=== PATIENT | female | born 1945 | race Caucasian/White ===

== ENCOUNTER 2020-09-27 13:11 | Outpatient (CLI) | payer MEDICARE, SELFPAY ==
--- NOTE | ~2020-09-27 | XR_ITS ---
EXAMINATION: XR knee LT 3V DATE: 09/27/2020 13:37 INDICATION: Left knee pain TECHNIQUE: Three views of the left knee were obtained. COMPARISON: None. FINDINGS: Alignment is normal. No fracture or osteochondral lesion. There is moderate tricompartmenta l osteoarthritis. No joint effusion/synovitis. Soft tissues are unremarkable. IMPRESSION: 1. Moderate tricompartmental osteoarthritis. Reviewed, dictated and finalized at location A. PHONE SERVICES SALES REPRESENTATIVE
== END 2020-09-27 13:12 | disposition home or self-care (01) ==
PROVIDERS: PCP Physician Assistant; Referring Provider Orthopaedic Surgery; Visit Provider Physician Assistant
DX: M25.562 Pain in left knee (principal); M17.12 Unilateral primary osteoarthritis, left knee
CPT/HCPCS: 73562

== ENCOUNTER 2020-10-21 08:29 | Outpatient (CLI) | payer MEDICARE, SELFPAY ==
--- NOTE | ~2020-10-21 | DEXA_ITS ---
Bone Density Report Name: Joanie Hyde Age: 75 Sex: Female Ethnicity: White Date of : 1945 Indication: postmenopausal; prior fracture; hysterectomy; Referring Provider: Sj Garcia Study: Bone densitometry was performed. Exam Date: October 21, 2020 Accession number: [id number] Bone Density: Region BMD T-score Z-score Classification AP Spine (L1, L4) 0.899 -1.3 1.3 Osteopenia Femoral Neck (Left) 0.604 -2.2 0.0 Osteopenia Total Hip (Left) 0.868 -0.6 1.3 Normal Total Hip Bilateral Avg 0.853 -0.8 1.2 Normal Femoral Neck (Right) 0.627 -2.0 0.2 Osteopenia Total Hip (Right) 0.836 -0.9 1.0 Normal World Health Organization criteria for BMD impression classify patients as: Normal (T-score at or above -1.0), Osteopenia (T-score between -1.0 and -2.5), or Osteoporosis (T-score at or below -2.5). 10-year Fracture Risk(1): Major Osteoporotic Fracture 22% Hip Fracture 6.1% Reported Risk Factors: [place] (), Neck BMD=0.604, BMI=25.7, previous fracture (1) FRAX(R) Version 3.08. Fracture probability calculated for an untreated patient. Fracture probability may be lower if the patient has received treatment. Previous Exams: Region Exam Age BMD T-score BMD Change BMD Change Date g/cm2 vs Baseline vs Previous AP Spine(L1, L4) 10/21/2020 75 0.899 -1.3 -0.151(-14.4%) -0.151(-14.4%) 02/16/2011 65 1.050 0.1 Total Hip(Left) 10/21/2020 75 0.868 -0.6 -0.005(-0.6%)# -0.005(-0.6%)# 02/16/2011 65 0.873 -0.6 Total Hip(Right) 10/21/2020 75 0.836 -0.9 -0.034(-3.9%)# -0.034(-3.9%)# 02/16/2011 65 0.870 -0.6 *Denotes significance at 95% confidence level, LSC for AP Spine = 0.022 g/cm2, LSC for Total Hip = 0.027 g/cm2 Clinical Information Provided by Patient: Has had a low trauma fracture Has used the following medications: Fosamax (i.e. alendronate), Vitamin D, Calcium Has the following medical conditions: Hysterectomy Patient maximum height was 63 Does not regularly consume dairy products Onset of menses at age 7 Number of children 0 Impression: The patient has low bone mass, based on the Left Femoral Neck T-score. The patient has an estimated ten-year risk of hip fracture of 6.1% and an estimated ten-year risk of major fracture of 22%, based on the WHO FRAX algorithm. The patient has risk factors, including: previous fracture. No significant bone loss was observed. Discussion: BONE DENSITY IS LOW AT ONE OR MORE SKELETAL SITE
== END 2020-10-21 08:30 | disposition home or self-care (01) ==
PROVIDERS: PCP Physician Assistant; Visit Provider Physician Assistant
DX: M81.0 Age-related osteoporosis without current pathological fracture (principal); M85.852 Other specified disorders of bone density and structure, left thigh; M85.851 Other specified disorders of bone density and structure, right thigh; M85.88 Other specified disorders of bone density and structure, other site
CPT/HCPCS: 77080

== ENCOUNTER 2021-02-05 06:41 | Outpatient (CLI) | payer MEDICARE, SELFPAY ==
--- NOTE | 2021-02-05 07:30 | ECG_ITS ---
Measurements Intervals [place] Rate: 58 P: 28 ND: 180 QRS: 14 QRSD: 78 T: 31 QT: 422 QTc: 416 Interpretive Statements SINUS BRADYCARDIA BASELINE ARTIFACT- II, III, AVR, AVL, AVF, V1-V6 BORDERLINE ECG Electronically Signed On 02-05-2021 7:54:37 CDT by Jason Maldonado D.O.
== END 2021-02-05 06:42 | disposition home or self-care (01) ==
PROVIDERS: PCP Family Medicine; Visit Provider Family Medicine
DX: Z01.818 Encounter for other preprocedural examination (principal); R94.31 Abnormal electrocardiogram [ECG] [EKG]
CPT/HCPCS: 93005

== ENCOUNTER 2021-03-02 07:53 | Outpatient (CLI) | payer MEDICARE, SELFPAY ==
[2021-03-02 09:34] LABS: Basophils Percent Auto 0.5 % (0.2-1.2); Eosinophils Absolute Auto 0.1 K/mm3 (0-0.3); Eosinophils Percent Auto 2.3 % (0-4.4); Hematocrit 37.1 % (37.0-47.0); Hemoglobin 12.2 g/dL (12.0-15.0); Immature Granulocyte Absolute 0.01 K/mm3 (0.00-0.031); Immature Granulocyte Percent A 0.3 % (0-0.5); Lymphocytes Absolute Auto 1.63 K/mm3 (0.9-3.2); Lymphocytes Percent Auto 40.8 % (18.3-44.2); Mean Corpuscular HGB Conc 32.9 g/dl (32-36); Mean Corpuscular Hemoglobin 30.3 pg (26-34); Mean Corpuscular Volume 92.3 fl (80-100); Mean Platelet Volume 11.4 fl (7.4-10.4); Monocytes Absolute Auto 0.4 K/mm3 (0.1-0.6); Monocytes Percent Auto 9.5 % (2.6-8.5); Neutrophils Absolute Auto 1.9 K/mm3 (1.3-6.7); Neutrophils Percent Auto 46.6 % (45.5-73.1); Platelet Count Result 218 k/mm3 (150-375); Red Blood Count 4.02 M/mm3 (4.2-5.4); Red Cell Distribution Width 13.2 % (11.5-14.5)
[2021-03-02 09:56] LABS: Albumin Level 4.4 g/dL (3.5-5.1); Anion Gap 8 mmol/L (8-16); Blood Urea Nitrogen 11 mg/dL (7-17); Calcium 9.2 mg/dL (8.4-10.2); Carbon Dioxide 27 mmol/L (22-30); Chloride 98 mmol/L (98-107); Estimated Glomerular Filt Rate > 60; Glucose 94 mg/dL (65-110); Potassium 3.9 mmol/L (3.4-5.0); Sodium 133 mmol/L (137-145)
[2021-03-02 10:07] LABS: Hemoglobin A1C 5.9 % (<5.7)
[2021-03-02 10:36] LABS: Urine Cotinine NEGATIVE
== END 2021-03-02 07:54 | disposition home or self-care (01) ==
LOC: ANHSURGERY 07:57
PROVIDERS: PCP Family Medicine; Visit Provider Orthopaedic Surgery
DX: M17.12 Unilateral primary osteoarthritis, left knee (principal); Z01.818 Encounter for other preprocedural examination
CPT/HCPCS: 80048; 80307; 82040; 83036; 85025; 87070

== ENCOUNTER 2021-05-04 07:52 | Outpatient (CLI) | payer MEDICARE, SELFPAY ==
[2021-05-04 08:21] LABS: Basophils Percent Auto 0.3 % (0.2-1.2); Eosinophils Absolute Auto 0.1 K/mm3 (0-0.3); Eosinophils Percent Auto 2.7 % (0-4.4); Hematocrit 36.4 % (37.0-47.0); Immature Granulocyte Absolute 0.01 K/mm3 (0.00-0.031); Immature Granulocyte Percent A 0.3 % (0-0.5); Lymphocytes Absolute Auto 1.56 K/mm3 (0.9-3.2); Lymphocytes Percent Auto 42.3 % (18.3-44.2); Mean Corpuscular Hemoglobin 32.2 pg (26-34); Mean Corpuscular Volume 97.6 fl (80-100); Mean Platelet Volume 10.7 fl (7.4-10.4); Monocytes Absolute Auto 0.4 K/mm3 (0.1-0.6); Monocytes Percent Auto 10.3 % (2.6-8.5); Neutrophils Absolute Auto 1.6 K/mm3 (1.3-6.7); Neutrophils Percent Auto 44.1 % (45.5-73.1); Platelet Count Result 212 k/mm3 (150-375); Red Blood Count 3.73 M/mm3 (4.2-5.4); Red Cell Distribution Width 13.7 % (11.5-14.5); White Blood Count 3.7 K/mm3 (4.5-10.0)
[2021-05-04 09:45] LABS: Albumin Level 4.5 g/dL (3.5-5.1); Anion Gap 8 mmol/L (8-16); Blood Urea Nitrogen 12 mg/dL (7-17); Calcium 9.3 mg/dL (8.4-10.2); Carbon Dioxide 29 mmol/L (22-30); Chloride 102 mmol/L (98-107); Estimated Glomerular Filt Rate > 60; Glucose 99 mg/dL (65-110); Sodium 139 mmol/L (137-145)
[2021-05-04 10:58] LABS: Urine Cotinine NEGATIVE
== END 2021-05-04 07:53 | disposition home or self-care (01) ==
LOC: ANHSURGERY 07:58
PROVIDERS: PCP Family Medicine; Visit Provider Orthopaedic Surgery
DX: Z01.812 Encounter for preprocedural laboratory examination (principal); M17.12 Unilateral primary osteoarthritis, left knee; Z51.81 Encounter for therapeutic drug level monitoring; Z79.899 Other long term (current) drug therapy
CPT/HCPCS: 80048; 80307; 82040; 85025; 86850; 86900; 86901; 87070

== ENCOUNTER 2021-05-10 00:19 | Day surgery (SDC) | payer MEDICARE, SELFPAY ==
[2021-03-02 08:19] VITALS: BP 118/62; PULSE 66; RESP 18; TEMP 36.7; O2SAT 97; BMI 23.3
[2021-04-26 15:11] VITALS: BMI 25.7
--- NOTE | 2021-05-07 07:42 | PM.IMHP ---
H&P: HPI History of Present Illness Date/Time: 05/07/21 07:42 75-year-old female patient of Dr. Plunkett who presents today for left [place] partial knee replacement versus total knee arthroplasty. She has been having pain in his knee for years. Tried a cortisone injection in the past without improvement of her symptoms. She has tried physical therapy. She continues to have symptoms on a daily basis. She has cshs-vt-prst arthritis medial compartment of the knee. She feels that the pain is affecting her daily basis particular daily activities. She feels at this point she would like to proceed with surgery rather continue nonsurgical treatment. She has been evaluated is felt to be a good candidate for partial knee replacement. Chief Complaint: Left knee DJD Review of Systems Review of Systems: All systems reviewed & are unremarkable except as noted in HPI and below PMFSH Past Medical History Medical History Acute psychosis Anxiety Bilateral cataracts Chronic right-sided low back pain without sciatica Dyslipidemia Ganglion cyst of finger correction current use of antipsychotic medication Mood disorder Severe anxiety Wart Surgical History Surgical History History of hysterectomy History of toe surgery wart removal-right foot 5th toe Family History Family History Mother Family history of Parkinson's disease Sibling Patient's sister is in good health Family history of throat cancer, Onset Age: 39 Patient's brother is Other Family history of malignant neoplasm of breast Family history of malignant neoplasm of breast in first degree relative Social History Social History Second hand tobacco smoke exposure: No Alcohol intake: never Substance use: never Substance use type: does not use Additional living arrangements comments: HUSB Gender identity (if verbalized by the patient): Female Spiritual care concerns: No Agree to blood products: Yes Meds Home Medications and Allergies Home Medications Medication Instructions Recorded Confirmed Type buspirone 5 mg tablet 5 mg PO BID 09/16/19 04/26/21 History calcium carb 300 mg-D3 800 1 tablet PO TID tablet 09/16/19 04/26/21 History 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 0.5 mg-vikas-Zn tablet divalproex 250 mg tablet,delayed 250 mg PO Q12H 09/16/19 04/26/21 History release flaxseed oil 1,000 mg capsule 1,000 mg PO BID 09/16/19 04/26/21 History multivitamin with minerals 1 tablet PO DAILY 09/16/19 04/26/21 History risperidone 0.5 mg tablet 0.5 mg PO BID 09/16/19 04/26/21 History biotin 5,000 mcg disintegrating 5,000 mcg PO DAILY 06/10/20 04/26/21 History tablet garlic 1,000 mg capsule 1,000 mg PO DAILY 09/21/20 04/26/21 History cholecalciferol (vitamin D3) 50 mcg PO DAILY 03/02/21 04/26/21 History srvlt-jibpj-0-ygw-wsk-wlgfwt 1 cap PO DAILY 03/02/21 04/26/21 History Allergies Allergy/AdvReac Type Severity Reaction Status Date / Time cat dander Allergy Unknown Unknown Verified 04/29/21 10:05 Iodinated Contrast Media Allergy Unknown Hives Verified 04/29/21 10:02 Exam Narrative: 75-year-old female alert pleasant. She is 5 ft 2 and 143 lb. She has a very minimal effusion in the left knee. Range of motion is from 2-135 degrees. Hip range of motion is full without discomfort. She has moderate tenderness over the medial joint line palpation. She has no pain with patellofemoral grind. No lateral joint line tenderness. She has pseudolaxity medially to valgus stress. 2+ dorsalis pedis and posterior tibial artery pulse. No numbness or tingling in the left lower extremity. extremity. Resp: Auscultation: clear to auscultation bilaterally Cardio: Rate: regular rate Rhythm: regular rhythm Assessment and Plan Bang
--- NOTE | 2021-05-07 13:59 | WPDANESEPPF ---
Anes - Initial Pre Proc Eval Procedure: Operation Date: 05/10/21 07:30 Proposed Procedures p Left [place] Partial Knee Replacement Versus Possible Left Total Knee Arthroplasty - Dalton Bowser MD Date/Time: 05/07/21 13:59 Surgeon: Dalton Bowser MD Pre Op Diagnosis: medial compartment OA left knee Patient Data Age: 75 Gender: F Height: 1.59 m Weight: 65 kg Last Vital Signs Temp 98.0 F 03/02/21 08:19 Pulse 66 03/02/21 08:19 Resp 18 03/02/21 08:19 BP 118/62 03/02/21 08:19 Pulse Ox 97 03/02/21 08:19 Allergies Allergy/AdvReac Type Severity Reaction Status Date / Time cat dander Allergy Unknown Unknown Verified 05/10/21 06:09 Iodinated Contrast Media Allergy Unknown Hives Verified 05/10/21 06:09 Home Medications Medication Instructions Recorded Confirmed Type buspirone 5 mg tablet 5 mg PO BID 09/16/19 05/10/21 History calcium carb 300 mg-D3 800 1 tablet PO TID tablet 09/16/19 05/10/21 History unit-mag ox 25 mg-coper hand 0.5 mg-vikas-Zn tablet divalproex 250 mg tablet,delayed 250 mg PO Q12H 09/16/19 05/10/21 History release flaxseed oil 1,000 mg capsule 1,000 mg PO BID 09/16/19 05/10/21 History multivitamin with minerals 1 tablet PO DAILY 09/16/19 05/10/21 History risperidone 0.5 mg tablet 0.5 mg PO BID 09/16/19 05/10/21 History biotin 5,000 mcg disintegrating 5,000 mcg PO DAILY 06/10/20 05/10/21 History tablet garlic 1,000 mg capsule 1,000 mg PO DAILY 09/21/20 05/10/21 History cholecalciferol (vitamin D3) 50 mcg PO DAILY 03/02/21 05/10/21 History jmdlz-mybdd-[id number]-ayi-[id number]-mvbqre 1 cap PO DAILY 03/02/21 05/10/21 History Patient hx anesthesia problems: none Family hx anesthesia problems: none Results Review: All pre-operative results and documents have been reviewed as part of the pre-operative evaluation. 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 of antipsychotic medication Mood disorder Severe anxiety Wart Surgical History Surgical History History of hysterectomy History of toe surgery wart removal-right foot 5th toe Family History Family History Mother Family history of Parkinson's disease Sibling Patient's sister is in good health Family history of throat cancer, Onset Age: 39 Patient's brother is Other Family history of malignant neoplasm of breast Family history of malignant neoplasm of breast in first degree relative Social History Social History Second hand tobacco smoke exposure: No Alcohol intake: never Substance use: never Substance use type: does not use Living arrangements: with family Additional living arrangements comments: PERRY Gender identity (if verbalized by the patient): Female Spiritual care concerns: No Agree to blood products: Yes Anes - Eval Final PreProcedure Day of Procedure 05/07/21 13:59 Patient weight: normal Heart: regular rate and rhythm Lungs: clear to auscultation Airway: Mallampati scale class II Neurological: alert and oriented Last oral intake: >/= 8 hours ASA classification: III Emergent: no Anesthetic plan: proceed Anesthesia type and monitoring: general LMA and standard monitoring Results Review: All pre-operative results and documents have been reviewed as part of the pre-operative evaluation. Informed Consent: The patient's anesthetic plan and its attendant risks and benefits were discussed with the patient/family/POA. Questions were solicited and answers provided to the satisfaction of the patient/family/POA.
[2021-05-10] VITALS (18 sets, daily range): BP systolic 115–156; BP diastolic 44–95; PULSE 66–90; RESP 13–18; TEMP 36–36.6; O2SAT 94–100
--- NOTE | ~2021-05-10 | XR_ITS ---
EXAMINATION: XR knee LT 2V DATE: 05/10/2021 11:01 CDT INDICATION: Left partial knee arthroplasty TECHNIQUE: 2 views left knee FINDINGS: There is a left partial medial unicompartmental knee arthroplasty in expected position. Noriega bcutaneous gas with fluid and air in the joint and overlying skin juanjose are consistent with recent surgery. No evidence of periprosthetic fracture. IMPRESSION: 1. Recent left partial medial unit compartmental knee arthroplasty. Reviewed, dictated and finalized at location B.
--- NOTE | ~2021-05-10 | XR_ITS ---
EXAMINATION: XR surgery orthopedic DATE: 05/10/2021 09:27 INDICATION: Partial left knee arthroplasty. TECHNIQUE: A single intraoperative fluoroscopic view of the left knee was obtained. I was not present . Fluoroscopy exposure time was 1 minute 15 seconds. COMPARISON: Left knee radiographs 09/27/2020 FINDINGS: The tibial component of a medial compartment arthroplasty is noted in expected position. IMPRESSION: 1. Medial compartment arthroplasty in progress. Reviewed, dictated and finalized at location A.
[2021-05-10] MEDS: LACTATED RINGERS 1,000 ML 30 ML IV CONT ×2 (06:30→11:00)
[2021-05-10] MEDS: ACETAMINOPHEN 500 MG TABLET 1000 MG PO ×3 (06:47→19:19)
[2021-05-10] MEDS: TRANEXAMIC ACID 1,000MG/ISO100 1,000 MG/100 ML BAG 200 MG IVPB (07:00)
--- NOTE | 2021-05-10 07:13 | WPDHPUPDATE1 ---
History and Physical Update Update Date/Time: 05/10/21 07:13 History and Physical has been reviewed, including an updated exam of the patient. There are NO changes in the patient's condition. Risks, benefits, and alternatives have been discussed and questions answered. Patient agrees to proceed with procedure.
[2021-05-10] MEDS: ceFAZolin 2 GM/D5W 50 ML 2 GM/50 ML BAG IVPB (07:30)
[2021-05-10] MEDS: ceFAZolin SODIUM 1 GM VIAL 3 GM IRRIGATION (08:59)
[2021-05-10] MEDS: GENTAMICIN BONE CEMENT REFOBACIN 1 EACH TOPICAL (09:34)
[2021-05-10] MEDS: ceFAZolin SODIUM 1 GM VIAL IV PUSH (10:09)
[2021-05-10] MEDS: TRANEXAMIC ACID 1,000 MG/10 ML AMPUL 1000 MG IV PUSH (10:14)
--- NOTE | 2021-05-10 11:14 | W.PM.PROC2 ---
Procedure Note - Detailed Date of Procedure 05/10/21 Pre-op Diagnosis medial compartment OA left knee Post-op Diagnosis same Procedure Performed [place] partial knee replacement medial compartment left knee Surgeon Dalton Bowser MD Film Spooler Te Anesthesia general Indications Pain Description of Procedure Patient was brought to the operating room and general anesthesia was administered. She was given 2 g of Ancef weight based vancomycin 1 g of tranexamic acid preoperatively and the left leg positioned on the special thigh farley and the knee prepped draped usual fashion. Limb was exsanguinated tourniquet elevated to 250 mmHg. A for inch incision was made from just medial to the superior pole of the patella to medial to the tibial tubercle. Arthrotomy was made in line with the incision. A 1 cm split the vastus medialis utilized for exposure. A little bit of the infrapatellar fat pad was excised. Osteophytes from around the intercondylar notch inferior medial patella and medial femoral condyle anterior tibial plateau were removed. The small spoon was the appropriate size. The 3 mm spoon fit without excessive tension. We linked the 3 mm spoon the tibial cutting guide with the 3 mm G clamp and the guide was pinned in position. We tried to achieve approximately 7? of posterior slope. The vertical and horizontal cuts the tibial wafer were made and the wafer was removed. It was a little bit to in medial to lateral for the size a tibia. He had fluoro any cm and we could see that a would overhang and removed additional 3 mm bone from vertical which allowed the a to over only overhang about 1 mm later when we are assessing the bearing tracking we could see that we could remove 1 more mm of bone from the vertical wall allowing the tibial tray flush with tibia with proper bearing tracking relative to the vertical wall. A guide zonia was inserted down the head medullary canal and we linked the zonia to the small femoral drill guide set at 3 mm. This was positioned on medial femoral condyle about a mm medial to the center line was drawn on the bone and the drill holes were made. Posterior cutting guide applied posterior cut made. 0 mm Jenny in the distal femur milled. Remnants of the posterior horn of medial meniscus were completely excised. We trialed and the 3 mm Feeler was appropriate at 100? of flexion the 1 mm at 20? of flexion. We chose the 2 mm spigot and this was milled and on trialing again 3 Feeler seemed appropriate and the 3 bearing was trialed and had symmetric wiggle in flexion and extension. The impingement guide was placed on the femur the anterior portion milled in a little bit of cartilage removed from posterior aspect medial femoral condyle. And the tibial tray was positioned flush with the vertical wall and the posterior edge of medial plateau and bike in place and toothbrush side used made the slot for the tibial. Step drill was used to make multiple perforations tibial plateau the distal femur. Bony surfaces were thoroughly irrigated and dried. We mixed 1 batch of methyl methacrylate and this was applied the size a [place] tibial component it then pressurized in the medial tibial plateau the tibial component fully seated small bearing on replacing the femur in the 3 mm Feeler placed at 45? of flexion for cement hardening and pressurization and the tourniquet was released. After cement hardening excess cement was carefully sought for removed the limb was re-exsanguinated and tourniquet elevated and we then repeated the cementing process with the small femur in the identical fashion. Tourniquet was released total tourniquet time 106 minutes. After cement hardening excess cement was sought for removed. We trialed the 3 bearing which has appropriate wiggle in flexion extension and appropriate tracking tracking the mm from the vertical wall at 90? and in full hyperextension about 4 mm from the vertical wall. The 3 mm small polyethylene bearing wa
[2021-05-10] MEDS: ONDANSETRON INJ 4 MG/2 ML VIAL IV PUSH (11:38)
--- NOTE | 2021-05-10 12:43 | ADMGEN ---
This patient, Joanie Hyde, was admitted to Medical Room 261-01. Patient/family oriented to hospital policies and general routines including ID bracelet, bed and alarms, visiting hours, pain management, procedures, bathroom and other care routines, personal items, smoking policy, room service/diet, and visiting hours. Information on how to activate the Rapid Response Team has been discussed. Patient/Family are encouraged to report perceived risks to care and to ask questions if they do not understand what they are told or what they should do.
[2021-05-10] MEDS: SENNA/DOCUSATE SODIUM TABLET 2 TAB PO (16:03)
[2021-05-10] MEDS: oxyCODONE HCL (*CRX) 5 MG TAB IR PO ×2 (16:04→20:32)
[2021-05-10] MEDS: FAMOTIDINE 20 MG TABLET PO (20:32)
[2021-05-10] MEDS: DIVALPROEX SODIUM DR 250 MG TABEC PO (20:32)
[2021-05-10] MEDS: busPIRone HCL 5 MG TABLET PO (20:32)
[2021-05-10] MEDS: risperiDONE 0.5 MG TABLET PO (20:33)
[2021-05-11] MEDS: ACETAMINOPHEN 500 MG TABLET 1000 MG PO ×3 (00:19→13:51)
[2021-05-11] MEDS: oxyCODONE HCL (*CRX) 5 MG TAB IR PO ×2 (00:19→04:34)
[2021-05-11 00:52] VITALS: BP 132/54; PULSE 70; RESP 16; TEMP 36.8; O2SAT 98
[2021-05-11 02:15] VITALS: BP 132/54; PULSE 70; RESP 16; TEMP 36.8; O2SAT 98
[2021-05-11 05:47] LABS: Basophils Percent Auto 0.3 % (0.2-1.2); Eosinophils Percent Auto 0.4 % (0-4.4); Hematocrit 28.5 % (37.0-47.0); Hemoglobin 9.5 g/dL (12.0-15.0); Immature Granulocyte Absolute 0.02 K/mm3 (0.00-0.031); Immature Granulocyte Percent A 0.3 % (0-0.5); Lymphocytes Absolute Auto 1.63 K/mm3 (0.9-3.2); Lymphocytes Percent Auto 21.2 % (18.3-44.2); Mean Corpuscular HGB Conc 33.3 g/dl (32-36); Mean Platelet Volume 10.7 fl (7.4-10.4); Monocytes Absolute Auto 0.7 K/mm3 (0.1-0.6); Monocytes Percent Auto 9.6 % (2.6-8.5); Neutrophils Absolute Auto 5.3 K/mm3 (1.3-6.7); Neutrophils Percent Auto 68.2 % (45.5-73.1); Platelet Count Result 192 k/mm3 (150-375); Red Blood Count 2.97 M/mm3 (4.2-5.4); Red Cell Distribution Width 13.4 % (11.5-14.5); White Blood Count 7.7 K/mm3 (4.5-10.0)
[2021-05-11 06:09] LABS: Potassium 3.8 mmol/L (3.4-5.0)
[2021-05-11 06:11] LABS: Anion Gap 3 mmol/L (8-16); Blood Urea Nitrogen 15 mg/dL (7-17); Calcium 8.7 mg/dL (8.4-10.2); Carbon Dioxide 31 mmol/L (22-30); Chloride 97 mmol/L (98-107); Estimated CRCL calculation 34 ml/min; Estimated Glomerular Filt Rate 54; Glucose 105 mg/dL (65-110); Sodium 131 mmol/L (137-145)
[2021-05-11 06:15] VITALS: BP 130/52; PULSE 67; RESP 18; TEMP 36.7; O2SAT 66
--- NOTE | 2021-05-11 06:33 | PM.PNORT ---
Progress Note: A&P Additional Plan Postop 1. Patient is alert and pleasant. Afebrile vital signs are stable. Was having some nausea overnight. She was quite nauseous in recovery room general anesthesia. Has improved. I am going to decrease her narcotic hopefully this will take care of any lasting nausea. Patient has been up walking yesterday with physical therapy. She has been up to the restroom multiple times. Her dressing is dry. Neurovascular she is intact. Will plan to have patient work with Physical therapy this morning as well as this afternoon. If she continues to do well plan discharging her home this afternoon. Morning labs were noted. Subjective Subjective Date/Time Seen: 05/11/21 06:33 Objective Data Vital Signs Vital Signs: Vital Signs - 24 hr 05/10/21 07:02 05/10/21 11:00 05/10/21 11:10 Temperature 36.2 C L 36.6 C Pulse Rate 66 83 79 Respiratory Rate 16 14 17 Blood Pressure 126/95 H 121/51 L 122/50 L Pulse Oximetry 100 97 97 05/10/21 11:20 05/10/21 11:25 05/10/21 11:32 Temperature Pulse Rate 81 81 82 Respiratory Rate 14 14 13 Blood Pressure 130/49 L 133/53 L 130/56 L Pulse Oximetry 97 97 97 05/10/21 11:40 05/10/21 11:55 05/10/21 12:00 Temperature Pulse Rate 87 90 83 Respiratory Rate 16 18 16 Blood Pressure 134/62 115/56 L 156/59 H Pulse Oximetry 97 94 94 05/10/21 12:10 05/10/21 12:25 05/10/21 12:50 Temperature 36.0 C L Pulse Rate 78 77 74 Respiratory Rate 16 16 16 Blood Pressure 135/54 L 145/53 H 127/44 L Pulse Oximetry 95 96 99 05/10/21 13:05 05/10/21 13:35 05/10/21 14:35 Temperature 36.0 C L 36.0 C L 36.4 C L Pulse Rate 75 87 73 Respiratory Rate 16 18 16 Blood Pressure 126/56 L 146/59 H 125/45 L Pulse Oximetry 99 98 96 05/10/21 17:33 05/10/21 18:45 05/10/21 21:53 Temperature 36.4 C 36.3 C L Pulse Rate 72 73 Respiratory Rate 16 16 Blood Pressure 128/50 L 122/51 L Pulse Oximetry 97 98 99 05/11/21 00:52 Temperature 36.8 C Pulse Rate 70 Respiratory Rate 16 Blood Pressure 132/54 L Pulse Oximetry 98 Intake/Output Intake/Output: Intake & Output 05/08/21 05/09/21 05/10/21 05/11/21 23:59 23:59 23:59 23:59 Intake Total 2240 250 Output Total 200 250 Balance 2040 0 Meds/Results Medications: Active Medications Generic Name Dose Route Start Last Admin Trade Name Freq PRN Reason Stop Dose Admin Acetaminophen 1,000 mg 05/10/21 19:00 05/11/21 06:28 Acetaminophen 500 Mg Tablet PO 1,000 mg Q6H NEHA Administration Apixaban 2.5 mg 05/11/21 09:00 Apixaban 2.5 Mg Tablet PO 05/22/21 21:01 Q12HR NEHA Buspirone HCl 5 mg 05/10/21 21:00 05/10/21 20:32 Buspirone Hcl 5 Mg Tablet PO 5 mg Q12HR NEHA Administration Celecoxib 100 mg 05/11/21 08:00 Celecoxib 100 Mg Capsule PO DAILY@0800 NEHA Diphenhydramine HCl 25 mg 05/10/21 12:30 Diphenhydramine Hcl Inj 50 Mg/Ml Vial IV PUSH Q6H PRN Itching Divalproex Sodium 250 mg 05/10/21 21:00 05/10/21 20:[address] 250 Mg Tabec PO 250 mg Q12HR NEHA Administration Famotidine 20 mg 05/10/21 21:00 05/10/21 20:32 Famotidine 20 Mg Tablet PO 20 mg Q12HR NEHA Administration Vancomycin HCl 1,000 mg in 250 mls @ 250 mls/hr 05/10/21 19:00 05/11/21 06:28 Vancomycin 1,000 Mg/D5w 250 Ml IVPB 05/11/21 07:59 250 mls/hr Q12H NEHA Administration Cefazolin Sodium 1 gm in 50 mls @ 100 mls/hr 05/10/21 15:30 05/11/21 00:09 Ancef 1 Gm/D5w 50 Ml Pm IVPB 05/11/21 07:59 Infused Q8H NEHA Infusion Morphine Sulfate 2 mg 05/10/21 12:30 Morphine Sulfate (*Crx) 2 Mg/Ml Inj IV PUSH Q4H PRN Pain Rated 7-10 Naloxone HCl 0.1 mg 05/10/21 12:30 Naloxone Hcl 0.4 Mg/Ml Vial IV PUSH Q2M PRN Opiate Reversal Ondansetron HCl 4 mg 05/10/21 12:30 Ondansetron Inj 4 Mg/2 Ml Vial IV PUSH Q4H PRN Nausea And Vomiting Oxycodone HCl 5 mg 05/10/21 12:30 05/11/21 04:34 Oxycodone Hcl (*Crx)
--- NOTE | 2021-05-11 06:39 | PM.DS ---
DS: Admitting Diagnosis Discharge Date 05 11 Admitting Diagnosis left knee DJD DS: Summary Hospital Course Hospital Course: stable Time Spent with Patient Time attestation: Total time spent providing and/or coordinating discharge services: 75-year-old female who underwent left [place] partial knee replacement on 05/10. Underwent the procedure without any complications. She did have some nausea immediately in recovery room. This slowly improved. She is weight-bearing as tolerated. She was up today of surgery walking and is comfortable. She has some slight nausea overnight but no vomiting. Pain medication was decreased to oxycodone 2.5 mg tab 5 mg hopefully this will continue to work well for pain control without nausea. She is on Celebrex 100 mg daily. She is also on schedule Tylenol. Patient will be discharged home 05 11. She was advised to keep leg elevated to help prevent swelling but do her exercises a regular basis. She has outpatient therapy starting on . She is on Eliquis for DVT prophylaxis for 2 weeks followed by a baby aspirin. She is also on Senokot and MiraLax for constipation. Patient was advised any questions or concerns she is call the office otherwise will see her at her appointed dates DS: Data Data Completed and Pending Labs on day of discharge: Labs from last 24 hours 05/11/21 05/11/21 05:28 05:28 WBC 7.7 RBC 2.97 L Hgb 9.5 L Hct 28.5 L MCV 96.0 MCH 32.0 MCHC 33.3 RDW 13.4 Plt Count 192 MPV 10.7 H Immature Gran % (Auto) 0.3 Neut % (Auto) 68.2 Lymph % (Auto) 21.2 [place] % (Auto) 9.6 H Eos % (Auto) 0.4 Baso % (Auto) 0.3 Lymph # (Auto) 1.63 [place] # (Auto) 0.7 H Eos # (Auto) 0.0 Baso # (Auto) 0.0 Abs Immat Gran (auto) 0.02 Absolute Neuts (auto) 5.3 Absolute Nucleated RBC 0.0 Nucleated RBC % 0.0 Sodium 131 L Potassium 3.8 Chloride 97 L Carbon Dioxide 31 H Anion Gap 3 L BUN 15 Creatinine 1.00 Estim Creat Clear Calc 34 Estimated GFR 54 L Glucose 105 Calcium 8.7 Discharge Plan Discharge Patient Disposition: Home, Self-Care Discharge Instructions: DALTON BOWSER M.D [facility] [address] [place] [address] POST-OPERATIVE DISCHARGE INSTRUCTIONS TOTAL KNEE ARTHROPLASTY 1. When resting, lie on back with leg elevated above hear to minimize swelling. Significant swelling could indicate a blood clot and if this occurs call the office (or go to the ER) to have a venous ultrasound. 2. Do exercise 5 times a day. 3. Do not sit with leg down except for meals. 4. Wound Care: Nursing will give additional dressings at discharge. Patient to change dressing at home 1 week from surgery, then maintain until seen in office. 5. May shower with dressing in place. 6. Follow weight bearing status instructions. 7. Limit sitting in chair with leg down to 30 min at a time 4 times a day Stand Alone Forms: General Discharge Instructions Follow-up/Referrals: Dalton Bowser MD [Physician] - Keep Reg. Scheduled Appt. Discharge Medications: New acetaminophen 500 mg Tablet 1,000 mg PO Q6H Qty: 90 RF: 0 sennosides-docusate sodium [Senokot-S] 8.6-50 mg Tablet 2 tab-cap PO BID Qty: 60 RF: 0 celecoxib [Celebrex] 100 mg Capsule 100 mg PO DAILY@0800 Qty: 30 RF: 0 Eliquis 2.5 mg Tablet 2.5 mg PO Q12HR Qty: 27 RF: 0 polyethylene glycol 3350 [Miralax] 17 gram Powder In Packet 17 g PO QAM Qty: 30 RF: 0 oxycodone 5 mg tablet 2.5 mg PO Q4H Qty: 30 RF: 0 Continued buspirone 5 mg tablet 5 mg PO BID RF: 0 divalproex 250 mg tablet,delayed release (DR/EC) 250 mg PO Q12H RF: 0 risperidone [Risperdal] 0.5 mg tablet 0.5 mg PO BID RF: 0 multivitamin with minerals [Multiple Vitamin-Minerals] Tablet 1 tablet PO DAILY RF: 0 biotin 5,000 mcg tablet,disintegrating 5,000 mcg PO DAILY RF: 0 cho
[2021-05-11] MEDS: ONDANSETRON INJ 4 MG/2 ML VIAL IV PUSH (07:59)
[2021-05-11] MEDS: SENNA/DOCUSATE SODIUM TABLET 2 TAB PO (09:24)
[2021-05-11] MEDS: CELECOXIB 100 MG CAPSULE PO (09:24)
[2021-05-11] MEDS: APIXABAN 2.5 MG TABLET PO (09:24)
[2021-05-11] MEDS: DIVALPROEX SODIUM DR 250 MG TABEC PO (09:24)
[2021-05-11] MEDS: busPIRone HCL 5 MG TABLET PO (09:25)
[2021-05-11] MEDS: risperiDONE 0.5 MG TABLET PO (09:25)
[2021-05-11] MEDS: oxyCODONE HCL (*CRX) 2.5 MG TAB IR PO ×2 (09:25→13:51)
[2021-05-11] MEDS: polyethylene glycoL 3350 17 GM POWD.PACK PO (09:25)
[2021-05-11] MEDS: FAMOTIDINE 20 MG TABLET PO (09:25)
[2021-05-11 10:50] VITALS: BP 120/49; PULSE 65; RESP 18; TEMP 37.1; O2SAT 94
--- NOTE | 2021-05-11 14:55 | PC.NURSE ---
On 05/11/21, the student, Nadege Ruth, provided care and completed [facility] documentation on this patient. I have reviewed the student's documentation and agree with the findings.
== END 2021-05-11 14:14 | disposition home or self-care (01) ==
LOC: ANHSURGERY 05:51 → ANH2MED 12:34
PROVIDERS: Physician Assistant Surgical; PCP Family Medicine; Visit Provider Orthopaedic Surgery
PROC: (CPT 27446; principal; 2021-05-10 07:30)
DX: M17.12 Unilateral primary osteoarthritis, left knee (principal); E78.5 Hyperlipidemia, unspecified; F41.9 Anxiety disorder, unspecified
CPT/HCPCS: 27446; 36415; 73560; 80048; 85025; 97110; 97116; 97161; 97165; 97530; 97535; A9270; C1713; C1776; J0171; J0690; J1100; J1170; J1885; J2270; J2405; J2704; J2795; J3010; J3370; J7120

== ENCOUNTER 2023-09-20 14:09 | Outpatient (CLI) | payer MEDICARE, SELFPAY | END 2023-09-20 14:10 | disposition home or self-care (01) | LOC: ANHAUDIO 14:10 | PROVIDERS: PCP Family Medicine; Visit Provider Otolaryngology | DX: H90.3 Sensorineural hearing loss, bilateral (principal); H61.23 Impacted cerumen, bilateral; J31.0 Chronic rhinitis; J34.2 Deviated nasal septum | CPT/HCPCS: 92557; 92567 ==

== ENCOUNTER 2024-09-11 10:23 | Inpatient (IN) | payer MEDICARE, SELFPAY ==
[2024-09-11] VITALS (8 sets, daily range): BP systolic 129–155; BP diastolic 54–83; PULSE 77–89; RESP 16–33; TEMP 36.9–37.8; O2SAT 94–100; BMI 29.2; BMI 29.0
--- NOTE | ~2024-09-11 | XR_ITS ---
EXAMINATION: XR chest 2V DATE: 09/11/2024 11:28 INDICATION: Fall percent with chest pain, weakness and vomiting. TECHNIQUE: frontal and lateral views of the chest were obtained. COMPARISON: None FINDINGS: Mild streaky atelectasis at the lateral left lung base. No other airspace opacities, pulmonary edema, pleural effusion or pneumothorax. The cardiomediastinal silhouette is normal. Moderate thoracic spon dylosis. IMPRESSION: 1. Mild left basilar atelectasis. Reviewed, dictated and finalized at location A. RIALS MANAGEMENT SUPERVISOR
--- NOTE | ~2024-09-11 | XR_ITS ---
XR pelvis 1-2V 09/11/2024 11:27 Indication: Status post fall. Pelvic pain. Procedure: AP pelvis Comparison: No prior studies for comparison. Findings: There is lower lumbar spondylosis partially visualized. Mild osteoarthritis of the hips. Pe lvic rings are intact. No acute fracture or traumatic malalignment. Sacral foramen are symmetric. Impression: 1: No acute fracture. Reviewed, dictated and finalized at location B. ARCHITECT Impression: 1: No acute fracture.
--- NOTE | ~2024-09-11 | CT_ITS ---
CT head without contrast Indication: Status post fall Technique: Serial scans were obtained through the brain without the administration of contrast. Dose reduction technique was used on this scan by utilizing automated exposure control and iterative recon struction technique. The dose-length product (DLP) was 605.33 mGy-cm. Findings: There is no evidence of intracranial hemorrhage, mass lesion, or acute infarct. The ventri cles and subarachnoid spaces are dilated, consistent with mild atrophy. Low attenuation regions are seen within the periventricular white matter bilaterally, likely representing changes from chronic mi crovascular ischemic disease. There is no evidence of edema, mass effect or midline shift. The visu alized paranasal sinuses and mastoid air cells are clear. Impression: No intracranial hemorrhage, mass, or acute infarct. Atrophy and chronic white matter changes, as above. Reviewed, dictated and finalized at location . RTISING SUPERVISOR Impression: No intracranial hemorrhage, mass, or acute infarct. Atrophy and chronic white matter changes, as above.
--- NOTE | ~2024-09-11 | XR_ITS ---
CHEST RADIOGRAPH CLINICAL HISTORY: Coarse lung sounds . COMPARISON: 09/11/2024 TECHNIQUE: Single portable view of the chest. FINDINGS The cardiomediastinal silhouette is unremarkable. Redemonstration of left basilar atelectasis, now with air bronchograms for which an early infiltrate is suspected. The remainder of the lungs are clear. IMPRESSION: Early left basilar infiltrate suspected. Reviewed, dictated and finalized at location A. E BLENDER
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
--- OUTSIDE RECORDS SUMMARY | 2024-09-11 10:34 | XMS_ITS ---
Author Organization [facility] Address [address] [place] [address] Care Team Providers Care Horse Trainer Name Role Phone Regis Amezcua Primary Care Provider [phone] [facility] Unav ailable Unavailable Allergies Allergen (clinical drug ingredient) Drug/Non Drug Allergy documented on EMR Reaction Allergy Type Onset Date Status Monosodium glutamate MSG (uncoded) Unknown Allergy Active REASON FOR VISIT 3 Month Psych F/U & Med Refill, CSSR Interpretation and Follow UP Plan, discuss medications, BMI over 25 non smoker Medications Medication SIG (Take, Route, Frequency, Duration) Notes Start Date End Date Status busPIRone HCl 5 MG 1 tablet Orally Twic e a day for 90 days Active risperiDONE 0.25 MG 1 tablet bedtime Ora lly Once a day for 90 days Active Divalproex Sodium 250 MG 1 tablet Orally twice a day for 90 days Active Magnesium Oxide 250 MG 1 tablet as neede d Orally Once a day Not-Taking [place] 3 1000 MG 1 capsule Orally Onc e a day Active Calcium Carbonate-Vitamin D 500-200 MG-UNIT 1 tablet with food Orally Once a day Active Social History Tobacco Use: Social History Observation Description Date Details (start date - stop date) Never Smoker NA - NA Sex Assigned At : Social History Observation Description Sex Assigned At Female Tobacco Control (Standard) Question Answer Notes Tobacco use: Nonsmoker Vital Signs Weight 156.0 lbs 08/13/2024 Height 65 in 08/13/2024 BMI 25.96 kg/m2 08/13/2024 Blood pressure systolic 128 mm Hg 08/13/19 25 Blood pressure diastolic 60 mm Hg 025 Heart Rate 77 /min 08/13/2024 Oximetry 97 % 08/13/2024 Respiratory Rate 16 /min 08/13/2024 Encounters Encounter Location Date Provider Diagnosis [address] [place] [address] 08/13/2024 Regis Amezcua Nutritional counseli ng Z71.3 and Schizoaffective disorder F25.9 Assessments Encounter Date Diagnosis (ICD Code) Assessment Notes Treatment Notes Treatment Clinical Notes Section Notes 08/13/2024 Nutritional counseling (ICD-10 - Z71.3) 08/13/2024 Schizoaffective disorder (ICD-10 - F25.9) risk & benefits discussed. Lower Risperdal 0.25 mg HS due to gait issues. Continue other treatment with depakote, Buspar. Depakote level was 38 on 05/27/24. 45 on 08/24/23, was 42.0 on 12/02/22, 40.6 was on 04/25/22 . Was 36 on 05/06/23. Has regular follow up with PCP. No involuntary movement reported. Plan Of Treatment Medication Medication Name Sig Start Date Stop Date Notes busPIRone HCl 5 MG 1 tablet Orally Twic e a day for 90 days risperiDONE 0.25 MG 1 tablet bedtime Ora lly Once a day for 90 days Divalproex Sodium 250 MG 1 tablet Orally twice a day for 90 days Treatment Notes Assessment Notes Schizoaffective disorder risk & benefits discussed. Lower Risperdal 0.25 mg HS due to gait issues. Continue other treatment with depakote, Buspar. Depakote level was 38 on 05/27/24. 45 on 08/24/23, was 42.0 on 12/02/22, 40.6 was on 04/25/22 . Was 36 on 05/06/23. Has regular follow up with PCP. No involuntary movement reported. Next Appt Details Follow Up: 3 Months, Reason: Progress Notes * Joanie LNOG AnniOB:[birth year] (79 yo F)Acc No.[id number]:08/13/2024 Patient: Joanie LLAMAS Provider: Vicki Amezcau :1945 A ge:79 Y S ex:Female Date:08/13/2024 Address:[facility] [address] [place], [id number] Check In:01:28 PM HEEL PRICKER Subjective: * Chief Complaints: * 3 Month Psych F/U & Med RefillCSSR Interpretation and Follow UP PlanDiscuss medicationsBMI over 25 non smoker * HPI: I nterim History: Emergency room visit N o. W as hospitalized N o.? D epression Screening: PHQ-9 L ittle interest or pleasure in doing things S everal days, F eeling down, depressed, or hopeless N ot at all, T rouble falling or staying asleep, or sleeping too much M ore than half the days, F eeling tired or having little energy M ore than half the days, P oor appetite or overeating N ot at all, F eeling bad about yourself or that you are a failure, or have let yourself or your family down N ot at all, Trouble concentrating on things, such as reading the newspaper or watching television S everal days, M oving or speaking so slowly that other people could have noticed; or the opposite, being so fidgety or restless that you have been moving around a lot more than usual M ore than half the days, T houghts that you would be better off or of hurting yourself in some way?Not at all, T otal Score 8 , I nterpretation M ild Depression. C SSRS Interpretation and Follow Up Plan: CSSRS Interpretation and Follow Up Plan C SSRS Screen documented using SF Y es, R isk Disposition from SF L ow - No Follow Up Plan Required, F ollow Up Plan N o Follow Up Plan required at this time.. S creening: [place] Suicide Severity Rating Scale (LF) D o you want to initiate with S creener form, 1 . Wish to be : Have you wished you were or wished you could go to sleep and not wake up? N o, 2 . Suicidal Thoughts: Have you actually had any thoughts of killing yourself? N o, 6 . Suicide Behaviour: Have you ever done anything,started to do anything, or prepared to end your life? N o, I nterpretation: L ow Risk. P reventative Health and Wellness follow-up: Action Plans for Clinical Quality Measures: B reast Cancer Screening: N ot addressed during this visit. See notes for details.. . C onstitutional: Pt came in today with . AIMS is 0 today. Pt reports doing alright. Medicines are working alright. Her depakote level was 38 on 05/27/24. Reports mood has been alright. Appetite is good. Sleep is alright. Denies side effects . Reports taking Risperdal half table twice a day. Denies SI/HI. Denies hallucination or delusion. Denies manic or hypo manic symptoms. Denies hopelessness. VPA level ---36 on 05/06/21, 42 on 05/27/20, 49 on 09/11/18, 33 on 05/03/17, 39 on 01/04/17 and 31, CBC & CMP unremarkable on 05/03/17 & on 09/11/18. Got Moderna covid-19 vaccine. Got Flu & Pneumonia vaccine . Had left knee replacement at [facility] in 04/2021. Took Stelazine in past for many years in . Was diagnosed with Schizoaffective disorder in past. Used to see Dr Doe at [facility]. Her first psych admission in 1980. Also [place] [address] Wagner. Took Abilirajatgeodon in past. She showed me old Zoloft tablets prescribed [place] [address] Wagner. MSE--Alert,Ox3,mood pleasant. Affect is appropriate. Denies SI/HI. Denies manic or hypomanic sxs. Insight & judgement alright. Denies hopeless. Speech nl. Denies hallucination. Memory intact. * Medical History: * Surgical History: D enies Past Surgical History * Hospitalization/Major Diagno stic Procedure: L eft knee surg at [facility] 05/10/2021 * Family History: F ather: , father- age 99- old age. M other: , mother- age 91- parkinsons. 2 sister(s) - healthy. . * Social History: P rimary Social History: L iving Arrangement L iving Arrangement: I ndependent Living , I s this a supportive environment? Y es. A lcohol Use A lcohol Use Frequency: N ever. I llicit Substance Usage I llicit Substance Usage: N o. E mployment Status E mployment Status: U nemployed retired. T obacco Use: T obacco Control (Standard) T obacco use: N onsmoker. M iscellaneous: M ethod of learning P referred method of learning: R eading. * Medications: T akingCalcium Carbonate-Vitamin D 500-200 MG-UNIT Tablet 1 tablet with food Orally Once a day [place] 3 1000 MG Capsule 1 capsule Orally Once a day busPIRone HCl 5 MG Tablet 1 tablet Orally Twice a day risperiDONE 0.5 MG Tablet 1 tablet bedtime Orally twice a day Divalproex Sodium 250 MG Tablet Delayed Release 1 tablet Orally twice a day Taking Calcium Carbonate-Vitamin D 500-200 MG-UNIT Tablet 1 tablet with food Orally Once a day Taking [place] 3 1000 MG Capsule 1 capsule Orally Once a day Taking busPIRone HCl 5 MG Tablet 1 tablet Orally Twice a day Taking risperiDONE 0.5 MG Tablet 1 tablet bedtime Orally twice a day Taking Divalproex Sodium 250 MG Tablet Delayed Release 1 tablet Orally twice a day Not-TakingMagnesium Oxide 250 MG Tablet 1 tablet as needed Orally Once a day Not-Taking Magnesium Oxide 250 MG Tablet 1 tablet as needed Orally Once a day * Allergies: M SGno[Allergies Verified] Objective: * Vitals: I nitials: cv, Wt:156.0, Ht: 65, BMI:25.96, BP:128/60, HR:77, Oxygen sat %:97, RR:16, LMP: n/a, Pain scale:0. Assessment: * Assessment: 1. N utritional counseling - Z71.3 (Primary) 2 . S chizoaffective disorder - F25.9 Plan: * Treatment: * Recommended Wellness and Pre vention Guidelines: * S tatus A lert L ast Done N ext Due A ction Taken N ONCOMPLIANT A lcohol use screening - 0 08/13/2024 - N ONCOMPLIANT B reast cancer screening - 0 08/13/2024 - N ONCOMPLIANT C holesterol screen (genl pop) - 0 08/13/2024 - N ONCOMPLIANT D epression followup 1 07/30/2022 0 08/13/2024 - N ONCOMPLIANT I nfluenza vaccine (over 50) - 0 08/13/2024 - N ONCOMPLIANT P neumococcal vaccine - 0 08/13/2024 - * Procedure Codes: 3 008F BODY MASS INDEX [id number] MEDICAL NUTRITION, INDIV, [id number] TOBACCO [id number] [facility] VISIT ESTABLISHED PATIENT * Preventive Medicine: Counseling: C are goal follow-up plan: B PR management provided Y nazanin, Vicki morton Normal BMI Follow-up L ifestyle education regarding diet. * Follow Up: 3 Months * * PRICKER Sign off status: Completed true * Provider: Vicki Amezcua Date: 0 08/13/2024 Generated for Jose forbes/Rosa Maria/Bibiana on: 0 09/11/2024 10:34 AM HEEL PRICKER History and Physical Notes * HPI (History of Present Illness) Category Sub-Category Detail Notes Category Not es Interim History Was hospitalized No Emergency room visit No Depression Screening PHQ-9 Little inte rest or pleasure in doing things: Several days Feeling down, depressed, or hopeless: No t at all Trouble falling or staying a sleep, or sleeping too much: More than half the days Feeling tired or having little energy: M ore than half the days Poor appetite or overeating: Not at all Feeling bad about yourself o r that you are a failure, or have let yourself or your family down: Not at all Trouble concentrating on thi ngs, such as reading the newspaper or watching television: Several days Moving or speaking so slowly that other people could have noticed; or the opposite, being so fidgety or restless that you have been moving around a lot more than usual: More than half the days Thoughts that you would be b wild off or of hurting yourself in some way: Not at all Total Score: 8 Interpretation: Mild Depression Constitutional Pt came in today with . AIMS is 0 today. Pt reports doing alright. Medicines are working alright. Her depakote level was 38 on 05/27/24. Reports mood has been alright. Appetite is good. Sleep is alright. Denies side effects . Reports taking Risperdal half table twice a day. Denies SI/HI. Denies hallucination or delusion. Denies manic or hypo manic symptoms. Denies hopelessness. VPA level ---36 on 05/06/21, 42 on 05/27/20, 49 on 09/11/18, 33 on 05/03/17, 39 on 01/04/17 and 31, CBC & CMP unremarkable on 05/03/17 & on 09/11/18. Got Moderna covid-19 vaccine. Got Flu & Pneumonia vaccine . Had left knee replacement at [facility] in 04/2021. Took Stelazine in past for many years in . Was diagnosed with Schizoaffective disorder in past. Used to see Dr Doe at [facility]. Her first psych admission in 1980. Also [place] [address] [place]. Took Abilify,geodon in past. She showed me old Zoloft tablets [place] [address] Wagner. MSE--Alert,Ox3,mood pleasant. Affect is appropriate. Denies SI/HI. Denies manic or hypomanic sxs. Insight & judgement alright. Denies hopeless. Speech nl. Denies hallucination. Memory intact. Screening [place] Suicide Severity Rating Scale (LF) Do you want to initiate with: Screener form 1. Wish to be : Have you wished you were or wished you could go to sleep and not wake up?: No 2. Suicidal Thoughts: Have you actually had any thoughts of killing yourself?: No 6. Suicide Behavior Question: Have you ever done anything,started to do anything, or prepared to end your life?: No Interpretation:: Low Risk Preventative Health and Wellness follow-up Action Plans for Clinical Quality Measures: Breast Cancer Screening:: Not addressed during this visit. See notes for details. . CSSRS Interpretation and Follow Up Plan CSSRS Interpretation and Follow Up Plan CSSRS Screen documented using SF: Yes Risk Disposition from SF: Low - No Follo w Up Plan Required Follow Up Plan: No Follow Up Plan requir ed at this time.
--- OUTSIDE RECORDS SUMMARY | 2024-09-11 10:34 | XMS_ITS | Referral Summary ---
Author Organization [facility] Address [address] [place] [address] Care Team Providers Care Wood Buffer Name Role Phone Cristine Plunkett MD Primary Care Provider [phone] Source Comments [facility] Affiliates and Associated Physician Practices is amultiple site organization consisting of ambulatory clinics and hospital sitesin [place], [place], [place] and [place]. This disclosure is being madepursuant to the Care Everywhere program and may not contain all information available regarding this patient. Last updated 18.[facility] Allergies Active Allergy Reactions Criticality Noted Date [...] times daily Active Fluticasone Propionate (FLONASE NA) [place] into the nose as needed Active vitamin [...] Orientation Not on file Plan of Treatment Not on file Care Teams Wood Buffer Relationship Specialty Start Date End Date Cristine Plunkett MD [address] [place] [address] PCP - General 02/15/21
--- OUTSIDE RECORDS SUMMARY | 2024-09-11 10:34 | XMS_ITS ---
Author Organization [facility] Address [address] [place] [address] Care Team Providers Care Manager Convention Name Role Phone Regis Amezcua Primary Care Provider [phone] [facility] Unav ailable Unavailable Allergies Allergen (clinical drug ingredient) Drug/Non Drug Allergy documented on EMR Reaction Allergy Type Onset Date Status Monosodium glutamate MSG (uncoded) Unknown Allergy Active Results Component Value Reference Range Notes CBC With Differential/Platel et* Reviewed date:06/04/2024 04:08:17 PM Interpretation: Performing Lab:[facility], [address] [facility], [place], Phone - [phone], Director - Hilario Notes/Report: WBC 3.7 3.4-10.8 x10E3/uL RBC 4.29 3.77-5.28 x10E6/uL Hemoglobin 13.3 11.1-15.9 g/dL Hematocrit 41.4 34.0-46.6 % MCV 97 79-97 fL MCH 31.0 26.6-33.0 pg MCHC 32.1 31.5-35.7 g/dL RDW 12.8 11.7-15.4 % Platelets 228 150-450 x10E3/uL Neutrophils 54 Not Estab. % Lymphs 34 Not Estab. % Monocytes 10 Not Estab. % Eos 2 Not Estab. % Basos 0 Not Estab. % Neutrophils (Absolute) 2.0 1.4-7.0 x10E3/uL Lymphs (Absolute) 1.2 0.7-3.1 x10E3/uL Monocytes(Absolute) 0.4 0.1-0.9 x10E3/uL Eos (Absolute) 0.1 0.0-0.4 x10E3/uL Baso (Absolute) 0.0 0.0-0.2 x10E3/uL Immature Granulocytes 0 Not Estab. % Immature Grans (Abs) 0.0 0.0-0.1 x10E3/uL Valproic Acid (Depakote)(R), S Reviewed date:06/04/2024 04:07:13 PM Interpretation: Performing Lab:[facility] [place], [address] [facility], Phone - [phone], Director - [facility] Notes/Report: Valproic Acid (Depakote)(R),S 38 50-100 ug/m L Detection Limit = 4 <4 indicates None Detected . Toxicity may occur at levels of 100-500. Measurements of free unbound valproic acid may improve the assess- ment of clinical response. CMP 14 Comprehensive Metabol ic Panel* Reviewed date:06/04/2024 04:08:32 PM Interpretation: Performing Lab:[facility] [place], [address] [facility], Phone - [phone], Director - [facility] Notes/Report: Glucose 95 70-99 mg/dL BUN 14 8-27 mg/dL Creatinine 0.92 0.57-1.00 mg/dL eGFR 63 >59 mL/min/1.73 BUN/Creatinine Ratio 15 12-28 Sodium 137 134-144 mmol/L Potassium 4.0 3.5-5.2 mmol/L Chloride 99 96-106 mmol/L Carbon Dioxide, Total 23 20-29 mmol/L Calcium 9.4 8.7-10.3 mg/dL Protein, Total 6.9 6.0-8.5 g/dL Albumin 4.5 3.7-4.7 g/dL Globulin, Total 2.4 1.5-4.5 g/dL Bilirubin, Total 0.3 0.0-1.2 mg/dL Alkaline Phosphatase 66 44-121 IU/L AST (SGOT) 19 0-40 IU/L ALT (SGPT) 12 0-32 IU/L REASON FOR VISIT 3 Month Psych F/U & Med Refill, CSSR Interpretation and Follow UP Plan, BMI over 25 non smoker Medications Medication SIG (Take, Route, Frequency, Duration) Notes Start Date End Date Status Calcium Carbonate-Vitamin D 500-200 MG-UNIT 1 tablet with food Orally Once a day Active Magnesium Oxide 250 MG 1 tablet as neede d Orally Once a day Not-Taking risperiDONE 0.5 MG 1 tablet bedtime Ora lly twice a day for 90 days Active Divalproex Sodium 250 MG 1 tablet Orally twice a day for 90 days Active [place] 3 1000 MG 1 capsule Orally Onc e a day Active busPIRone HCl 5 MG 1 tablet Orally Twic e a day for 90 days Active Social History Tobacco Use: Social History Observation Description Date Details (start date - stop date) Never Smoker NA - NA Sex Assigned At : Social History Observation Description Sex Assigned At Female Dont use, Tobacco Use/Smoking Question Answer Notes Are you a nonsmoker Tobacco Control (Standard) Question Answer Notes Tobacco use: Nonsmoker Vital Signs Weight 153 lb 2 oz lbs 05/21/2024 Oximetry 96 % 05/21/2024 Heart Rate 99 /min 05/21/2024 Blood pressure systolic 122 mm Hg 05/21/20 24 Blood pressure diastolic 76 mm Hg 024 Height 65 in 05/21/2024 BMI 25.48 kg/m2 05/21/2024 Encounters Encounter Location Date Provider Diagnosis [address] [address] 05/21/2024 Regis Amezcua Nutritional counseli ng Z71.3 and Schizoaffective disorder F25.9 Assessments Encounter Date Diagnosis (ICD Code) Assessment Notes Treatment Notes Treatment Clinical Notes Section Notes 05/21/2024 Nutritional counseling (ICD-10 - Z71.3) 05/21/2024 Schizoaffective disorder (ICD-10 - F25.9) risk & benefits discussed. Continue current treatment. Repeat depakote level, CBC, CMPDepakote level was 45 on 08/24/23, was 42.0 on 12/02/22, 40.6 was on 04/25/22 . Was 36 on 05/06/23. Has regular follow up with PCP. No involuntary movement reported. Plan Of Treatment Medication Medication Name Sig Start Date Stop Date Notes risperiDONE 0.5 MG 1 tablet bedtime Ora lly twice a day for 90 days Divalproex Sodium 250 MG 1 tablet Orally twice a day for 90 days busPIRone HCl 5 MG 1 tablet Orally Twic e a day for 90 days Treatment Notes Assessment Notes Schizoaffective disorder risk & benefits discussed. Continue current treatment. Repeat depakote level, CBC, CMPDepakote level was 45 on 08/24/23, was 42.0 on 12/02/22, 40.6 was on 04/25/22 . Was 36 on 05/06/23. Has regular follow up with PCP. No involuntary movement reported. 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 Subjective: * Chief Complaints: * 3 Month Psych F/U & Med RefillCSSR Interpretation and Follow UP PlanBMI over 25 non smoker * HPI: I [...] F eeling tired or having little energy S everal days, P oor appetite or overeating S everal days, F eeling bad about yourself or that you are a failure, or have let yourself or your family down N ot at all, T rouble concentrating on things, such as reading the newspaper or watching television S everal days, M oving or speaking so slowly that other people could have noticed; or the opposite, being so fidgety or restless that you have been moving around a lot more than usual N ot at all, T houghts that you would be better off or of hurting yourself in some way N ot at all. S creening: [place] Suicide Severity Rating Scale (LF) D o [...] Clinical Quality Measures: B reast Cancer Screening: D iscussed need for breast cancer screening. Patient declined.. . C SSRS Interpretation and Follow Up Plan: CSSRS Interpretation and Follow Up Plan. CSSRS Interpretation and Follow Up Plan C SSRS Screen documented using SF Y es, M oderate or High risk requires selection of a follow up plan C SSRS No/Low: intervention not needed at this time. C onstitutional: Phone session today Pt reports doing alright. She tried to stop AM risperdal for 5 days but became more anxious. Now back on previous dose. Medicines are working alright. Her depakote level was 45 on 08/24/11. Reports mood has been alright. Appetite is good. Sleep is alright. Denies side effects . Reports taking medicines as prescribed. Denies SI/HI. Denies hallucination or delusion. Denies manic or hypo manic symptoms. Denies hopelessness. VPA level ---36 on 05/06/21, 42 on 05/27/20, 49 on 09/11/18, 33 on 05/03/17, 39 on 01/04/17 and 31, CBC & CMP unremarkable on 05/03/17 & on 09/11/18. Got Moderna covid-19 vaccine. Got Flu & Pneumonia vaccine . Had left knee replacement at [facility] in 04/2021. Took Stelazine in past for many years in s. Was diagnosed with Schizoaffective disorder in past. Used to see Dr Doe at [facility], [place]. Her first psych admission in 1980. Also [place] [address] Wagner. Took arron Saunders in past. She showed me old Zoloft tablets prescribed [place] [address] Wagner. MSE--Alert,Ox3,mood pleasant. Affect is appropriate. Denies SI/HI. Denies manic or hypomanic sxs. Insight & judgement alright. Denies hopeless. Speech nl. Denies hallucination. Memory intact. * Medical History: * Surgical History: * Hospitalization/Major Diagno stic Procedure: * Social History: P rimary Social History: L iving Arrangement L iving Arrangement: I ndependent Living , I s this a supportive environment? Y es. A lcohol Use A lcohol Use Frequency: N ever. I llicit Substance Usage I llicit Substance Usage: N o. E mployment Status E mployment Status: U nemployed retired. T obacco Use: D ont use, Tobacco Use/Smoking A re you a n onsmoker. T obacco Control (Standard)?Tobacco use: N onsmoker. M iscellaneous: M ethod of learning P referred method of learning: R josé. * Medications: T akingCalcium Carbonate-Vitamin D 500-200 MG-UNIT Tablet 1 tablet with food Orally Once a day [place] 3 1000 MG Capsule 1 capsule Orally Once a day busPIRone HCl 5 MG Tablet 1 tablet Orally Twice a day risperiDONE 0.5 MG Tablet 1 tablet bedtime Orally twice a day Divalproex Sodium 250 MG Tablet Delayed Release 1 tablet Orally twice a day Taking Calcium Carbonate-Vitamin D 500-200 MG-UNIT Tablet 1 tablet with food Orally Once a day Taking [place] 3 1000 MG Capsule 1 capsule Orally [...] Orally Once a day * Allergies: M SG Objective: * Vitals: I nitials:krs, Wt:153 lb 2 oz, Ht:65, BMI:25.48, BP:122/76, HR:99, Oxygen sat %:96, Pain scale:3. Assessment: * Assessment: 1. N utritional counseling - Z71.3 (Primary) 2 . S chizoaffective disorder - F25.9 Plan: * Treatment: Value Reference Range I mmature Grans (Abs) 0.0 0.0-0.1 - x10E3/uL * I mmature Granulocytes 0 Not Estab. - % * B aso (Absolute) 0.0 0.0-0.2 - x10E3/uL * N eutrophils (Absolute) 2.0 1.4-7.0 - x10E3/uL * R BC 4.29 3.77-5.28 - x10E6/uL * M onocytes(Absolute) 0.4 0.1-0.9 - x10E3/uL * W BC 3.7 3.4-10.8 - x10E3/uL * E os (Absolute) 0.1 0.0-0.4 - x10E3/uL * H emoglobin 13.3 11.1-15.9 - g/dL * H ematocrit 41.4 34.0-46.6 - % * M CV 97 79-97 - fL * M CH 31.0 26.6-33.0 - pg * M CHC 32.1 31.5-35.7 - g/dL * R DW 12.8 11.7-15.4 - % * L ymphs (Absolute) 1.2 0.7-3.1 - x10E3/uL * B asos 0 Not Estab. - % * E os 2 Not Estab. - % * M onocytes 10 Not Estab. - % * L ymphs 34 Not Estab. - % * N eutrophils 54 Not Estab. - % * P latelets 228 150-450 - x10E3/uL * Shey Lora 2024 1 1:12:22 AM TURBINE ENGINEER >Specimen collected, patient tolerated well.This lab was reviewed by Regis Amezcua on 06/04/2024 at 16:08 PM TURBINE ENGINEER ?LAB: Valproic Acid (Depakote)(R),S* Value Reference Range V alproic Acid (Depakote)(R),S 38 L 50-100 - ug /mL * Shey Lora 2024 1 1:12:22 AM TURBINE ENGINEER >Specimen collected, patient tolerated well.This lab was reviewed by Regis Amezcua on 06/04/2024 at 16:07 PM TURBINE ENGINEER ?LAB: CMP 14 Comprehensive Metabolic Panel Value Reference Range C alcium, Serum 9.4 8.7-10.3 - mg/dL * A ST (SGOT) 19 0-40 - IU/L * A lkaline Phosphatase, S 66 44-121 - IU/L * B ilirubin, Total 0.3 0.0-1.2 - mg/dL * P rotein, Total, Serum 6.9 6.0-8.5 - g/dL * A lbumin, Serum 4.5 3.7-4.7 - g/dL * A LT (SGPT) 12 0-32 - IU/L * C arbon Dioxide, Total 23 20-29 - mmol/L * G lobulin, Total 2.4 1.5-4.5 - g/dL * C hloride, Serum 99 96-106 - mmol/L * P otassium, Serum 4.0 3.5-5.2 - mmol/L * S odium, Serum 137 134-144 - mmol/L * B UN/Creatinine Ratio 15 12-28 - * C reatinine, Serum 0.92 0.57-1.00 - mg/dL * B UN 14 8-27 - mg/dL * G lucose, Serum 95 70-99 - mg/dL * e GFR 63 >59 - mL/min/1.73 * Shey Lora 2024 1 1:12:22 AM TURBINE ENGINEER >Specimen collected, patient tolerated well.This lab was reviewed by Regis Amezcua on 06/04/2024 at 16:08 PM TURBINE ENGINEER Notes:risk & benefits discussed. Continue current treatment. Repeat depakote level, CBC, CMPDepakote level was 45 on 08/24/23, was 42.0 on 12/02/22, 40.6 was on 04/25/22 . Was 36 on 05/06/23. Has regular follow up with PCP. No involuntary movement reported.?? * Recommended Wellness and Pre vention Guidelines: * S sharon thorne L ast Done N ext Due A ction Taken N ONCOMPLIANT B reast cancer screening - 1 - N ONCOMPLIANT I nfluenza vaccine (over 50) - 1 - * Procedure Codes: 3 008F BODY MASS INDEX [id number] MEDICAL NUTRITION, INDIV, [id number] TOBACCO [id number] [facility] VISIT ESTABLISHED PATIENT * Preventive Medicine: Counseling: C are goal follow-up plan: B LA management provided Vicki Hope Normal BMI Follow-up L ifestyle education regarding diet. * Follow Up: 3 Months * * Sign off status: Completed true * Provider: Vicki Amezcua Date: 1 Generated for Jose forbes/Rosa Maria/eTransmjose m on: 0 09/11/2024 10:34 AM TURBINE ENGINEER History and Physical Notes * HPI (History [...] days Feeling tired or having little energy: S everal days Poor appetite or overeating: Several day s Feeling bad about yourself o r that [...] moving around a lot more than usual: Not at all Thoughts that you would be b wild off or of hurting yourself in some way: Not at all Constitutional Phone session today Pt reports doing alright. She tried to stop AM risperdal for 5 days but became more anxious. Now back on previous dose. Medicines are working alright. Her depakote level was 45 on 08/24/11. Reports mood has been alright. Appetite is good. Sleep is alright. Denies side effects . Reports taking medicines as prescribed. Denies SI/HI. Denies hallucination or delusion. Denies manic or hypo manic symptoms. Denies hopelessness. VPA level ---36 on 05/06/21, 42 on 05/27/20, 49 on 09/11/18, 33 on 05/03/17, 39 on 01/04/17 and 31, CBC & CMP unremarkable on 05/03/17 & on 09/11/18. Got Moderna covid-19 vaccine. Got Flu & Pneumonia vaccine . Had left knee replacement at [facility] in 04/2021. Took Stelazine in past for many years in . Was diagnosed with Schizoaffective disorder in past. Used to see Dr Doe at [facility], [place]. Her first psych admission in 1980. Also [place] [address] Wagner. Took Abilify,geodon in past. She showed me old Zoloft tablets [place] [address] Wagner. MSE--Alert,Ox3,mood pleasant. Affect is appropriate. Denies SI/HI. Denies manic or hypomanic sxs. Insight & judgement alright. Denies hopeless. Speech nl. Denies hallucination. Memory intact. Screening [place] Suicide Severity Rating Scale (LF) Do you [...] end your life?: No Interpretation:: Low Risk Do Not Use CSSRS Interpretation and Follow Up Plan CSSRS Interpretation and Follow Up Plan CSSRS Screen documented using SF: Yes Moderate or High risk requir es selection of a follow up plan: CSSRS No/Low: intervention not needed at this time Preventative Health and Wellness follow-up Action Plans for Clinical Quality Measures: Breast Cancer Screening:: Discussed need for breast cancer screening. Patient declined. .
--- OUTSIDE RECORDS SUMMARY | 2024-09-11 10:34 | XMS_ITS | Clinical Summary ---
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 Gender Identity Not on file Sexual Orientation Not on file Plan of Treatment Health Maintenance Due Date Last Done Comments DEXA Bone Density 1945 Hepatitis C Virus (HCV) Screening 1945 TdaP Immunization 1945 Pneumococcal Immunization (5 0+ years) (1 of 1 - PCV) 1993 Zoster Immunization (1 of 2) 1993 Respiratory Syncytial Virus (RSV) Immunization (Adult) (1 - 1-dose 75+ series) 2018 Influenza Immunization (#1) 2024 SARS-COV-2 Immunization (2 season) 2024 07/28/2021 Hepatitis B Immunization Aged Out No longer eligible based on patient's age to complete this topic Meningococcal Immunization (ACWY) Aged Out No longer eligible based on patient's age to complete this topic Rotavirus Immunization Aged Out No lo nger eligible based on patient's age to complete this topic
--- OUTSIDE RECORDS SUMMARY | 2024-09-11 10:34 | XMS_ITS ---
Author Organization [facility] Address [address] [place] [address] Care Team Providers Care Salon Manager Name Role Phone Regis Amezcua Primary Care Provider [facility] Unav ailable Unavailable Allergies Allergen (clinical drug ingredient) Drug/Non Drug Allergy documented on EMR Reaction Allergy Type Onset Date Status Monosodium glutamate MSG (uncoded) Unknown Allergy Active REASON FOR VISIT labs Medications Medication SIG (Take, Route, Frequency, Duration) Notes Start Date End Date Status Magnesium Oxide 250 MG 1 tablet as neede d Orally Once a day Not-Taking [place] 3 1000 MG 1 capsule Orally Onc e a day Active busPIRone HCl 5 MG 1 tablet Orally Twic e a day for 90 days Active risperiDONE 0.5 MG 1 tablet bedtime Ora lly twice a day for 90 days Active Calcium Carbonate-Vitamin D 500-200 MG-UNIT 1 tablet with food Orally Once a day Active Divalproex Sodium 250 MG 1 tablet Orally twice a day for 90 days Active Social History Sex Assigned At : Social History Observation Description Sex Assigned At Female Encounters Encounter Location Date Provider Diagnosis [address] [place] [address] 2024 Regis Amezcua Plan Of Treatment No Information Progress Notes * Joanie LONGOB:[birth year] (79 yo F)Acc No.[id number]:2024 UNLOCKED PROGRESS NOTE Patient: Joanie LLAMAS Provider: Vicki Amezcua :1945 A ge:79 Y S ex:Female Date:2024 Address:[facility] [address] [place], [id number] Check In:08:06 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 Labs. * Medical History: * Medications: T aking Calcium Carbonate-Vitamin D 500-200 MG-UNIT Tablet 1 tablet with food Orally Once a day , Taking [place] 3 1000 MG Capsule 1 capsule Orally [...] * Electronic signature of Regis Amezcua MD, [id number] on 09/11/2024 at 10:33 AM METAL FABRICATOR HELPER Sign off status: Pending * Provider: Vicki Amezcua Date: 1 07/27/2023 Generated for Jose forbes/Rosa Maria/Gopalitting on: 0 09/11/2024 10:33 AM METAL FABRICATOR HELPER
--- NOTE | 2024-09-11 11:00 | ECG_ITS ---
Test Date: 2024-09-11 12:01:04 Measurements Intervals Nelson Rate: 83 P: 40 GA: 168 QRS: 2 QRSD: 76 T: 28 QT: 365 QTc: 431 Interpretive Statements SINUS RHYTHM BASELINE ARTIFACT- I, II, III, AVR, AVL, AVF, V1-V6 NORMAL ECG No previous ECG available for comparison Electronically Signed On 09-11-2024 13:30:24 RETAIL GIFT CARD MERCHANDISING by Jason Maldonado D.O.
--- NOTE | 2024-09-11 11:41 | ED.AMS ---
HPI - Altered Mental Status General Chief Complaint: Altered Mental Status <Irma Fisher PA-C - Last Filed: 09/11/24 16:24> Stated Complaint: sent by Dr. Plunkett <Irma Fisher PA-C - Last Filed: 09/11/24 16:24> Time Seen by Provider: 09/11/24 11:00 <Irma Fisher PA-C - Last Filed: 09/11/24 16:24> Source: patient and family <Irma Fisher PA-C - Last Filed: 09/11/24 16:24> Mode of arrival: wheelchair <MACIEL Green Last Filed: 09/11/24 16:24> Limitations: other (poor historian) <Irma Fisher PA-C - Last Filed: 09/11/24 16:24> History of Present Illness HPI narrative: This is a 79 year old female that presents to the ER for a fall last night. Reports she slipped out of bed. She had difficulty getting up. Her is concerned that she seems unsteady on her feet and has had a shuffling gait. This has been ongoing for a while, but worsening over the last week. Patient has had a cough, congestion, runny nose the last week. Her also reports urinary frequency and incontinence. <Irma Fisher PA-C - Last Filed: 09/11/24 16:24> Related Data Home Medications: Home Medications ?Medication ?Instructions ?Recorded ?Confirmed ?Last Taken ?Type divalproex 250 mg tablet,delayed 250 mg PO Q12H 09/16/19 09/28/23 05/10/21 04:10 History release multivitamin with minerals 1 tablet PO DAILY 09/16/19 09/28/23 05/02/21 History (Multiple Vitamin-Minerals tablet) buspirone 5 mg tablet 2.5 mg PO QHS 08/28/23 09/28/23 Unknown History risperidone 0.5 mg tablet 0.5 mg PO DAILY 09/28/23 09/28/23 Unknown History (Risperdal) ciclopirox 0.77 % topical cream 1 applic topical Q12H 04/04/24 Unknown History <Irma Fisher PA-C - Last Filed: 09/11/24 16:24> Allergies/Adverse Reactions: Allergies Allergy/AdvReac Type Severity Reaction Status Date / Time Iodinated Contrast Media Allergy Unknown Hives Verified 04/04/24 09:33 iohexol (From contrast - CT, Allergy Unknown Hives Verified 04/04/24 09:33 X-RAY) <Irma Fisher PA-C - Last Filed: 09/11/24 16:24> Review of Systems Review of Systems: CONSTITUTIONAL: Denies fever ENT: Reports rhinorrhea, congestion, sore throat CARDIOVASCULAR: Denies chest pain RESPIRATORY: Reports cough. Denies dyspnea. GASTROINTESTINAL: Reports vomiting GENITOURINARY: Denies dysuria MUSCULOSKELETAL: Denies back pain, joint pain, or myalgia. NEUROLOGIC: Denies numbness, or weakness. <Irma Fisher PA-C - Last Filed: 09/11/24 16:24> All systems reviewed & are unremarkable except as noted in HPI and below <Irma Fisher PA-C - Last Filed: 09/11/24 16:24> [facility] Past Medical History Medical History: Medical History (Updated 09/11/24 @ 16:24 by Irma Fisher PA-C) Acute psychosis Bilateral cataracts Anxiety Dyslipidemia Mood disorder <Irma Fisher PA-C - Last Filed: 09/11/24 16:24> Surgical History Surgical History: Surgical History History of left knee replacement History of toe surgery wart removal-right foot 5th toe History of hysterectomy <Irma Fisher PA-C - Last Filed: 09/11/24 16:24> Family History Family History: Family History Mother Family history of Parkinson's disease Sibling Patient's sister is in good health Family history of throat cancer, Onset Age: 39 Patient's brother is Other Family history of malignant neoplasm of breast Family history of malignant neoplasm of breast in first degree relative <Irma Fisher PA-C - Last Filed: 09/11/24 16:24> Social History Social History: Social History (Updated 09/11/24 @ 15:15 by WILFREDO Rosenberg Social History: Surrogate medical decision maker: Antolin Hamilton, spouse ([phone]). Code status: Full code. Smoking status: Never smoker Second hand tobacco smoke exposure: No Alcohol intake: never Substance use: never Substance use type: does not use Lack of Transportation: No Lack of Food: Never True Current Housing: I Have Housing Concerned About Future Housing: No Difficulty Paying Gas/Electric Bills: No Difficulty Paying for Meds: No Currently Unemployed: No Education: Master's Degree or Higher Difficulty w/ Childcare or Family Care: No Living arrangements: with family Occupation/Education: retired Spiritual care concerns: No Agree to blood products: Yes <Irma Fisher PA-C - Last Filed: 09/11/24 16:24> Exam Narrative: GENERAL: Elderly, well-nourished, and in no acute distress. HEAD: Normocephalic, atraumatic. EYES: PERRLA and EOMI. ENT: Nares clear, no rhinorrhea or epistaxis. Mucous membranes moist. Oropharynx without tonsillar hypertrophy exudate or other lesions. Bilateral TMs pearly mcneill non-bulging NECK: Supple. No adenopathy or masses. CHEST: No respiratory distress. Lung sounds are coarse. No wheezes rales or rhonchi HEART: Regular rate and rhythm. No murmur heard. Normal peripheral pulses. ABDOMEN: Soft, nontender, nondistended, normal active bowel sounds. EXTREMITIES: Normal range of motion. No edema. Strength equal in bilateral upper and lower extremities (5/5) SKIN: Warm, dry, no rash. NEURO: No focal deficits. Alert and oriented x3. Cranial nerves 2-12 grossly intact. Normal [id number] PSYCH: Normal mood and affect <Irma Fisher PA-C - Last Filed: 09/11/24 16:24> Course Course Emergency Course: Patient and family updated on workup and recommendation for admission <Irma Fisher PA-C - Last Filed: 09/11/24 16:24> SAFETY INVESTIGATOR/PA Physician Supervision This visit was performed by both a physician and an APC. I performed all aspects of the MDM as documented. <Edil Luong MD - Last Filed: 09/11/24 19:18> Consultations Consultation #1: Spoke with hospitalist about patient and workup who accepts admission <Irma Fisher PA-C - Last Filed: 09/11/24 16:24> Date: 09/11/24 <Irma Fisher PA-C - Last Filed: 09/11/24 16:24> Vital Signs Vital signs: Vital Signs Temperature 98.6 F 09/11/24 10:26 Pulse Rate 89 09/11/24 10:26 Respiratory Rate 16 09/11/24 10:26 Blood Pressure 143/56 H 09/11/24 10:26 Pulse Oximetry 100 09/11/24 10:26 Oxygen Delivery Room Air 09/11/24 10:26 Temperature 99.7 F H 09/11/24 15:50 Pulse Rate 77 09/11/24 18:49 Respiratory Rate 26 H 09/11/24 18:49 Blood Pressure 155/83 H 09/11/24 18:49 Pulse Oximetry 96 09/11/24 18:49 Oxygen Delivery Room Air 09/11/24 12:13 <Irma Fisher PA-C - Last Filed: 09/11/24 16:24> Vital Signs Temperature 98.6 F 09/11/24 10:26 Pulse Rate 89 09/11/24 10:26 Respiratory Rate 16 09/11/24 10:26 Blood Pressure 143/56 H 09/11/24 10:26 Pulse Oximetry 100 09/11/24 10:26 Oxygen Delivery Room Air 09/11/24 10:26 Temperature 99.7 F H 09/11/24 15:50 Pulse Rate 77 09/11/24 18:49 Respiratory Rate 26 H 09/11/24 18:49 Blood Pressure 155/83 H 09/11/24 18:49 Pulse Oximetry 96 09/11/24 18:49 Oxygen Delivery Room Air 09/11/24 12:13 <Edil Luong MD - Last Filed: 09/11/24 19:18> MDM - Altered Mental Status MDM Narrative Medical decision making narrative: Patient presents the emergency department for generalized weakness, fall, cough, fatigue. Patient did develop a fever in the ER which was treated with Tylenol. Oxygen saturation is normal on room air. Other vitals are stable. CBC with white blood cell count of 3.8. Mild anemia noted with hemoglobin of 11.3. Metabolic panel with acute hyponatremia with sodium of 126. Urine without evidence of infection. Patient is influenza A positive. CT brain without acute findings. Chest x-ray shows atelectasis. Patient and family updated on workup and recommendation for admission. Spoke with hospitalist about patient and workup who accepts admission <Irma Fisher PA-C - Last Filed: 09/11/24 16:24> Differential Diagnosis Differential diagnosis: Likely altered mental status, delirium, dementia, hyponatremia and other (influenza, covid, pneumonia, dehydration, UTI) <Irma Fisher PA-C - Last Filed: 09/11/24 16:24> Lab Data Attestation: I reviewed the patient's lab results. <Irma Fisher PA-C - Last Filed: 09/11/24 16:24> Result diagrams: 09/11/24 11:37 09/11/24 18:35 <Irma Fisher PA-C - Last Filed: 09/11/24 16:24> Labs: Lab Results 09/11/24 09/11/24 09/11/24 Range/Units 11:37 11:41 11:55 WBC 3.8 L (4.5-10.0) K/mm3 RBC 3.70 L (4.2-5.4) M/mm3 Hgb 11.3 L (12.0-15.0) g/dL Hct 34.2 L (37.0-47.0) % MCV 92.4 (80-100) fl MCH 30.5 (26-34) pg MCHC 33.0 (32-36) g/dl RDW 13.5 (11.5-14.5) % Plt Count 152 (150-375) k/mm3 MPV 11.2 H (7.4-10.4) fl Immature Gran % (Auto) 0.5 (0-0.5) % Neut % (Auto) 68.6 (45.5-73.1) % Lymph % (Auto) 12.9 L (18.3-44.2) % [place] % (Auto) 17.7 H (2.6-8.5) % Eos % (Auto) 0.0 (0-4.4) % Baso % (Auto) 0.3 (0.2-1.2) % Lymph # (Auto) 0.49 L (0.9-3.2) K/mm3 [place] # (Auto) 0.7 H (0.1-0.6) K/mm3 Eos # (Auto) 0.0 (0-0.3) K/mm3 Baso # (Auto) 0.0 (0.0-0.1) K/mm3 Abs Immat Gran (auto) 0.02 (0.00-0.031) K/mm3 Absolute Neuts (auto) 2.6 (1.3-6.7) K/mm3 Absolute Nucleated RBC 0.000 (0.0-0.012) K/mm3 Nucleated RBC % 0.0 (0.0-0.2) % PT 12.8 (11.1-14.7) Seconds INR 0.9 APTT 35.6 (22.3-36.8) Seconds Sodium 126 L (137-145) mmol/L Potassium 4.2 (3.4-5.0) mmol/L Chloride 88 L (98-107) mmol/L Carbon Dioxide 26 (22-30) mmol/L Anion Gap 12 (4-12) mmol/L BUN 13 (7-17) mg/dL Creatinine 0.73 (0.7-1.0) mg/dL Estim Creat Clear Calc Not Reportable Estimated GFR > 60 (59 - ) Glucose 116 H (65-110) mg/dL Calcium 8.8 (8.4-10.2) mg/dL Magnesium 1.8 (1.6-2.3) mg/dL Total Bilirubin 0.4 (0.2-1.3) mg/dL AST 43 H (14-36) U/L ALT 20 (6-35) U/L Alkaline Phosphatase 54 (38-126) U/L Total Creatine Kinase 405 H (30-135) U/L Total Protein 7.0 (6.3-8.2) g/dL Albumin 4.1 (3.5-5.1) g/dL TSH (Reflex) 0.812 (0.465-4.68) uIU/mL Urine Color Yellow (Yellow) Urine Appearance Clear (Clear) Urine pH 6.5 (5.0-9.0) Ur Specific [place] 1.013 (1.001-1.035) Urine Protein Trace (Negative) mg/dL Urine Glucose (UA) Negative (Negative) mg/dL Urine Ketones 1+ H (Negative) mg/dL Ur Blood (Man) 1+ H (Negative) Urine Nitrate Negative (Negative) Urine Bilirubin Negative (Negative) Urine Urobilinogen 0.2 (<2.0) mg/dL Leukocyte Esterase Rfl Negative (Negative) MIYA/UL Urine RBC 11-20 H (0-2) /hpf Urine WBC 0-5 (0-3) /hpf Ur Squamous Epith Cells None seen (Few) /hpf Urine Bacteria None seen /hpf Urine Casts 0-2 Ur Random Sodium 42 meq/L Ur Random Urea 668 MG/DL Urine Creatinine 106.2 mg/dL Influenza A (RT-PCR) Positive A (Negative) Influenza B (RT-PCR) Negative (Negative) RSV (RT-PCR) Negative (Negative) SARS-CoV-2 RNA (RT-PCR) Negative (Negative) <Irma Fisher PA-C - Last Filed: 09/11/24 16:24> Lab Results 09/11/24 09/11/24 09/11/24 Range/Units 11:37 11:41 11:55 WBC 3.8 L (4.5-10.0) K/mm3 RBC 3.70 L (4.2-5.4) M/mm3 Hgb 11.3 L (12.0-15.0) g/dL Hct 34.2 L (37.0-47.0) % MCV 92.4 (80-100) fl MCH 30.5 (26-34) pg MCHC 33.0 (32-36) g/dl RDW 13.5 (11.5-14.5) % Plt Count 152 (150-375) k/mm3 MPV 11.2 H (7.4-10.4) fl Immature Gran % (Auto) 0.5 (0-0.5) % Neut % (Auto) 68.6 (45.5-73.1) % Lymph % (Auto) 12.9 L (18.3-44.2) % [place] % (Auto) 17.7 H (2.6-8.5) % Eos % (Auto) 0.0 (0-4.4) % Baso % (Auto) 0.3 (0.2-1.2) % Lymph # (Auto) 0.49 L (0.9-3.2) K/mm3 [place] # (Auto) 0.7 H (0.1-0.6) K/mm3 Eos # (Auto) 0.0 (0-0.3) K/mm3 Baso # (Auto) 0.0 (0.0-0.1) K/mm3 Abs Immat Gran (auto) 0.02 (0.00-0.031) K/mm3 Absolute Neuts (auto) 2.6 (1.3-6.7) K/mm3 Absolute Nucleated RBC 0.000 (0.0-0.012) K/mm3 Nucleated RBC % 0.0 (0.0-0.2) % PT 12.8 (11.1-14.7) Seconds INR 0.9 APTT 35.6 (22.3-36.8) Seconds Sodium 126 L (137-145) mmol/L Potassium 4.2 (3.4-5.0) mmol/L Chloride 88 L (98-107) mmol/L Carbon Dioxide 26 (22-30) mmol/L Anion Gap 12 (4-12) mmol/L BUN 13 (7-17) mg/dL Creatinine 0.73 (0.7-1.0) mg/dL Estim Creat Clear Calc Not Reportable Estimated GFR > 60 (59 - ) Glucose 116 H (65-110) mg/dL Calcium 8.8 (8.4-10.2) mg/dL Magnesium 1.8 (1.6-2.3) mg/dL Total Bilirubin 0.4 (0.2-1.3) mg/dL AST 43 H (14-36) U/L ALT 20 (6-35) U/L Alkaline Phosphatase 54 (38-126) U/L Total Creatine Kinase 405 H (30-135) U/L Total Protein 7.0 (6.3-8.2) g/dL Albumin 4.1 (3.5-5.1) g/dL TSH (Reflex) 0.812 (0.465-4.68) uIU/mL Urine Color Yellow (Yellow) Urine Appearance Clear (Clear) Urine pH 6.5 (5.0-9.0) Ur Specific [place] 1.013 (1.001-1.035) Urine Protein Trace (Negative) mg/dL Urine Glucose (UA) Negative (Negative) mg/dL Urine Ketones 1+ H (Negative) mg/dL Ur Blood (Man) 1+ H (Negative) Urine Nitrate Negative (Negative) Urine Bilirubin Negative (Negative) Urine Urobilinogen 0.2 (<2.0) mg/dL Leukocyte Esterase Rfl Negative (Negative) MIYA/UL Urine RBC 11-20 H (0-2) /hpf Urine WBC 0-5 (0-3) /hpf Ur Squamous Epith Cells None seen (Few) /hpf Urine Bacteria None seen /hpf Urine Casts 0-2 Ur Random Sodium 42 meq/L Ur Random Urea 668 MG/DL Urine Creatinine 106.2 mg/dL Influenza A (RT-PCR) Positive A (Negative) Influenza B (RT-PCR) Negative (Negative) RSV (RT-PCR) Negative (Negative) SARS-CoV-2 RNA (RT-PCR) Negative (Negative) <Edil Luong MD - Last Filed: 09/11/24 19:18> Imaging Data Radiologist's impression: ITS Impressions Head CT 09/11/24 11:20 Impression: No intracranial hemorrhage, mass, or acute infarct. Atrophy and chronic white matter changes, as above. Chest X-Ray 09/11/24 11:32 IMPRESSION: 1. Mild left basilar atelectasis. Pelvis X-Ray 09/11/24 11:33 Impression: 1: No acute fracture. <Irma Fisher PA-C - Last Filed: 09/11/24 16:24> ECG Data EKG #1: ECG completion date: 09/11/24 <Irma Fisher PA-C - Last Filed: 09/11/24 16:24> EKG Interpretation: normal rate, sinus rhythm, no ST changes and normal QT <Irma Fisher PA-C - Last Filed: 09/11/24 16:24> Critical Care Time Critical Care Time Critical Care Time: No <Irma Fisher PA-C - Last Filed: 09/11/24 16:24> Discharge Plan Discharge Clinical Impression: Acute hyponatremia, Influenza A <Irma Fisher PA-C - Last Filed: 09/11/24 16:24> Patient Disposition: Still a Patient <Irma Fisher PA-C - Last Filed: 09/11/24 16:24> Condition: Stable <Irma Fisher PA-C - Last Filed: 09/11/24 16:24>
--- OUTSIDE RECORDS SUMMARY | 2024-09-11 11:46 | XMS_ITS | Patient Health Summary ---
Author Organization [facility] Address [address] [place] [address] Care Team Providers Care College Associate Name Role Phone Cristine Plunkett MD Primary Care Provider [phone] Note from [facility],non-owned Affiliates and Associated Physician Practices is amultiple site organization consisting of ambulatory clinics and hospital sitesin [place], [place], [place] and [place]. This disclosure is being madepursuant to the Care Everywhere program and may not contain all information available regarding this patient. Last updated 18.[facility] DDN Allergies * Kdc:Yellow Dye+Cocaine+Sodium Benzoate(Unknown) * Monosodium [...] times daily * Fluticasone Propionate (FLONASE NA) [place] into the nose as needed * vitamin [...] Sexual Orientation Not on file Procedures * SC DESTRUCT BENIGN LESION, 1-14(Performed 02/03/2020) Performed for Seborrheic keratoses, inflamed * SC DESTRUCT BENIGN LESION, 1-14(Performed 10/10/2018) Performed for Seborrheic keratoses, inflamed * DERMATOPATHOLOGY(Performed 08/15/2012) * DERMATOPATHOLOGY(Performed 08/03/2012) * DERMATOPATHOLOGY(Performed 05/08/2012) * DERMATOPATHOLOGY(Performed 02/07/2011) * PATHOLOGY/GENETICS HISTORICAL-ONBASE(Performed 01/13/2011) Results * SC DESTRUCT BENIGN LESION, 1-14 (02/03/2020 12:10 PM [...] and post-cryotherapy handout given. Javier Galindo MD [facility] Dermatology Resident, PGY-2 Stephen Irving MD PROCEDURE/MINOR SURG ICAL ORDERABLES * DERMATOPATHOLOGY (08/15/2012 12:00 AM DIRECTOR OF COMMUNITY SERVICES) Only the most recent of4 resultswithin the time period is included. Result CASE: [id number] PATIENT: [facility] PATHOLOGIC DIAGNOSIS: Right pinky toe: VERRUCA VULGARIS CLINICAL DATA: [place] vs Wart. GROSS DESCRIPTION: Received is one formalin filled container labeled with the patient's name and designated right pinky toe. The specimen consists of a punch biopsy measuring [id number], bisected. Jar 0. MICROSCOPIC DESCRIPTION: There is digitated epidermal hyperplasia, hypergranulos is, vacuolated granular layer cells, and compact hyperorthoker atosis. The rete ridges are in-turning. Final Diagnosis performed by Marianne Butler M.D. Electronicall y signed 08/17/2012 12:37:57PM [facility] DERMATOLOGY [facility] Comment: Performed at: Dermatopathology Laboratory [facility] - Department of Dermatology [address] [place] [address], Room [address] [place] [address] Phone number: [phone] Toll Free: [phone] FAX: [phone] Skin (tissue) specimen (specimen) 08/15/2012 08/16/2012 Narrative [facility] DER[facility] - 08/17/2012 12:38 PM DIRECTOR OF COMMUNITY SERVICES Specimen A: Type->Punch Site->right pinky toe History->yellow papule Impression->corn vs wart Check Margins:->N/A Prior Biopsy->No Catherine Rodriguez MD LAB - PATHOLOGY/ CYTOLOGY ORDERABLES Performing Organization Address [facility] Co de Phone Number [facility] [address] [place] [address]. 5th Floor Lab [address] [phone] * PATHOLOGY/GENETICS HISTORICAL-ONBASE (01/13/2011) 01/13/2011 Historical Provider LAB - CHEMISTRY O RDERABLES [facility] Care Teams College Associate Relationship Specialty Start Date End Date Cristine Plunkett MD [address] [place] [address] PCP - General 02/15/21
--- OUTSIDE RECORDS SUMMARY | 2024-09-11 11:46 | XMS_ITS | Clinical Summary ---
Author Organization [facility] Address [address] [place] [address] Care Team Providers Care Referral Nurse Name Role Phone Cristine Plunkett MD Primary Care Provider [phone] Source Comments [facility] Affiliates and Associated Physician Practices is amultiple site organization consisting of ambulatory clinics and hospital sitesin [place], [place], [place] and [place]. This disclosure is being madepursuant to the Care Everywhere program and may not contain all information available regarding this patient. Last updated 18.[facility] Allergies Active Allergy Reactions Criticality Noted Date [...] times daily Active Fluticasone Propionate (FLONASE NA) [place] into the nose as needed Active vitamin [...] topic MENINGOCOCCAL VACCINE Aged Out No venkatesh rudy eligible based on patient's age to complete this topic Care Teams Referral Nurse Relationship Specialty Start Date End Date Cristine Plunkett MD [address] [place] [address] PCP - General 02/15/21
--- OUTSIDE RECORDS SUMMARY | 2024-09-11 11:46 | XMS_ITS | Clinical Summary ---
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
--- OUTSIDE RECORDS SUMMARY | 2024-09-11 11:46 | XMS_ITS | Patient Health Record ---
Author Organization Formerly [facility], later [facility] Address [address] [place] [address] Care Team Providers Care Visual Education Director Name Role Phone MohsenRegis freitas Primary Care Provider [phone] [facility] Unav ailable Unavailable Allergies Allergen (clinical drug ingredient) Drug/Non Drug Allergy documented on EMR Reaction Allergy Type Onset Date Status Monosodium glutamate MSG (uncoded) Unknown Allergy Active Results Component Value Reference Range Notes CBC With Differential/Platel et* Reviewed date:06/04/2024 04:08:17 PM Interpretation: Performing Lab:[facility] [place], [address], [place], Phone - [phone], Director - Hilario Notes/Report: WBC 3.7 3.4-10.8 [...] S Reviewed date:06/04/2024 04:07:13 PM Interpretation: Performing [facility] [address] [facility], Phone - [phone], Director - [facility] Notes/Report: Valproic Acid (Depakote)(R),S 38 50-100 ug/m L Detection Limit = 4 <4 indicates None Detected . Toxicity may occur at levels of 100-500. Measurements of free unbound valproic acid may improve the assess- ment of clinical response. CMP 14 Comprehensive Metabol ic Panel* Reviewed date:06/04/2024 04:08:32 PM Interpretation: Performing Lab:[facility] [place], [address] [facility], Phone - [phone], Director - [facility] Notes/Report: Glucose 95 70-99 mg/dL BUN [...] 0-40 IU/L ALT (SGPT) 12 0-32 IU/L Reason For Referral No Information Medications Medication SIG (Take, Route, Frequency, Duration) [...] neede d Orally Once a day Not-Taking [place] 3 1000 MG 1 capsule Orally Onc e a day Active Social History Tobacco Use: Social History Observation Description Date Details (start date - stop date) Never Smoker NA - NA Sex Assigned At : Social History Observation Description Sex Assigned At Female Dont use, Tobacco Use/Smoking Question Answer Notes Are you a nonsmoker Tobacco Control (Standard) Question Answer Notes Tobacco use: Nonsmoker Problems Problem Type SNOMED Code ICD Code Onset Dates Problem Status W/U Status Risk Notes Problem Schizoaffective disorder (79668312) Schizoaffective disorder (F25.9) Active confirmed Vital Signs Heart Rate 77 /min 08/13/2024 Respiratory Rate 16 /min 08/13/2024 Oximetry 97 % 08/13/2024 Blood pressure diastolic 60 mm Hg 08/13/2024 Height 65 in 08/13/2024 Blood pressure systolic 128 mm Hg 08/13/2024 Weight 156.0 lbs 08/13/2024 BMI 25.96 kg/m2 08/13/2024 Encounters Encounter Location Date Provider Diagnosis [address] [place] [address] 09/22/2023 Arif Habib [address] [place] [address] 11/14/2023 Arif Habib Schizoaffective diso rder F25.[address] [place] [address] 05/21/2024 Arif Habib Nutritional counseli ng Z71.3 and Schizoaffective disorder F25.[address] [place] [address] 08/13/2024 Arif Habib Nutritional counseli ng Z71.3 and Schizoaffective disorder F25.[address] [place] [address] 2024 [facility] [address] [place] [address] [facility]izoaffective diso rder F25.9 Assessments Encounter Date Diagnosis (ICD Code) Assessment Notes Treatment Notes Treatment Clinical Notes Section Notes 11/14/2023 Schizoaffective disorder (ICD-10 - F25.9) risk & benefits discussed. Continue current treatment. Depakote level was 45 on 08/24/23, was 42.0 on 12/02/22, 40.6 was on 04/25/22 . Was 36 on 05/06/21. Her CBC & CMP were unremarkable . Has regular follow up with PCP. No involuntary movement noticed. Risperdal was lowered 3 months ago to 0.5 mg HS due to low energy, slow movements but now she wants it to be increased again twice a day because she thinks she was more active with twice a day dose. 02/20/2024 Schizoaffective disorder (ICD-10 - F25.9) risk & benefits discussed. Continue current treatment. Depakote level was 45 on 08/24/23, was 42.0 on 12/02/22, 40.6 was on 04/25/22 . Was 36 on 05/06/21. Her CBC & CMP were unremarkable . Has regular follow up with PCP. No involuntary movement reported. 05/21/2024 Nutritional counseling (ICD-10 - Z71.3) 08/13/2024 Nutritional counseling (ICD-10 - Z71.3) 08/13/2024 Schizoaffective disorder (ICD-10 - F25.9) risk & benefits discussed. Lower Risperdal 0.25 mg HS due to gait issues. Continue other treatment with depakote, Buspar. Depakote level was 38 on 05/27/24. 45 on 08/24/23, was 42.0 on 12/02/22, 40.6 was on 04/25/22 . Was 36 on 05/06/23. Has regular follow up with PCP. No involuntary movement reported. 05/21/2024 Schizoaffective disorder (ICD-10 - F25.9) risk & benefits discussed. Continue current treatment. Repeat depakote level, CBC, CMPDepakote level was 45 on 08/24/23, was 42.0 on 12/02/22, 40.6 was on 04/25/22 . Was 36 on 05/06/23. Has regular follow up with PCP. No involuntary movement reported. Plan Of Treatment Pending Test Test Name Order Date CBC With Differential/Platelet* 09/24/19 17 Valproic Acid (Depakote)(R),S 09/23/2016 CMP13 09/23/2016 Insurance Providers Payer Name Payer Address Payer Phone Subscriber Number Group Number Insured Name Patient Relationship to Insured Coverage Start Date Coverage End Date [employer] Medicare [address] [address] [place] [address] [phone] [id number] Joanie Hyde Self - patient is the insured 9 0 [employer] A[employer] Medicare [address] [address] [place] [address] [id number] Joanie Hyde Self - patient is the insured 3 MEDICARE PART A [address] [place] [address] [id number] Joanie Hyde Self - patient is the insured 8 8 MEDICAID [address] [facility] [address] [id number] Joanie Hyde Self - patient is the insured 7 7 AARP Medicare Complete [address] [address] [place] [address] [id number] Joanie Hyde Self - patient is the insured 2 2 Medical (General) History Surgical History Surgery Date(Month/Year) Hospitalization History Reason Date(Month/Year) Left knee surg at [facility] 05/10/20 21
--- OUTSIDE RECORDS SUMMARY | 2024-09-11 11:46 | XMS_ITS | Referral Summary ---
Author Organization [facility] Address [address] [place] [address] Care Team Providers Care Confectionery Cooker Name Role Phone Cristine Plunkett MD Primary Care Provider [phone] Source Comments [facility],non-[facility] Affiliates and Associated Physician Practices is amultiple site organization consisting of ambulatory clinics and hospital sitesin [place], [place], [place] and [place]. This disclosure is being madepursuant to the Care Everywhere program and may not contain all information available regarding this patient. Last updated 18.[facility] Allergies Active Allergy Reactions Criticality Noted Date [...] times daily Active Fluticasone Propionate (FLONASE NA) Paicines into the nose as needed Active vitamin [...] of Treatment Not on file Care Teams Confectionery Cooker Relationship Specialty Start Date End Date Cristine Plunkett MD [address] [place] [address] PCP - General 02/15/21
[2024-09-11 11:47] LABS: Basophils Percent Auto 0.3 % (0.2-1.2); Hematocrit 34.2 % (37.0-47.0); Hemoglobin 11.3 g/dL (12.0-15.0); Immature Granulocyte Absolute 0.02 K/mm3 (0.00-0.031); Immature Granulocyte Percent A 0.5 % (0-0.5); Lymphocytes Absolute Auto 0.49 K/mm3 (0.9-3.2); Lymphocytes Percent Auto 12.9 % (18.3-44.2); Mean Corpuscular Hemoglobin 30.5 pg (26-34); Mean Corpuscular Volume 92.4 fl (80-100); Mean Platelet Volume 11.2 fl (7.4-10.4); Monocytes Absolute Auto 0.7 K/mm3 (0.1-0.6); Monocytes Percent Auto 17.7 % (2.6-8.5); Neutrophils Absolute Auto 2.6 K/mm3 (1.3-6.7); Neutrophils Percent Auto 68.6 % (45.5-73.1); Platelet Count Result 152 k/mm3 (150-375); Red Cell Distribution Width 13.5 % (11.5-14.5); White Blood Count 3.8 K/mm3 (4.5-10.0)
[2024-09-11 11:57] LABS: Alanine Aminotransferase 20 U/L (6-35); Albumin Level 4.1 g/dL (3.5-5.1); Alkaline Phosphatase 54 U/L (38-126); Anion Gap 12 mmol/L (4-12); Aspartate Amino Transferase 43 U/L (14-36); Bilirubin,Total 0.4 mg/dL (0.2-1.3); Blood Urea Nitrogen 13 mg/dL (7-17); Calcium 8.8 mg/dL (8.4-10.2); Carbon Dioxide 26 mmol/L (22-30); Chloride 88 mmol/L (98-107); Estimated Glomerular Filt Rate > 60; Glucose 116 mg/dL (65-110); Potassium 4.2 mmol/L (3.4-5.0); Sodium 126 mmol/L (137-145)
[2024-09-11 12:08] LABS: INR 0.9; Prothrombin Time 12.8 Seconds (11.1-14.7)
[2024-09-11 12:09] LABS: Partial Thromboplastin Time 35.6 Seconds (22.3-36.8)
[2024-09-11 12:10] LABS: Add Urine Microscopic? YES; Appearance Urine Clear (Clear); Bacteria Urine None Seen /hpf; Bilirubin Urine Negative (Negative); Blood Urine 1+ (Negative); Color Urine Yellow (Yellow); Glucose Urine UA Negative (Negative); Ketones Urine 1+ mg/dL (Negative); Leukocyte Esterase Ur Negative LEU/UL (Negative); Nitrate Urine Negative (Negative); Non Pathogenic Casts 0-2; Protein Urine Trace mg/dL (Negative); Specific Grav Ur 1.013 (1.001-1.035); Squamous Epithelial Cell Urine None Seen /hpf (Few); Urobilinogen Urine 0.2 mg/dL (<2.0); WBC Urine 0-5 /hpf (0-3); pH Urine 6.5 (5.0-9.0)
[2024-09-11 12:24] LABS: Creatine Kinase 405 U/L (30-135)
[2024-09-11 12:24] LABS: Influenza A QL RT-PCR Positive (Negative); Influenza B QL RT-PCR Negative (Negative); RSV RNA, RT-PCR Negative (Negative); SARS-CoV-2 RNA PCR Negative (Negative)
[2024-09-11] MEDS: SODIUM CHLORIDE 0.9% IV 500 ML 999 ML IV CONT (12:38)
[2024-09-11] MEDS: ACETAMINOPHEN 500 MG TABLET 1000 MG PO (14:56)
--- NOTE | 2024-09-11 14:56 | P.HP_ITS ---
H&P: HPI History of Present Illness Date/Time: 09/11/24 15:00 Chief Complaint: Fall last night. Narrative: This is an 79-year-old female with history of mood disorder and anxiety presented to the emergency department via private vehicle accompanied by her for evaluation after a fall last night. The patient and her provides the following history. She has not been feeling well for about a week o r more with symptoms to include a wet but nonproductive cough, congestion, runny nose, and generalized malaise. has also noticed that she seems to be getting up to urinate more frequently and has had increasing episodes of urinary incontinence. Over the last week or so she has been unsteady on her feet and has had a couple of falls although luckily she has not sustained any injuries. She h as been eating and drinking as per usual. She also denies fever, chills, sweats, chest pain, pleuritic pain, shortness of breath, focal weakness, paresthesias, facial droop, nausea, vomiting, diarrhea, and dysuria. Last night she slipped out of bed and was unable to get herself up and he brought her in today for evaluation. In the ED: Temperature was as high as 100.1? F. Blood pressures have been in the 140 systolic. Labs were significant for WBC count of 3.8, hemoglobin 11.3, sodium 126, chloride 88, glucose 116, AST 43, total CK 405. Urinalysis was positive for 1+ ketones, 1+ blood, and 11 to 20 RBC. She tested positive for influenza A. Brain CT was without acute findings. Chest x-ray showed mild left basilar atelectasis. Pelvis CT showed no evidence of acute fracture. She was given normal saline 500 mL and acetaminophen 1000 mg and she is being admitted in this setting for further treatment and evaluation. Review of Systems Review of Systems: 12 systems were reviewed and are negativ e except for as per HPI. [facility] Past Medical History Medical History Acute psychosis Bilateral cataracts Anxiety Dyslipidemia Mood disorder Surgical History Surgical History History of left knee replacement History of toe surgery wart removal-right foot 5th toe History of hysterectomy Family History Family History Mother Family history of Parkinson's disease Sibling Patient's sister is in good health Family history of throat cancer, Onset Age: 39 Patient's brother is Other Family history of malignant neoplasm of breast Family history of malignant neoplasm of breast in first degree relative Social History Social History Social History: Surrogate medical decision maker: Antolin Hamilton, spouse ([phone]). Code status: Full code. Smoking status: Never smoker Second hand tobacco smoke exposure: No Alcohol intake: never Substance use: never Substance use type: does not use Do You Feel Safe in your Home?: Yes Lack of Transportation: No Lack of Food: Never True Current Housing: I Have Housing Concerned About Future Housing: No Difficulty Paying Gas/Electric Bills: No Difficulty Paying for Meds: No Currently Unemployed: No Education: Master's Degree or Higher Difficulty w/ Childcare or Family Care: No Living arrangements: with family Occupation/Education: retired Spiritual care concerns: No Agree to blood products: Yes Meds Home Medications and Allergies Home Medications ?Medication ?Instructions ?Recorded ?Confirmed ?Type divalproex 250 mg tablet,delayed 250 mg PO Q12H 09/16/19 09/11/24 History release multivitamin with minerals 1 tablet PO DAILY 09/16/19 09/11/24 History (Multiple Vitamin-Minerals tablet) buspirone 5 mg tablet 2.5 mg PO BID 08/28/23 09/11/24 History risperidone 0.5 mg tablet 0.5 mg PO HS 09/28/23 09/11/24 History (Risperdal) divalproex 250 mg tablet,delayed 250 mg PO Q12H 09/11/24 09/11/24 History release omega 6-ooi-vyf-fish oil 1,000 mg 1 cap PO DAILY 09/11/24 09/11/24 History (120 mg-180 mg) capsule (Fish Oil) Allergies Allergy/AdvReac Type Severity Reaction Status Date / Time Iodinated Contrast Media Allergy Unknown Hives Verified 04/04/24 09:33 iohexol (From contrast - CT, Allergy Unknown Hives Verified 04/04/24 09:33 X-RAY) Vital Signs Vital Signs - 24 hr 09/11/24 10:26 09/11/24 12:11 09/11/24 12:13 Temperature 98.6 F Pulse Rate 89 83 Respiratory Rate 16 Blood Pressure 143/56 H Pulse Oximetry 100 Oxygen Delivery Room Air Room Air 09/11/24 12:16 09/11/24 13:33 09/11/24 14:33 Temperature 100.1 F H Pulse Rate 82 83 87 Respiratory Rate 33 H 30 H 22 H Blood Pressure 149/57 H 142/60 H Pulse Oximetry 95 97 98 Oxygen Delivery Exam Narrative: General: Mildly ill-appearing female sitting up in bed in no acute distress. Weight: 72.1 kg. BMI: 29.1. HEENT: Normocephalic, atraumatic. PERRL, EOMI. Sclera anicteric. Moist mucous membranes. Neck: Supple. Respiratory: Respirations are nonlabored lung sounds are clear to auscultation. Occasional cough. Cardiovascular: Regular rate and rhythm with S1-S2. Gastrointestinal: Abdomen is soft and nontender with positive bowel sounds. Bladder feels a bit distended. Skin: Warm and dry. Generalized pallor. Extremities: No cyanosis, clubbing, or edema. Radial and pedal pulses intact. Neurological: Alert. Cranial nerves 2-12 are grossly intact. No gross focal deficits to casual conversation. Psychiatric: Pleasant and cooperative with normal mood and affect. H&P: Results Labs Labs: Short CBC 09/11/24 Range/Units 11:37 WBC 3.8 L (4.5-10.0) K/mm3 Hgb 11.3 L (12.0-15.0) g/dL Hct 34.2 L (37.0-47.0) % Plt Count 152 (150-375) k/mm3 [facility] 09/11/24 11:37 Sodium 126 L Potassium 4.2 Chloride 88 L Carbon Dioxide 26 BUN 13 Creatinine 0.73 Glucose 116 H Calcium 8.8 Cardiac Enzymes 09/11/24 Range/Units 11:37 Total Creatine Kinase 405 H (30-135) U/L Liver Function 09/11/24 Range/Units 11:37 Total Bilirubin 0.4 (0.2-1.3) mg/dL AST 43 H (14-36) U/L ALT 20 (6-35) U/L Alkaline Phosphatase 54 (38-126) U/L Albumin 4.1 (3.5-5.1) g/dL Urine 09/11/24 Range/Units 11:55 Urine Color Yellow (Yellow) Urine Appearance Clear (Clear) Urine pH 6.5 (5.0-9.0) Ur Specific [place] 1.013 (1.001-1.035) Urine Protein Trace (Negative) mg/dL Urine Glucose (UA) Negative (Negative) mg/dL Imaging Head CT 09/11/24 11:20 Impression: 1. No intracranial hemorrhage, mass, or acute infarct. 2. Atrophy and chronic white matter changes, as above. Chest X-Ray 09/11/24 11:32 IMPRESSION: 1. Mild left basilar atelectasis. Pelvis X-Ray 09/11/24 11:33 Impression: 1: No acute fracture. Assessment and Plan Assessment and plan (1) Influenza A: Code(s): J10.1 - Influenza due to other identified influenza virus with other respiratory manifestations Status: Acute (2) Hyponatremia: Code(s): E87.1 - Hypo-osmolality and hyponatremia Status: Acute (3) Fall from bed: Code(s): W06.XXXA - Fall from bed, initial encounter Status: Acute (4) Elevated creatine kinase level: Code(s): R74.8 - Abnormal levels of other serum enzymes Status: Acute (5) Anxiety: Code(s): F41.9 - Anxiety disorder, unspecified Status: Acute (6) Mood disorder: Code(s): F39 - Unspecified mood [affective] disorder Status: Acute Plan The patient presented to the emergency department for evaluation after a fall last night as detailed in HPI. She has had URI symptoms for about a week and has been having balance issues as well. Labs, imaging, EKG, and all reports were personally reviewed. She tested positive for influenza A and has been started on oseltamivir. Her sodium was 126 which is likely causing weakness leading to falls. Is unclear why her sodium has dropped and she appears euvolemic on exam. She was given sodium chloride 500 mL was given in the ED and a repeat sodium is pending as well as urine and serum osmolalities and urine sodium and creatinine. Total CK is a bit elevated but not 5 times the upper limit of normal. Initiate fall precautions. She will need PT/OT evaluation when she is feeling better. Her home medications will be reviewed and resumed as appropriate. Findings and treatment plan were discussed with the patient. Questions were solicited and answered to satisfaction. The patient's medical management will be taken over by the hospitalist team in a.m. Quality VTE Prophylaxis VTE prophylaxis: mechanical ordered If No VTE Prophylaxis Answer both mechanical and pharmacologic: Reason no pharmacologic proph: medical contraindication (fall risk) The patient has been admitted under observation status. Hospitalist MIPS Advance Care Plan I have confirmed that the patient's Advanced Care Plan is present, code status is documented, or surrogate decision maker is listed in patient medical record.: Yes Medication Reconciliation I have utilized all available resources to obtain, update and review the patients current medications (includes all prescriptions, OTC, herbals, cannab is, and nutritional supplements).: Yes
[2024-09-11] MEDS: OSELTAMIVIR PHOSPHATE 75 MG CAPSULE PO (15:55)
[2024-09-11 18:04] LABS: Magnesium 1.8 mg/dL (1.6-2.3)
[2024-09-11 18:10] LABS: Creatinine Urine 106.2 mg/dL
[2024-09-11 18:13] LABS: Urea Random Urine 668 MG/DL
[2024-09-11 18:18] LABS: Sodium Urine Random 42 meq/L
[2024-09-11 18:35] LABS: Thyroid Stimulating Hormone Reflex 0.812 uIU/mL (0.465-4.68)
[2024-09-11 18:55] LABS: Creatine Kinase 427 U/L (30-135); Sodium 124 mmol/L (137-145)
--- NOTE | 2024-09-11 20:26 | ADMGEN ---
This patient, Joanie Hyde, was admitted to [facility] Surg Room 316-02. Patient/family oriented to hospital policies and general routines including ID bracelet, bed and alarms, visiting hours, pain management, procedures, bathroom and other care routines, personal items, smoking policy, room service/diet, and visiting hours. Information on how to activate the Rapid Response Team has been discussed. Patient/Family are encouraged to report perceived risks to care and to ask questions if they do not understand what they are told or what they should do.
--- NOTE | 2024-09-11 20:54 | PC.NURSE ---
Patient to be taken to floor when finished toileting.
[2024-09-11] MEDS: OSELTAMIVIR PHOSPHATE 30 MG CAPSULE PO (21:39)
[2024-09-11] MEDS: DIVALPROEX SODIUM DR 250 MG TABEC PO (22:59)
[2024-09-11] MEDS: ONDANSETRON INJ 4 MG/2 ML VIAL IV PUSH (23:23)
[2024-09-12] VITALS (12 sets, daily range): BP systolic 127–164; BP diastolic 39–75; PULSE 80–121; RESP 14–20; TEMP 37.1–37.7; O2SAT 92–95
[2024-09-12 00:23] LABS: Sodium 122 mmol/L (137-145)
[2024-09-12] MEDS: guaiFENesin/DEXTROMETHORPHAN 10 ML UDC PO ×3 (00:34→20:56)
[2024-09-12 00:43] LABS: Valproic Acid 31.4 ug/mL (50-120)
[2024-09-12 03:59] LABS: Hematocrit 29.6 % (37.0-47.0); Mean Corpuscular HGB Conc 33.8 g/dl (32-36); Mean Corpuscular Hemoglobin 30.5 pg (26-34); Mean Corpuscular Volume 90.2 fl (80-100); Mean Platelet Volume 10.9 fl (7.4-10.4); Platelet Count Result 143 k/mm3 (150-375); Red Blood Count 3.28 M/mm3 (4.2-5.4); Red Cell Distribution Width 13.7 % (11.5-14.5); White Blood Count 3.7 K/mm3 (4.5-10.0)
[2024-09-12 04:05] LABS: Sodium 126 mmol/L (137-145)
[2024-09-12 04:10] LABS: Alanine Aminotransferase 18 U/L (6-35); Albumin Level 3.4 g/dL (3.5-5.1); Alkaline Phosphatase 46 U/L (38-126); Anion Gap 7 mmol/L (4-12); Aspartate Amino Transferase 39 U/L (14-36); Bilirubin,Total 0.4 mg/dL (0.2-1.3); Blood Urea Nitrogen 13 mg/dL (7-17); Calcium 8.4 mg/dL (8.4-10.2); Carbon Dioxide 27 mmol/L (22-30); Chloride 92 mmol/L (98-107); Creatine Kinase 411 U/L (30-135); Estimated CRCL calculation 49 ml/min; Estimated Glomerular Filt Rate > 60; Glucose 111 mg/dL (65-110); Magnesium 1.8 mg/dL (1.6-2.3); Potassium 3.9 mmol/L (3.4-5.0); Sodium 126 mmol/L (137-145)
[2024-09-12] MEDS: SODIUM CHLORIDE 0.9% IV 1,000 ML 70 ML IV CONT ×2 (07:22→21:45)
--- NOTE | 2024-09-12 08:23 | P.PNIM_ITS ---
Progress Note: A&P Assessment and Plan (1) Influenza A: Code(s): J10.1 - Influenza due to other identified influenza virus with other respiratory manifestations Status: Acute Assessment and Plan: started on oseltamivir (2) Hyponatremia: Code(s): E87.1 - Hypo-osmolality and hyponatremia Status: Acute Assessment and Plan: 1000 mL was given in the ED and a repeat sodium is pending as well as urine and serum osmolalities and urine sodium and creatinine. IVF 20 mg of Lasix x1 (3) Fall from bed: Code(s): W06.XXXA - Fall from bed, initial encounter Status: Acute Assessment and Plan: Initiate fall precautions. 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 Patient blankly staring, not interactive flat affect, states that patient has not doing ADLs to her activities daily living will past few days. He states that she was incontinent of urine, and continue to sleep in a wet spot. Patient given normal saline without improvement and sodium, given Lasix without improvement sodium, nephrology consulted Review of Systems Review of Systems: 12 systems were reviewed and are negativ e except for as per HPI. Exam Narrative: General: Mildly ill-appearing female sitting up in bed in no acute distress. Weight: 72.1 kg. BMI: 29.1. HEENT: Normocephalic, atraumatic. PERRL, EOMI. Sclera anicteric. Moist mucous membranes. Neck: Supple. Respiratory: Respirations are nonlabored lung sounds are clear to auscultation. Occasional cough. Cardiovascular: Regular rate and rhythm with S1-S2. Gastrointestinal: Abdomen is soft and nontender with positive bowel sounds. Bladder feels a bit distended. Skin: Warm and dry. Generalized pallor. Extremities: No cyanosis, clubbing, or edema. Radial and pedal pulses intact. Neurological: Alert. Cranial nerves 2-12 are grossly intact. No gross focal deficits to casual conversation. Psychiatric: Extremely flat affect Objective Data Vital Signs Vital Signs: Vital Signs - 24 hr 09/11/24 10:26 09/11/24 12:11 09/11/24 12:13 Temperature 98.6 F Pulse Rate 89 83 Respiratory Rate 16 Blood Pressure 143/56 H Pulse Oximetry 100 Oxygen Delivery Room Air Room Air 09/11/24 12:16 09/11/24 13:33 09/11/24 14:33 Temperature 100.1 F H Pulse Rate 82 83 87 Respiratory Rate 33 H 30 H 22 H Blood Pressure 149/57 H 142/60 H Pulse Oximetry 95 97 98 Oxygen Delivery 09/11/24 15:50 09/11/24 18:49 09/11/24 21:08 Temperature 99.7 F H 98.5 F Pulse Rate 78 77 82 Respiratory Rate 26 H 26 H 16 Blood Pressure 129/64 155/83 H 148/54 H Pulse Oximetry 94 96 98 Oxygen Delivery 09/12/24 00:02 09/12/24 04:00 09/12/24 05:00 Temperature 99.5 F Pulse Rate 84 80 84 Respiratory Rate 14 Blood Pressure 127/39 L Pulse Oximetry 92 Oxygen Delivery Intake/Output Intake/Output: Intake & Output 09/09/24 09/10/24 09/11/24 09/12/24 23:59 23:59 23:59 23:59 Intake Total 500 550 Output Total 800 Balance 500 -250 Meds/Results Medications: Active Medications Generic Name Dose Route Start Last Admin Trade Name Freq PRN Reason Stop Dose Admin Acetaminophen 650 mg 09/11/24 22:07 Acetaminophen 325 Mg Tablet PO Q6H PRN Mild Pain (1-3) or Fever Buspirone HCl 2.5 mg 09/12/24 09:00 Buspirone Hcl 2.5 Mg Tablet PO BID [facility] Divalproex Sodium 250 mg 09/11/24 21:00 09/11/24 22:[address] 250 Mg Tabec PO 250 mg Q12H NEHA Administration Fish Oil 1 gm 09/12/24 09:00 [place] 3 Polyunsat Fatty Acids 1 Gm Cap PO DAILY ENHA Sodium Chloride 1,000 mls @ 70 mls/hr 09/12/24 04:10 09/12/24 07:22 Normal Saline Iv IV CONT 70 mls/hr .[id number] NEHA Administration Multivitamins/Calcium 1 tablet 09/12/24 09:00 Therapeutic Multivitamins/Minerals Tab (*Bkc) PO DAILY NEHA Ondansetron HCl 4 mg 09/11/24 23:14 09/11/24 23:23 Ondansetron Inj 4 Mg/2 Ml Vial IV PUSH 4 mg Q4H PRN Administration Nausea And Vomiting Oseltamivir Phosphate 30 mg 09/11/24 21:00 09/11/24 21:39 Oseltamivir Phosphate 30 Mg Capsule PO 09/16/24 20:59 30 mg Q12HR NEHA Administration Risperidone 0.5 mg 09/12/24 21:00 Risperidone 0.5 Mg Tablet PO HS [facility] Radiology Results: ITS Impressions Head CT 09/11/24 11:20 Impression: No intracranial hemorrhage, mass, or acute infarct. Atrophy and chronic white matter changes, as above. Chest X-Ray 09/11/24 11:32 IMPRESSION: 1. Mild left basilar atelectasis. Pelvis X-Ray 09/11/24 11:33 Impression: 1: No acute fracture. Labs Labs: Laboratory Results - last 24 hr 09/11/24 09/11/24 09/11/24 11:37 11:41 11:55 WBC 3.8 L RBC 3.70 L Hgb 11.3 L Hct 34.2 L MCV 92.4 MCH 30.5 MCHC 33.0 RDW 13.5 Plt Count 152 MPV 11.2 H Immature Gran % (Auto) 0.5 Neut % (Auto) 68.6 Lymph % (Auto) 12.9 L Lucas % (Auto) 17.7 H Eos % (Auto) 0.0 Baso % (Auto) 0.3 Lymph # (Auto) 0.49 L Lucas # (Auto) 0.7 H Eos # (Auto) 0.0 Baso # (Auto) 0.0 Abs Immat Gran (auto) 0.02 Absolute Neuts (auto) 2.6 Absolute Nucleated RBC 0.000 Nucleated RBC % 0.0 PT 12.8 INR 0.9 APTT 35.6 Sodium 126 L Potassium 4.2 Chloride 88 L Carbon Dioxide 26 Anion Gap 12 BUN 13 Creatinine 0.73 Estim Creat Clear Calc Not Reportable Estimated GFR > 60 Glucose 116 H Calcium 8.8 Magnesium 1.8 Total Bilirubin 0.4 AST 43 H ALT 20 Alkaline Phosphatase 54 Total Creatine Kinase 405 H Total Protein 7.0 Albumin 4.1 TSH (Reflex) 0.812 Urine Color Yellow Urine Appearance Clear Urine pH 6.5 Ur Specific [place] 1.013 Urine Protein Trace Urine Glucose (UA) Negative Urine Ketones 1+ H Ur Blood (Man) 1+ H Urine Nitrate Negative Urine Bilirubin Negative Urine Urobilinogen 0.2 Leukocyte Esterase Rfl Negative Urine RBC 11-20 H Urine WBC 0-5 Ur Squamous Epith Cells None seen Urine Bacteria None seen Urine Casts 0-2 Ur Random Sodium 42 Ur Random Urea 668 Urine Creatinine 106.2 Valproic Acid Influenza A (RT-PCR) Positive A Influenza B (RT-PCR) Negative RSV (RT-PCR) Negative SARS-CoV-2 RNA (RT-PCR) Negative 09/11/24 09/12/24 09/12/24 18:35 00:10 03:53 WBC 3.7 L RBC 3.28 L Hgb 10.0 L Hct 29.6 L MCV 90.2 MCH 30.5 MCHC 33.8 RDW 13.7 Plt Count 143 L MPV 10.9 H Immature Gran % (Auto) Neut % (Auto) Lymph % (Auto) Lucas % (Auto) Eos % (Auto) Baso % (Auto) Lymph # (Auto) Lucas # (Auto) Eos # (Auto) Baso # (Auto) Abs Immat Gran (auto) Absolute Neuts (auto) Absolute Nucleated RBC Nucleated RBC % PT INR APTT Sodium 124 L 122 L 126 L Potassium Chloride Carbon Dioxide Anion Gap BUN Creatinine Estim Creat Clear Calc Estimated GFR Glucose Calcium Magnesium Total Bilirubin AST ALT Alkaline Phosphatase Total Creatine Kinase 427 H Total Protein Albumin TSH (Reflex) Urine Color Urine Appearance Urine pH Ur Specific [place] Urine Protein Urine Glucose (UA) Urine Ketones Ur Blood (Man) Urine Nitrate Urine Bilirubin Urine Urobilinogen Leukocyte Esterase Rfl Urine RBC Urine WBC Ur Squamous Epith Cells Urine Bacteria Urine Casts Ur Random Sodium Ur Random Urea Urine Creatinine Valproic Acid 31.4 L Influenza A (RT-PCR) Influenza B (RT-PCR) RSV (RT-PCR) SARS-CoV-2 RNA (RT-PCR) 09/12/24 03:53 WBC RBC Hgb Hct MCV MCH MCHC RDW Plt Count MPV Immature Gran % (Auto) Neut % (Auto) Lymph % (Auto) Lucas % (Auto) Eos % (Auto) Baso % (Auto) Lymph # (Auto) Lucas # (Auto) Eos # (Auto) Baso # (Auto) Abs Immat Gran (auto) Absolute Neuts (auto) Absolute Nucleated RBC Nucleated RBC % PT INR APTT Sodium 126 L Potassium 3.9 Chloride 92 L Carbon Dioxide 27 Anion Gap 7 BUN 13 Creatinine 0.72 Estim Creat Clear Calc 49 Estimated GFR > 60 Glucose 111 H Calcium 8.4 Magnesium 1.8 Total Bilirubin 0.4 AST 39 H ALT 18 Alkaline Phosphatase 46 Total Creatine Kinase 411 H Total Protein 6.0 L Albumin 3.4 L TSH (Reflex) Urine Color Urine Appearance Urine pH Ur Specific [place] Urine Protein Urine Glucose (UA) Urine Ketones Ur Blood (Man) Urine Nitrate Urine Bilirubin Urine Urobilinogen Leukocyte Esterase Rfl Urine RBC Urine WBC Ur Squamous Epith Cells Urine Bacteria Urine Casts Ur Random Sodium Ur Random Urea Urine Creatinine Valproic Acid Influenza A (RT-PCR) Influenza B (RT-PCR) RSV (RT-PCR) SARS-CoV-2 RNA (RT-PCR) Quality VTE Prophylaxis VTE prophylaxis: mechanical ordered
[2024-09-12 08:25] LABS: Sodium 126 mmol/L (137-145)
[2024-09-12] MEDS: busPIRone HCL 2.5 MG TABLET PO ×2 (09:05→16:52)
[2024-09-12] MEDS: THERAPEUTIC MULTIVITAMINS/MINERALS TAB (*BKC) 1 TABLET PO (09:06)
[2024-09-12] MEDS: OSELTAMIVIR PHOSPHATE 30 MG CAPSULE PO ×2 (09:06→20:56)
[2024-09-12] MEDS: OMEGA 3 POLYUNSAT FATTY ACIDS 1 GM CAP PO (09:06)
[2024-09-12] MEDS: DIVALPROEX SODIUM DR 250 MG TABEC PO (09:06)
[2024-09-12] MEDS: FUROSEMIDE INJ 40 MG/4 ML VIAL 20 MG IV PUSH (09:18)
[2024-09-12 11:23] LABS: Sodium 126 mmol/L (137-145)
[2024-09-12 14:19] LABS: Sodium 126 mmol/L (137-145)
--- NOTE | 2024-09-12 14:42 | P.CONNP_ITS ---
Assessment and Plan Assessment and plan (1) Hyponatremia: Code(s): E87.1 - Hypo-osmolality and hyponatremia Status: Acute Assessment and Plan: * acute * normal sodium in March 2024 * no significant improvement with IVFs or IV lasix * risk factors for low sodium: * influenza * excessive free water intake (drinks alot of water per nursing and ) * medications (risperidone can cause this; buspar can as well but more rare) * other(?) * agree with fluid restriction * consider d/c risperidone if possible * check TSH, cortisol, SPEP/UPEP; follow-up on serum/urine osmo * follow trend of repeat sodium levels (2) Influenza A: Code(s): J10.1 - Influenza due to other identified influenza virus with other respiratory manifestations Status: Acute Assessment and Plan: * positive testing noted in ER * on Tamiflu * continue supportive therapy (3) Fall from bed: Code(s): W06.XXXA - Fall from bed, initial encounter Status: Acute Assessment and Plan: * as noted by admission history * possibly due to influenza and low sodium level * treatment initiated for hyponatremia and influenza * PT/OT as tolerated I will continue to follow the patient with you while she remains hospitalized and make further recommendations as deemed necessary. Thank you for allowing me to participate in the care of this patient. L History of Present Illness Reason for Consult Consult date: 09/12/24 Reason for consult: hyponatremia Chief Complaint Chief complaint: hyponatremia, influenza A History of Present Illness Narrative: The patient is 79-year-old female with a past medical history as outlined below who presented to [facility] Emergency Room after sustaining a fall the night before. The patient states that she has not been feeling very well for last week if not longer with symptoms of a nonproductive cough, congestion, rhinorrhea, and generalized fatigue/weakness. Her , who accompanied her to the ER, also reports that she has been urinating more frequently with episodes of urinary incontinence as well. Furthermore, and the same time frame, she has been a bit unsteady on her feet has had a couple of falls at home but has not sustained any significant injuries. She states that she has been eating and drinking as per her usual routine and denies any other subjective symptoms with regard to fever, chills, diaphoresis, chest pain, shortness of breath, paresthesias, nausea, vomiting, or diarrhea. Apparently, the night before her presentation to the ER, she slipped out of bed and was unable to get herself up. As this was a significant change in comparison to her previous falls, her brought her into the emergency room for further assessment. Workup and evaluation emergency room was significant for a low-grade fever of 101.0? but she was otherwise hemodynamically stable. Routine blood test demonstrated a CBC with a white cell count of 3.8, hemoglobin 0.3 and normal platelet count and her chemistry demonstrated a sodium of 126, chloride 88 no electrolyte abnormalities, a glucose of 116, and a total CPK 0405. Her urinalysis was significant for 1+ ketones, 1+ blood and 11-20 RBCs but without significant evidence of infection. CT scan of the brain demonstrated no acute findings and her chest x-ray showed a mild left basilar atelectasis. Viral testing for RSV and COVID were negative but she was positive for influenza A. Given her symptoms in context of her low sodium level, she was given a small IV fluid bolus as well as Tylenol and subsequent to the hospital for further evaluate and therapy. Since her admission, her sodium level has not really significantly improved with IV fluid hydration as well as intermittent use of IV Lasix. Furthermore, it is somewhat difficult to fully assess if her low sodium level is actually given her symptoms are not but the concern is that her frequent falls may be partly related to this electrolyte disturbance. Renal consultation was requested due to her acute hyponatremia. From review her labs, her labs 5-6 months ago in March of 2024 showed a normal sodium level. As far as the patient and her are aware, she has never had any issues or problems with hyponatremia in the past although there are some lab values in the [facility] system that show her sodium level closer to the 130ish range. Given the lack of improvement in her sodium level with IV fluids as well as IV Lasix, she has now been instituted on a free water fluid restriction. On further questioning, both the patient as well as her do report that she has a big water drinker and continues to do so even here in the hospital. Currently, at the time my evaluation, she appears to be in no acute distress. Review of Systems 2 Review of Systems: As per HPI. [facility] Past Medical History Medical History Acute psychosis Bilateral cataracts Anxiety Dyslipidemia Mood disorder Surgical History Surgical History History of left knee replacement History of toe surgery wart removal-right foot 5th toe History of hysterectomy Family History Family History Mother Family history of Parkinson's disease Sibling Patient's sister is in good health Family history of throat cancer, Onset Age: 39 Patient's brother is Other Family history of malignant neoplasm of breast Family history of malignant neoplasm of breast in first degree relative Social History Social History Social History: Surrogate medical decision maker: Antolin Joy, spouse ([phone]). Code status: Full code. Smoking status: Never smoker Second hand tobacco smoke exposure: No Alcohol intake: never Substance use: never Substance use type: does not use Do You Feel Safe in your Home?: Yes Lack of Transportation: No Lack of Food: Never True Current Housing: I Have Housing Concerned About Future Housing: No Difficulty Paying Gas/Electric Bills: No Difficulty Paying for Meds: No Currently Unemployed: No Education: Master's Degree or Higher Difficulty w/ Childcare or Family Care: No Living arrangements: with family Occupation/Education: retired Spiritual care concerns: No Agree to blood products: Yes Meds Home Medications and Allergies Home Medications ?Medication ?Instructions ?Recorded ?Confirmed ?Type divalproex 250 mg tablet,delayed 250 mg PO Q12H 09/16/19 09/11/24 History release multivitamin with minerals 1 tablet PO DAILY 09/16/19 09/11/24 History (Multiple Vitamin-Minerals tablet) buspirone 5 mg tablet 2.5 mg PO BID 08/28/23 09/11/24 History risperidone 0.5 mg tablet 0.5 mg PO HS 09/28/23 09/11/24 History (Risperdal) divalproex 250 mg tablet,delayed 250 mg PO Q12H 09/11/24 09/11/24 History release omega 1-ikq-ukw-fish oil 1,000 mg 1 cap PO DAILY 02/19/25 02/19/25 History (120 mg-180 mg) capsule (Fish Oil) Allergies Allergy/AdvReac Type Severity Reaction Status Date / Time Iodinated Contrast Media Allergy Unknown Hives Verified 04/04/24 09:33 iohexol (From contrast - CT, Allergy Unknown Hives Verified 04/04/24 09:33 X-RAY) Vital Signs Vital Signs Temp Pulse Resp BP Pulse Ox 09/12/24 14:00 99.8 F H 100 20 140/60 93 09/12/24 08:00 97 09/12/24 05:00 99.5 F 84 14 127/39 L 92 09/12/24 04:00 80 09/12/24 00:02 84 09/11/24 21:08 98.5 F 82 16 148/54 H 98 09/11/24 18:49 77 26 H 155/83 H 96 Exam 2 Narrative: GENERAL APPEARANCE: elderly but well developed well nourished female in no acute distress HEENT: normocephalic, atraumatic, normal conjunctiva and sclera, nares patient NECK: no lymphadenopathy, thyromegaly, or JVD MOUTH: normal lips, teeth, and gums CARDIOVASCULAR: RRR, normal S1 and S2, no rub detected RESPIRATORY: clear to auscultation bilaterally ABDOMEN: soft, nontender, nondistended, positive bowel sounds present EXTREMITIES: no evidence of cyanosis, clubbing, or edema NEUROLOGICAL: alert and oriented x 3; CN II - XII intact bilaterally; no focal deficits noted Results Lab Results 09/15/24 07:00 09/15/24 07:00 Lab results: Most recent lab results Calcium 8.4 mg/dL (8.4-10.2) 09/12/24 03:53 Magnesium 1.8 mg/dL (1.6-2.3) 09/12/24 03:53 Urine Creatinine 106.2 mg/dL 09/11/24 11:55
[2024-09-12] MEDS: diphenhydrAMINE HCl INJ 50 MG/ML VIAL 25 MG IV PUSH (16:51)
[2024-09-12] MEDS: IPRATROPIUM 0.5 MG/ALBUTEROL SULFATE 2.5 MG AMPUL.NEB 3 ML INHALATION (20:32)
[2024-09-13] VITALS (13 sets, daily range): BP systolic 127–157; BP diastolic 49–69; PULSE 86–120; RESP 16–22; TEMP 36.3–37.2; O2SAT 94–100
[2024-09-13 07:20] LABS: Basophils Percent Auto 0.2 % (0.2-1.2); Hematocrit 32.1 % (37.0-47.0); Hemoglobin 10.5 g/dL (12.0-15.0); Immature Granulocyte Absolute 0.05 K/mm3 (0.00-0.031); Immature Granulocyte Percent A 0.9 % (0-0.5); Lymphocytes Absolute Auto 0.98 K/mm3 (0.9-3.2); Lymphocytes Percent Auto 18.6 % (18.3-44.2); Mean Corpuscular HGB Conc 32.7 g/dl (32-36); Mean Corpuscular Volume 91.7 fl (80-100); Mean Platelet Volume 10.4 fl (7.4-10.4); Monocytes Absolute Auto 0.7 K/mm3 (0.1-0.6); Neutrophils Absolute Auto 3.5 K/mm3 (1.3-6.7); Neutrophils Percent Auto 66.3 % (45.5-73.1); Platelet Count Result 162 k/mm3 (150-375); White Blood Count 5.3 K/mm3 (4.5-10.0)
[2024-09-13 07:46] LABS: Albumin Level 3.2 g/dL (3.5-5.1); Anion Gap 7 mmol/L (4-12); Blood Urea Nitrogen 10 mg/dL (7-17); Calcium 7.9 mg/dL (8.4-10.2); Carbon Dioxide 27 mmol/L (22-30); Chloride 96 mmol/L (98-107); Estimated CRCL calculation 57 ml/min; Estimated Glomerular Filt Rate > 60; Glucose 99 mg/dL (65-110); Magnesium 1.9 mg/dL (1.6-2.3); Phosphorus 3.1 mg/dL (2.5-4.5); Potassium 3.4 mmol/L (3.4-5.0); Sodium 130 mmol/L (137-145)
--- OUTSIDE RECORDS SUMMARY | 2024-09-13 08:03 | XMS_ITS | Patient Health Summary ---
Author Organization [facility] Address [address] [place] [address] Care Team Providers Care Student Affairs Dean Name Role Phone Cristine Plunkett MD Primary Care Provider [phone] Note from [facility],non-owned Affiliates and Associated Physician Practices is amultiple site organization consisting of ambulatory clinics and hospital sitesin [place], [place], [place] and [place]. This disclosure is being madepursuant to the Care Everywhere program and may not contain all information available regarding this patient. Last updated 18.[facility] Allergies * Kdc:Yellow Dye+Cocaine+Sodium Benzoate(Unknown) * Monosodium [...] times daily * Fluticasone Propionate (FLONASE NA) Pease into the nose as needed * vitamin [...] Sexual Orientation Not on file Procedures * IL DESTRUCT BENIGN LESION, 1-14(Performed 02/03/2020) Performed for Seborrheic keratoses, inflamed * IL DESTRUCT BENIGN LESION, 1-14(Performed 10/10/2018) Performed for Seborrheic keratoses, inflamed * DERMATOPATHOLOGY(Performed 08/15/2012) * DERMATOPATHOLOGY(Performed 08/03/2012) * DERMATOPATHOLOGY(Performed 05/08/2012) * DERMATOPATHOLOGY(Performed 02/07/2011) * PATHOLOGY/GENETICS HISTORICAL-ONBASE(Performed 01/13/2011) Results * IL DESTRUCT BENIGN LESION, 1-14 (02/03/2020 12:10 PM [...] and post-cryotherapy handout given. 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 Result CASE: [id number] PATIENT: [facility] DIAGNOSIS: Right pinky toe: VERRUCA VULGARIS CLINICAL DATA: [place] vs Wart. GROSS DESCRIPTION: Received is one formalin filled container labeled with the patient's name and designated right pinky toe. The specimen consists of a punch biopsy measuring [id number], bisected. Jar 0. MICROSCOPIC DESCRIPTION: There is digitated epidermal hyperplasia, hypergranulos is, vacuolated granular layer cells, and compact hyperorthoker atosis. The rete ridges are in-turning. Final Diagnosis performed by Marianne Butler M.D. 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 5[address] Floor Lab [address] [phone] * PATHOLOGY/GENETICS HISTORICAL-ONBASE (01/13/2011) 01/13/2011 Historical Provider LAB - CHEMISTRY O RDERABLES [facility] Care Teams Student Affairs Dean Relationship Specialty Start Date End Date Cristine Plunkett MD [address] [place] [address] PCP - General 02/15/21
--- OUTSIDE RECORDS SUMMARY | 2024-09-13 08:03 | XMS_ITS ---
Author Organization [facility] Address [address] [place] [address] Care Team Providers Care Clinical Genetics Laboratory Chief Name Role Phone Regis Amezcua Primary Care Provider [facility] Unav ailable Unavailable Allergies Allergen (clinical drug ingredient) Drug/Non Drug Allergy documented on EMR Reaction Allergy Type Onset Date Status Monosodium glutamate MSG (uncoded) Unknown Allergy Active REASON FOR VISIT labs Medications Medication SIG (Take, Route, Frequency, Duration) Notes Start Date End Date Status Magnesium Oxide 250 MG 1 tablet as neede d Orally Once a day Not-Taking [place] 3 1000 MG 1 capsule Orally Onc [...] Female Encounters Encounter Location Date Provider Diagnosis [address] [place] [address] 2024 Ozzy Seven Plan Of Treatment No Information Progress Notes * Joanie LONGOB:[birth year] (79 yo F)Acc No.[id number] UNLOCKED PROGRESS NOTE Patient: Joanie LLAMAS Provider: Vicki Amezcua :1945 A ge:79 Y S ex:Female Date:2024 Address:[facility] [address] [place], [id number] Check In:08:06 AM GANG SAWYER Subjective: * Chief Complaints: * 1 . Labs. * Medical History: * Medications: T aking Calcium Carbonate-Vitamin D 500-200 MG-UNIT Tablet 1 tablet with food Orally Once a day , Taking [place] 3 1000 MG Capsule 1 capsule Orally [...] * Treatment: * * Electronic signature of eRgis Amezcua MD, [id number] on 09/13/2024 at 08:02 AM GANG SAWYER Sign off status: Pending * Provider: Vicki Amezcua Date: 1 07/27/2023 Generated for Jose forbes/Rosa Maria/Bibiana on: 0 09/13/2024 08:02 AM GANG SAWYER
--- OUTSIDE RECORDS SUMMARY | 2024-09-13 08:03 | XMS_ITS ---
Author Organization Formerly [facility] Address [address] [place] [address] Care Team Providers Care Rn Neurosurgical Name Role Phone Regis Amezcua Primary Care Provider [facility] Unav ailable Unavailable Allergies Allergen (clinical drug ingredient) Drug/Non Drug Allergy documented on EMR Reaction Allergy Type Onset Date Status Monosodium glutamate MSG (uncoded) Unknown Allergy Active Results Component Value Reference Range Notes CBC With Differential/Platel et* Reviewed date:06/04/2024 04:08:17 PM Interpretation: Performing Lab:[facility], [address] [facility], [place], Phone - [phone], Director - Hilario Notes/Report: WBC 3.7 3.4-10.8 [...] S Reviewed date:06/04/2024 04:07:13 PM Interpretation: Performing Lab:[facility] [place], [address] [facility], Phone - [phone], Director - [facility] Notes/Report: Valproic Acid (Depakote)(R),S 38 50-100 ug/m L Detection Limit = 4 <4 indicates None Detected . Toxicity may occur at levels of 100-500. Measurements of free unbound valproic acid may improve the assess- ment of clinical response. CMP 14 Comprehensive Metabol ic Panel* Reviewed date:06/04/2024 04:08:32 PM Interpretation: Performing Lab:[facility] [place], [address] [facility], Phone - [phone], Director - [facility] Notes/Report: Glucose 95 70-99 mg/dL BUN [...] twice a day for 90 days Active Katy 3 1000 MG 1 capsule Orally Onc [...] 05/21/2024 Encounters Encounter Location Date Provider Diagnosis [address] [address] 05/21/2024 Regis Amezcua Nutritional counseli ng Z71.3 [...] Joanie LONG LouDOB:[birth year] (78 yo F)Acc No.[id number]:05/21/2024 Patient: Joanie LLAMAS Provider: Vicki Amezcua :1945 A ge:78 Y S ex:Female Date:05/21/2024 Address:[facility] [address] [place], [id number] Check In:01:28 PM NEON TUBE BENDER Subjective: * Chief Complaints: * 3 Month [...] way N ot at all. S creening: [place] Suicide Severity Rating Scale (LF) D o [...] vaccine . Had left knee replacement at [facility] in 04/2021. Took Stelazine in past for many years in s. Was diagnosed with Schizoaffective disorder in past. Used to see Dr Doe at [facility]. Her first psych admission in 1980. Also [...] tablet with food Orally Once a day [place]y 3 1000 MG Capsule 1 capsule Orally Once a day busPIRone HCl 5 MG Tablet 1 tablet Orally Twice a day risperiDONE 0.5 MG Tablet 1 tablet bedtime Orally twice a day Divalproex Sodium 250 MG Tablet Delayed Release 1 tablet Orally twice a day Taking Calcium Carbonate-Vitamin D 500-200 MG-UNIT Tablet 1 tablet with food Orally Once a day Taking Katy 3 1000 MG Capsule 1 capsule Orally [...] * Shey Lora 2024 1 1:12:22 AM NEON TUBE BENDER >Specimen collected, patient tolerated well.This lab was reviewed by Regis Amezcua on 06/04/2024 at 16:08 PM NEON TUBE BENDER ?LAB: Valproic Acid (Depakote)(R),S* Value Reference Range V alproic Acid (Depakote)(R),S 38 L 50-100 - ug /mL * Shey Lora 2024 1 1:12:22 AM NEON TUBE BENDER >Specimen collected, patient tolerated well.This lab was reviewed by Regis Amezcua on 06/04/2024 at 16:07 PM NEON TUBE BENDER ?LAB: CMP 14 Comprehensive Metabolic Panel Value [...] * Shey Lora 2024 1 1:12:22 AM NEON TUBE BENDER >Specimen collected, patient tolerated well.This lab was reviewed by Regis Amezcua on 06/04/2024 at 16:08 PM NEON TUBE BENDER Notes:risk & benefits discussed. Continue current treatment. [...] Procedure Codes: 3 008F BODY MASS INDEX [id number] MEDICAL NUTRITION, INDIV, [id number] TOBACCO [id number] [facility] VISIT ESTABLISHED PATIENT * Preventive Medicine: Counseling: C are goal follow-up plan: B CO management provided Vicki Hope Normal BMI Follow-up L ifestyle education regarding diet. * Follow Up: 3 Months * * Sign off status: Completed true * Provider: Vicki Amezcua Date: 1 Generated for Jose forbes/Rosa Maria/eTransmjose m on: 0 09/13/2024 08:03 AM NEON TUBE BENDER History and Physical Notes * HPI (History [...] vaccine . Had left knee replacement at [facility] in 04/2021. Took Stelazine in past for many years in . Was diagnosed with Schizoaffective disorder in past. Used to see Dr Doe at [facility]. Her first psych admission in 1980. Also [place] [address] Wagner. Took Abilify,geodon in past. She showed me old Zoloft tablets prescribed [place] [address] Wagner. MSE--Alert,Ox3,mood pleasant. Affect is appropriate. Denies SI/HI. Denies manic or hypomanic sxs. Insight & judgement alright. Denies hopeless. Speech nl. Denies hallucination. Memory intact. Screening [place] Suicide Severity Rating Scale (LF) Do you [...]
--- OUTSIDE RECORDS SUMMARY | 2024-09-13 08:03 | XMS_ITS | Patient Health Record ---
Author Organization [facility] Address [address] [place] [address] Care Team Providers Care Equipment Application Specialist Name Role Phone MohsenRegis freitas Primary Care Provider [phone] [facility] Unav ailable Unavailable Allergies Allergen (clinical drug ingredient) Drug/Non Drug Allergy documented on EMR Reaction Allergy Type Onset Date Status Monosodium glutamate MSG (uncoded) Unknown Allergy Active Results Component Value Reference Range Notes CBC With Differential/Platel et* Reviewed date:06/04/2024 04:08:17 PM Interpretation: Performing Lab:[facility] [place], [address] [facility], [place], Phone - [phone], Director - Hilario Notes/Report: WBC 3.7 3.4-10.8 [...] S Reviewed date:06/04/2024 04:07:13 PM Interpretation: Performing Lab:[facility] [address] [facility] [place] [facility], Phone - [phone], Director - [facility] Notes/Report: Valproic Acid (Depakote)(R),S 38 50-100 ug/m L Detection Limit = 4 <4 indicates None Detected . Toxicity may occur at levels of 100-500. Measurements of free unbound valproic acid may improve the assess- ment of clinical response. CMP 14 Comprehensive Metabol ic Panel* Reviewed date:06/04/2024 04:08:32 PM Interpretation: Performing Lab:[facility] [place], [address] [facility], Phone - [phone], Director - [facility] Notes/Report: [...] neede d Orally Once a day Not-Taking [place] 3 1000 MG 1 capsule Orally Onc [...] W/U Status Risk Notes Problem Schizoaffective disorder (63616605) Schizoaffective disorder (F25.9) Active confirmed Vital Signs Heart Rate 77 /min 08/13/2024 Respiratory Rate 16 /min 08/13/2024 Oximetry 97 % 08/13/2024 Blood pressure diastolic 60 mm Hg 08/13/2024 Height 65 in 08/13/2024 Blood pressure systolic 128 mm Hg 08/13/2024 Weight 156.0 lbs 08/13/2024 BMI 25.96 kg/m2 08/13/2024 Encounters Encounter Location Date Provider Diagnosis [address] [place] [address] 2024 Arif Habib [address] [place] [address] 11/14/2023 Arif Habib Schizoaffective diso rder F25.[address] [place] [address] 02/20/2024 Arif Habib Schizoaffective diso rder F25.[address] [place] [address] 05/21/2024 Arif Habib Nutritional counseli ng Z71.3 and Schizoaffective disorder F25.[address] [place] [address] 08/13/2024 [facility] Nutritional counseli ng Z71.3 and Schizoaffective disorder F25.[address] [place] [address] 09/22/2023 [facility] Assessments Encounter Date Diagnosis (ICD Code) Assessment Notes Treatment Notes Treatment Clinical Notes Section Notes 05/21/2024 Nutritional counseling (ICD-10 - Z71.3) 02/20/2024 Schizoaffective disorder (ICD-10 - F25.9) risk & benefits discussed. Continue current treatment. Depakote level was 45 on 08/24/23, was 42.0 on 12/02/22, 40.6 was on 04/25/22 . Was 36 on 05/06/21. Her CBC & CMP were unremarkable . Has regular follow up with PCP. No involuntary movement reported. 11/14/2023 Schizoaffective disorder (ICD-10 - F25.9) risk [...] more active with twice a day dose. 08/13/2024 Nutritional counseling (ICD-10 - Z71.3) 05/21/2024 Schizoaffective disorder (ICD-10 - F25.9) risk & benefits discussed. Continue current treatment. Repeat depakote level, CBC, CMPDepakote level was 45 on 08/24/23, was 42.0 on 12/02/22, 40.6 was on 04/25/22 . Was 36 on 05/06/23. Has regular follow up with PCP. No involuntary movement reported. 08/13/2024 Schizoaffective disorder (ICD-10 - F25.9) risk [...] End Date [employer] Medicare [address] [address] [place] [address] [id number] Joanie Hyde Self - patient is the insured 9 0 [employer] Medicare [address] [address] [place] [address] [id number] Joanie Hyde Self - patient is the insured 3 MEDICARE PART A [address] [place] [address] [id number] Joanie Hyde Self - patient is the insured 8 8 MEDICAID [address] [facility] [address] [id number] Joanie Hyde Self - patient is the insured 7 7 AARP Medicare Complete [address] [address] [place] [address] [id number] Joanie Hyde Self - patient is the insured 2 2 Medical (General) History Surgical History Surgery Date(Month/Year) Hospitalization History Reason Date(Month/Year) Left knee surg at [facility] 05/10/20 21
--- OUTSIDE RECORDS SUMMARY | 2024-09-13 08:03 | XMS_ITS ---
Author Organization [facility] Address [address] [place] [address] Care Team Providers Care Accountant Systems Name Role Phone Regis Amezcua Primary Care Provider [facility] Unav ailable Unavailable Allergies [...] neede d Orally Once a day Not-Taking [place] 3 1000 MG 1 capsule Orally Onc [...] 08/13/2024 Encounters Encounter Location Date Provider Diagnosis [address] [place] [address] 08/13/2024 Regis Amezcua Nutritional counseli ng Z71.3 [...] Months, Reason: Progress Notes * Joanie LONG AnniOB:[birth year] (79 yo F)Acc No.[id number]:08/13/2024 Patient: Joanie LLAMAS Provider: Vicki Amezcua :1945 A ge:79 Y S ex:Female Date:08/13/2024 Address:[facility] [address] [place], [id number] Check In:01:28 PM DICE MAKER Subjective: * Chief Complaints: * 3 Month [...] Plan required at this time.. S creening: [place] Suicide Severity Rating Scale (LF) D o [...] vaccine . Had left knee replacement at [facility] in 04/2021. Took Stelazine in past for many years in . Was diagnosed with Schizoaffective disorder in past. Used to see Dr Doe at [facility]. Her first psych admission in 1980. Also [...] stic Procedure: L eft knee surg at [facility] 05/10/2021 * Family History: F ather: [...] tablet with food Orally Once a day [place] 3 1000 MG Capsule 1 capsule Orally Once a day busPIRone HCl 5 MG Tablet 1 tablet Orally Twice a day risperiDONE 0.5 MG Tablet 1 tablet bedtime Orally twice a day Divalproex Sodium 250 MG Tablet Delayed Release 1 tablet Orally twice a day Taking Calcium Carbonate-Vitamin D 500-200 MG-UNIT Tablet 1 tablet with food Orally Once a day Taking [place] 3 1000 MG Capsule 1 capsule Orally [...] Procedure Codes: 3 008F BODY MASS INDEX [id number] MEDICAL NUTRITION, INDIV, [id number] TOBACCO [id number] [facility] VISIT ESTABLISHED PATIENT * Preventive Medicine: Counseling: C are goal follow-up plan: B OK management provided Y nazanin, Vicki morton Normal BMI Follow-up L ifestyle education regarding diet. * Follow Up: 3 Months * * MAKER Sign off status: Completed true * Provider: Vicki Amezcua Date: 08/13/2024 Generated for Jose forbes/Rosa Maria/Bibiana on: 0 09/13/2024 08:03 AM DICE MAKER History and Physical Notes * HPI (History [...] vaccine . Had left knee replacement at [facility] in 04/2021. Took Stelazine in past for many years in . Was diagnosed with Schizoaffective disorder in past. Used to see Dr Doe at [facility]. Her first psych admission in 1980. Also [place] [address] Wagner. Took Abilify,geodon in past. She showed me old Zoloft tablets [place] [address] Wagner. MSE--Alert,Ox3,mood pleasant. Affect is appropriate. Denies SI/HI. Denies manic or hypomanic sxs. Insight & judgement alright. Denies hopeless. Speech nl. Denies hallucination. Memory intact. Screening [place] Suicide Severity Rating Scale (LF) Do you [...]
--- OUTSIDE RECORDS SUMMARY | 2024-09-13 08:03 | XMS_ITS | Clinical Summary ---
Author Organization [facility] Address [address] [facility] [place] [address] Care Team Providers Care Chaser Helper Name Role Phone Cristine Plunkett MD Primary Care Provider [phone] Source Comments [facility],non-[facility] Affiliates and Associated Physician Practices is amultiple site organization consisting of ambulatory clinics and hospital sitesin [place], [place], [place] and [place]. This disclosure is being madepursuant to the Care Everywhere program and may not contain all information available regarding this patient. Last updated 18.[facility] [employer] Allergies Active Allergy Reactions Criticality Noted Date [...] times daily Active Fluticasone Propionate (FLONASE NA) [place] into the nose as needed Active vitamin [...] age to complete this topic Care Teams Chaser Helper Relationship Specialty Start Date End Date Cristine Plunkett MD [address] [place] [address] PCP - General 02/15/21
--- OUTSIDE RECORDS SUMMARY | 2024-09-13 08:03 | XMS_ITS | Referral Summary ---
Author Organization [facility] Address [address] [place] [place] [address] Care Team Providers Care Modeler Name Role Phone Cristine Plunkett MD Primary Care Provider [phone] Source Comments [facility],non-[facility] Affiliates and Associated Physician Practices is amultiple site organization consisting of ambulatory clinics and hospital sitesin [place], [place], [place] and [place]. This disclosure is being madepursuant to the Care Everywhere program and may not contain all information available regarding this patient. Last updated 18.[facility] Allergies Active Allergy Reactions Criticality Noted Date [...] times daily Active Fluticasone Propionate (FLONASE NA) [place] into the nose as needed Active vitamin [...] of Treatment Not on file Care Teams Modeler Relationship Specialty Start Date End Date Cristine Plunkett MD [address] [place] [address] PCP - General 02/15/21
--- OUTSIDE RECORDS SUMMARY | 2024-09-13 08:03 | XMS_ITS | Clinical Summary ---
Author Organization 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
[2024-09-13] MEDS: IPRATROPIUM 0.5 MG/ALBUTEROL SULFATE 2.5 MG AMPUL.NEB 3 ML INHALATION ×2 (08:25→14:35)
[2024-09-13] MEDS: DIVALPROEX SODIUM DR 250 MG TABEC PO ×2 (08:53→21:13)
[2024-09-13] MEDS: OSELTAMIVIR PHOSPHATE 30 MG CAPSULE PO ×2 (08:53→21:13)
[2024-09-13] MEDS: OMEGA 3 POLYUNSAT FATTY ACIDS 1 GM CAP PO (08:53)
[2024-09-13] MEDS: guaiFENesin/DEXTROMETHORPHAN 10 ML UDC PO ×5 (08:54→23:44)
[2024-09-13] MEDS: busPIRone HCL 2.5 MG TABLET PO ×2 (08:54→16:51)
[2024-09-13] MEDS: THERAPEUTIC MULTIVITAMINS/MINERALS TAB (*BKC) 1 TABLET PO (08:54)
--- NOTE | 2024-09-13 09:05 | P.PNIM_ITS ---
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 IVF 20 mg of Lasix x1 Nephrology on board Per nursing patient is chugging water Free water restriction 1500 mL encourage Gatorade (4) Fall from bed: Code(s): W06.XXXA - Fall from bed, initial encounter Status: Acute Assessment and Plan: Initiate fall precautions. PT OT evaluation UA negative for infection (5) Elevated creatine kinase level: Code(s): R74.8 - Abnormal levels of other serum enzymes Status: Acute Assessment and Plan: Daily CK Gentle IVF (6) Anxiety: Code(s): F41.9 - Anxiety disorder, unspecified Status: Acute Assessment and Plan: Continue Buspar (7) Mood disorder: Code(s): F39 - Unspecified mood [affective] disorder Status: Acute Assessment and Plan: . Risperidone Time Spent With Patient Time with patient: Greater than 35 minutes Subjective Date/time seen: 09/13/24 09:05 Interval history: 79-year-old female with history of mood disorder and anxiety presented to the emergency department via private vehicle accompanied by her for evaluation after a fall last night found to have influenza a. Patient blankly staring, not interactive flat affect, states that patient has not doing ADLs to her activities daily living will past few days. He states that she was incontinent of urine, and continue to sleep in a wet spot. Sodium improving this morning. Per nursing patient is much more awake this morning after IV Benadryl yesterday and Holding risperidone. Review of Systems Review of Systems: 12 systems were reviewed and are negativ e except for as per HPI. Exam Narrative: General: Mildly ill-appearing female sitting up in bed in no acute distress. Weight: 72.1 kg. BMI: 29.1. HEENT: Normocephalic, atraumatic. PERRL, EOMI. Sclera anicteric. Moist mucous membranes. Neck: Supple. Respiratory: Respirations are nonlabored lung sounds are clear to auscultation. Occasional cough. Cardiovascular: Regular rate and rhythm with S1-S2. Gastrointestinal: Abdomen is soft and nontender with positive bowel sounds. Bladder feels a bit distended. Skin: Warm and dry. Generalized pallor. Extremities: No cyanosis, clubbing, or edema. Radial and pedal pulses intact. Neurological: Alert. Cranial nerves 2-12 are grossly intact. No gross focal deficits to casual conversation. Psychiatric: Extremely flat affect Objective Data Vital Signs Vital Signs: Vital Signs - 24 hr 09/12/24 12:00 09/12/24 14:00 09/12/24 16:00 Temperature 99.8 F H Pulse Rate 121 H 100 119 H Respiratory Rate 20 Blood Pressure 140/60 Pulse Oximetry 93 Oxygen Delivery 09/12/24 20:02 09/12/24 20:33 09/12/24 20:43 Temperature Pulse Rate 119 H 111 H 108 H Respiratory Rate Blood Pressure Pulse Oximetry Oxygen Delivery 09/12/24 20:55 09/12/24 21:04 09/13/24 00:01 Temperature 98.7 F Pulse Rate 108 H 113 H 120 H Respiratory Rate 20 16 Blood Pressure 164/75 H Pulse Oximetry 93 95 Oxygen Delivery Room Air 09/13/24 04:02 09/13/24 05:35 09/13/24 08:25 Temperature 98.3 F Pulse Rate 106 H 112 H 108 H Respiratory Rate 16 18 Blood Pressure 133/68 Pulse Oximetry 94 Oxygen Delivery 09/13/24 08:33 Temperature Pulse Rate 110 H Respiratory Rate 18 Blood Pressure Pulse Oximetry Oxygen Delivery Intake/Output Intake/Output: Intake & Output 09/10/24 09/11/24 09/12/24 09/13/24 23:59 23:59 23:59 23:59 Intake Total 500 2280 560 Output Total 2300 Balance 500 -20 560 Meds/Results Medications: Active Medications Generic Name Dose Route Start Last Admin Trade Name Freq PRN Reason Stop Dose Admin Acetaminophen 650 mg 09/11/24 22:07 Acetaminophen 325 Mg Tablet PO Q6H PRN Mild Pain (1-3) or Fever Albuterol/Ipratropium 3 ml 09/12/24 20:00 09/13/24 08:25 Ipratropium 0.5 Mg/Albuterol Sulfate 2.5 Mg Ampul.Neb 3 Ml INHALATION 3 ml Q6HRT NEHA Administration Buspirone HCl 2.5 mg 09/12/24 09:00 09/13/24 08:54 Buspirone Hcl 2.5 Mg Tablet PO 2.5 mg BID NEHA Administration Divalproex Sodium 250 mg 09/11/24 21:00 09/13/24 08:[address] 250 Mg Tabec PO 250 mg Q12H NEHA Administration Fish Oil 1 gm 09/12/24 09:00 09/13/24 08:53 [place] 3 Polyunsat Fatty Acids 1 Gm Cap PO 1 gm DAILY NEHA Administration Guaifenesin/Dextromethorphan 10 ml 09/12/24 16:00 09/13/24 08:54 Guaifenesin/Dextromethorphan 10 Ml Udc PO 10 ml Q4H NEHA Administration Sodium Chloride 1,000 mls @ 70 mls/hr 09/12/24 04:10 09/12/24 21:45 Normal Saline Iv IV CONT 70 mls/hr .[id number] NEHA Administration Multivitamins/Calcium 1 tablet 09/12/24 09:00 09/13/24 08:54 Therapeutic Multivitamins/Minerals Tab (*Bkc) PO 1 tablet DAILY NEHA Administration Ondansetron HCl 4 mg 09/11/24 23:14 09/11/24 23:23 Ondansetron Inj 4 Mg/2 Ml Vial IV PUSH 4 mg Q4H PRN Administration Nausea And Vomiting Oseltamivir Phosphate 30 mg 09/11/24 21:00 09/13/24 08:53 Oseltamivir Phosphate 30 Mg Capsule PO 09/16/24 20:59 30 mg Q12HR NEHA Administration Risperidone 0.5 mg 09/12/24 21:00 Risperidone 0.5 Mg Tablet PO HS ON LICENSE OF [facility] Radiology Results: ITS Impressions Head CT 09/11/24 11:20 Impression: No intracranial hemorrhage, mass, or acute infarct. Atrophy and chronic white matter changes, as above. Chest X-Ray 09/11/24 11:32 IMPRESSION: 1. Mild left basilar atelectasis. Pelvis X-Ray 09/11/24 11:33 Impression: 1: No acute fracture. Labs Labs: Laboratory Results - last 24 hr 09/12/24 09/12/24 09/13/24 11:02 13:56 07:10 WBC 5.3 RBC 3.50 L Hgb 10.5 L Hct 32.1 L MCV 91.7 MCH 30.0 MCHC 32.7 RDW 14.0 Plt Count 162 MPV 10.4 Immature Gran % (Auto) 0.9 H Neut % (Auto) 66.3 Lymph % (Auto) 18.6 Mcminn % (Auto) 14.0 H Eos % (Auto) 0.0 Baso % (Auto) 0.2 Lymph # (Auto) 0.98 Mcminn # (Auto) 0.7 H Eos # (Auto) 0.0 Baso # (Auto) 0.0 Abs Immat Gran (auto) 0.05 H Absolute Neuts (auto) 3.5 Absolute Nucleated RBC 0.000 Nucleated RBC % 0.0 Sodium 126 L 126 L 130 L Potassium 3.4 Chloride 96 L Carbon Dioxide 27 Anion Gap 7 BUN 10 Creatinine 0.60 L Estim Creat Clear Calc 57 Estimated GFR > 60 Glucose 99 Calcium 7.9 L Phosphorus 3.1 Magnesium 1.9 Albumin 3.2 L TSH (Reflex) 1.170 Random Cortisol 13.60 Quality VTE Prophylaxis VTE prophylaxis: mechanical ordered
[2024-09-13] MEDS: diphenhydrAMINE HCl INJ 50 MG/ML VIAL 12.5 MG IV PUSH (11:57)
--- NOTE | 2024-09-13 12:57 | P.PNNP_ITS ---
Progress Note: A&P Assessment and Plan (1) Hyponatremia: Code(s): E87.1 - Hypo-osmolality and hyponatremia Status: Acute Assessment and Plan: * acute * normal sodium in March 2024 * no significant improvement with IVFs or IV lasix * risk factors for low sodium: * influenza * excessive free water intake (drinks alot of water per nursing and ) * medications (risperidone can cause this; buspar can as well but more rare) * other(?) * continue with fluid restriction * risperidone on hold (not sure if this would have resulted in improvement in sodium so fast).... * evaluation to date noted: * TSH normal * cortisol okay * serum/urine osmo and SPEP/UPEP pending * urine electrolytes prerenal * follow trend of repeat sodium levels (2) Influenza A: Code(s): J10.1 - Influenza due to other identified influenza virus with other respiratory manifestations Status: Acute Assessment and Plan: * positive testing noted in ER * on Tamiflu * continue supportive therapy (3) Fall from bed: Code(s): W06.XXXA - Fall from bed, initial encounter Status: Acute Assessment and Plan: * as noted by admission history * possibly due to influenza and low sodium level * treatment initiated for hyponatremia and influenza * PT/OT as tolerated Will continue to follow. L Subjective Date/time seen: 09/13/24 12:57 Interval history: Follow-up for acute hyponatremia. Sodium level appears to have improved with institution of fluid restriction; no apparent distress noted at the time of my visit; no issues/events overnight or earlier this morning; working with therapy as tolerated. Exam 2 Narrative: General: elderly but WD/WN female in NAD Heart: normal S1 and S2; no rub Lungs: clear to auscultation Abdomen: soft, nontender, nondistended, positive bowel sounds Extremities: no cyanosis or clubbing; no edema Skin: warm and dry Objective Data Vital Signs Vital Signs: Vital Signs Temp Pulse Resp BP Pulse Ox O2 Del Method 09/13/24 08:33 110 H 18 09/13/24 08:25 108 H 18 09/13/24 08:00 102 H 09/13/24 05:35 98.3 F 112 H 16 133/68 94 09/13/24 04:02 106 H 09/13/24 00:01 120 H 09/12/24 21:04 98.7 F 113 H 16 164/75 H 95 09/12/24 20:55 108 H 20 93 Room Air 09/12/24 20:43 108 H 09/12/24 20:33 111 H 09/12/24 20:02 119 H 09/12/24 16:00 119 H Intake/Output Intake/Output: Intake & Output 09/10/24 09/11/24 09/12/24 09/13/24 23:59 23:59 23:59 23:59 Intake Total 500 2280 800 Output Total 2300 Balance 500 -20 800 Meds/Results Medications: Active Medications Generic Name Dose Route Start Last Admin Trade Name Freq PRN Reason Stop Dose Admin Acetaminophen 650 mg 09/11/24 22:07 Acetaminophen 325 Mg Tablet PO Q6H PRN Mild Pain (1-3) or Fever Albuterol/Ipratropium 3 ml 09/12/24 20:00 09/13/24 08:25 Ipratropium 0.5 Mg/Albuterol Sulfate 2.5 Mg Ampul.Neb 3 Ml INHALATION 3 ml Q6HRT NEHA Administration Buspirone HCl 2.5 mg 09/12/24 09:00 09/13/24 08:54 Buspirone Hcl 2.5 Mg Tablet PO 2.5 mg BID NEHA Administration Divalproex Sodium 250 mg 09/11/24 21:00 09/13/24 08:[address] 250 Mg Tabec PO 250 mg Q12H NEHA Administration Fish Oil 1 gm 09/12/24 09:00 09/13/24 08:53 [place] 3 Polyunsat Fatty Acids 1 Gm Cap PO 1 gm DAILY NEHA Administration Guaifenesin/Dextromethorphan 10 ml 09/12/24 16:00 09/13/24 11:59 Guaifenesin/Dextromethorphan 10 Ml Udc PO 10 ml Q4H NEHA Administration Sodium Chloride 1,000 mls @ 70 mls/hr 09/12/24 04:10 09/12/24 21:45 Normal Saline Iv IV CONT 70 mls/hr .[id number] NEHA Administration Multivitamins/Calcium 1 tablet 09/12/24 09:00 09/13/24 08:54 Therapeutic Multivitamins/Minerals Tab (*Bkc) PO 1 tablet DAILY NEHA Administration Ondansetron HCl 4 mg 09/11/24 23:14 09/11/24 23:23 Ondansetron Inj 4 Mg/2 Ml Vial IV PUSH 4 mg Q4H PRN Administration Nausea And Vomiting Oseltamivir Phosphate 30 mg 09/11/24 21:00 09/13/24 08:53 Oseltamivir Phosphate 30 Mg Capsule PO 09/16/24 20:59 30 mg Q12HR NEHA Administration Radiology Results: ITS Impressions Head CT 09/11/24 11:20 Impression: No intracranial hemorrhage, mass, or acute infarct. Atrophy and chronic white matter changes, as above. Chest X-Ray 09/11/24 11:32 IMPRESSION: 1. Mild left basilar atelectasis. Pelvis X-Ray 09/11/24 11:33 Impression: 1: No acute fracture. Labs Labs: Laboratory Tests 09/13/24 07:10 09/13/24 07:10 Calcium 7.9 L Phosphorus 3.1 Magnesium 1.9 Total Protein Pending Albumin 3.2 L
--- NOTE | 2024-09-13 14:50 | PCSTNOTE ---
Please refer to the Bedside Swallow Evaluation in the EMR. Please note, silent aspiration cannot be ruled out at bedside.
[2024-09-13] MEDS: SODIUM CHLORIDE 0.9% IV 1,000 ML 70 ML IV CONT (19:16)
--- NOTE | 2024-09-13 23:00 | PCRCNOTE ---
Window of time for administration has passed. See next scheduled administration.
[2024-09-14] VITALS (13 sets, daily range): BP systolic 127–163; BP diastolic 56–67; PULSE 73–113; RESP 16–20; TEMP 36.6–37; O2SAT 94–98
[2024-09-14] MEDS: guaiFENesin/DEXTROMETHORPHAN 10 ML UDC PO ×5 (03:04→21:29)
[2024-09-14 04:58] LABS: Protein, Total 5.5 g/dL (6.1-8.1)
[2024-09-14 05:13] LABS: Prolactin 6.4 ng/mL
[2024-09-14] MEDS: IPRATROPIUM 0.5 MG/ALBUTEROL SULFATE 2.5 MG AMPUL.NEB 3 ML INHALATION ×3 (07:35→21:05)
--- NOTE | 2024-09-14 08:15 | P.PNIM_ITS ---
Progress Note: A&P Assessment and Plan (1) Extrapyramidal and movement disorder: Code(s): G25.9 - Extrapyramidal and movement disorder, unspecified Status: Acute Assessment and Plan: Improving Home Risperdal IV Benadryl 50 x1 09/12 IV Benadryl 12.5 09/13 IV Benadryl at bedtime 09/14 Swallow evaluation-patient passed swallow exam, coughing is presumed to be from the flu will add Tessalon Perles (2) Influenza A: Code(s): J10.1 - Influenza due to other identified influenza virus with other respiratory manifestations Status: Acute Assessment and Plan: oseltamivir x5 days Tessalon Perles Robitussin (3) Hyponatremia: Code(s): E87.1 - Hypo-osmolality and hyponatremia Status: Acute Assessment and Plan: Improving 1000 mL was given in the ED and a repeat sodium is pending as well as urine and serum osmolalities and urine sodium and creatinine. IVF 20 mg of Lasix x1 Nephrology on board Per nursing patient is chugging water Free water restriction 1500 mL encourage Gatorade DC telemetry (4) Fall from bed: Code(s): W06.XXXA - Fall from bed, initial encounter Status: Acute Assessment and Plan: Initiate fall precautions. PT OT evaluation UA negative for infection (5) Elevated creatine kinase level: Code(s): R74.8 - Abnormal levels of other serum enzymes Status: Acute Assessment and Plan: Daily CK Gentle IVF (6) Anxiety: Code(s): F41.9 - Anxiety disorder, unspecified Status: Acute Assessment and Plan: Continue Buspar (7) Mood disorder: Code(s): F39 - Unspecified mood [affective] disorder Status: Acute Assessment and Plan: Discontinue Risperidone Will need to follow-up outpatient with Psychiatry Plan Patient will likely be ready for discharge tomorrow either to rehab or home with PT and OT Time Spent With Patient Time with patient: Greater than 35 minutes Subjective Date/time seen: 09/14/24 08:15 Interval history: 79-year-old female with history of mood disorder and anxiety presented to the emergency department via private vehicle accompanied by her for evaluation after a fall last night found to have influenza a and extrapyramidal side effects from risperidone. Sodium improving this morning. Per nursing patient is much more awake this morning after IV Benadryl yesterday and discontinuing risperidone. Patient's mobility is improving however she is still struggling her gait, will do another dose of IV Benadryl, due to patient sleeping poorly at night we will schedule it for 8:00 p.m.. Review of Systems Review of Systems: 12 systems were reviewed and are negativ e except for as per HPI. Exam Narrative: General: Mildly ill-appearing female sitting up in bed in no acute distress. Weight: 72.1 kg. BMI: 29.1. HEENT: Normocephalic, atraumatic. PERRL, EOMI. Sclera anicteric. Moist mucous membranes. Neck: Supple. Respiratory: Respirations are nonlabored lung sounds are clear to auscultation. Occasional cough. Cardiovascular: Regular rate and rhythm with S1-S2. Gastrointestinal: Abdomen is soft and nontender with positive bowel sounds. Bladder feels a bit distended. Skin: Warm and dry. Generalized pallor. Extremities: No cyanosis, clubbing, or edema. Radial and pedal pulses intact. Tremors at rest and with activities, more apparent today Neurological: Alert. Cranial nerves 2-12 are grossly intact. No gross focal deficits to casual conversation. Psychiatric: Affect improving Objective Data Vital Signs Vital Signs: Vital Signs - 24 hr 09/13/24 08:25 09/13/24 08:33 09/13/24 12:00 Temperature Pulse Rate 108 H 110 H 88 Respiratory Rate 18 18 Blood Pressure Pulse Oximetry Oxygen Delivery 09/13/24 14:00 09/13/24 14:35 09/13/24 14:49 Temperature 99.0 F Pulse Rate 86 98 92 Respiratory Rate 18 20 20 Blood Pressure 127/49 L Pulse Oximetry 100 Oxygen Delivery 09/13/24 14:49 09/13/24 16:00 09/13/24 20:00 Temperature Pulse Rate 118 H Respiratory Rate Blood Pressure Pulse Oximetry Oxygen Delivery Room Air Room Air 09/13/24 20:00 09/13/24 20:00 09/13/24 21:16 Temperature 97.4 F L Pulse Rate 108 H 113 H Respiratory Rate 22 H Blood Pressure 138/62 157/69 H Pulse Oximetry 95 Oxygen Delivery 09/14/24 00:00 09/14/24 04:00 09/14/24 06:00 Temperature 98.0 F Pulse Rate 113 H 106 H 110 H Respiratory Rate 16 Blood Pressure 138/62 Pulse Oximetry 94 Oxygen Delivery 09/14/24 06:05 09/14/24 06:05 Temperature Pulse Rate Respiratory Rate Blood Pressure 129/67 127/62 Pulse Oximetry Oxygen Delivery Intake/Output Intake/Output: Intake & Output 09/11/24 09/12/24 09/13/24 09/14/24 23:59 23:59 23:59 23:59 Intake Total 500 2280 2280 550 Output Total 2300 1999 300 Balance 500 -20 280 250 Meds/Results Medications: Active Medications Generic Name Dose Route Start Last Admin Trade Name Freq PRN Reason Stop Dose Admin Acetaminophen 650 mg 09/11/24 22:07 Acetaminophen 325 Mg Tablet PO Q6H PRN Mild Pain (1-3) or Fever Albuterol/Ipratropium 3 ml 09/12/24 20:00 09/14/24 07:35 Ipratropium 0.5 Mg/Albuterol Sulfate 2.5 Mg Ampul.Neb 3 Ml INHALATION 3 ml Q6HRT NEHA Administration Buspirone HCl 2.5 mg 09/12/24 09:00 09/13/24 16:51 Buspirone Hcl 2.5 Mg Tablet PO 2.5 mg BID NEHA Administration Divalproex Sodium 250 mg 09/11/24 21:00 09/13/24 21:[address] 250 Mg Tabec PO 250 mg Q12H NEHA Administration Fish Oil 1 gm 09/12/24 09:00 09/13/24 08:53 [place] 3 Polyunsat Fatty Acids 1 Gm Cap PO 1 gm DAILY NEHA Administration Guaifenesin/Dextromethorphan 10 ml 09/12/24 16:00 09/14/24 03:04 Guaifenesin/Dextromethorphan 10 Ml Udc PO 10 ml Q4H NEHA Administration Sodium Chloride 1,000 mls @ 70 mls/hr 09/12/24 04:10 09/13/24 19:16 Normal Saline Iv IV CONT 70 mls/hr .[id number] NEHA Administration Multivitamins/Calcium 1 tablet 09/12/24 09:00 09/13/24 08:54 Therapeutic Multivitamins/Minerals Tab (*Bkc) PO 1 tablet DAILY NEHA Administration Ondansetron HCl 4 mg 09/11/24 23:14 09/11/24 23:23 Ondansetron Inj 4 Mg/2 Ml Vial IV PUSH 4 mg Q4H PRN Administration Nausea And Vomiting Oseltamivir Phosphate 30 mg 09/11/24 21:00 09/13/24 21:13 Oseltamivir Phosphate 30 Mg Capsule PO 09/16/24 20:59 30 mg Q12HR NEHA Administration Radiology Results: ITS Impressions Head CT 09/11/24 11:20 Impression: No intracranial hemorrhage, mass, or acute infarct. Atrophy and chronic white matter changes, as above. Chest X-Ray 09/11/24 11:32 IMPRESSION: 1. Mild left basilar atelectasis. Pelvis X-Ray 09/11/24 11:33 Impression: 1: No acute fracture. Labs Labs: Laboratory Results - last 24 hr 09/11/24 09/13/24 18:35 07:10 Serum Osmolality 272 L Total Protein 5.5 L TSH (Reflex) 1.170 Prolactin 6.4 Random Cortisol 13.60 Quality VTE Prophylaxis VTE prophylaxis: mechanical ordered
[2024-09-14] MEDS: OSELTAMIVIR PHOSPHATE 30 MG CAPSULE PO ×2 (08:27→21:29)
[2024-09-14] MEDS: DIVALPROEX SODIUM DR 250 MG TABEC PO ×2 (08:27→21:29)
[2024-09-14] MEDS: busPIRone HCL 2.5 MG TABLET PO ×2 (08:27→16:46)
[2024-09-14] MEDS: OMEGA 3 POLYUNSAT FATTY ACIDS 1 GM CAP PO (08:27)
[2024-09-14] MEDS: THERAPEUTIC MULTIVITAMINS/MINERALS TAB (*BKC) 1 TABLET PO (08:27)
[2024-09-14 08:46] LABS: Basophils Percent Auto 0.2 % (0.2-1.2); Eosinophils Percent Auto 0.2 % (0-4.4); Hematocrit 31.4 % (37.0-47.0); Hemoglobin 10.3 g/dL (12.0-15.0); Immature Granulocyte Absolute 0.09 K/mm3 (0.00-0.031); Immature Granulocyte Percent A 1.6 % (0-0.5); Lymphocytes Absolute Auto 1.37 K/mm3 (0.9-3.2); Mean Corpuscular HGB Conc 32.8 g/dl (32-36); Mean Corpuscular Hemoglobin 30.1 pg (26-34); Mean Corpuscular Volume 91.8 fl (80-100); Mean Platelet Volume 10.2 fl (7.4-10.4); Monocytes Absolute Auto 0.4 K/mm3 (0.1-0.6); Monocytes Percent Auto 7.7 % (2.6-8.5); Neutrophils Absolute Auto 3.8 K/mm3 (1.3-6.7); Neutrophils Percent Auto 66.3 % (45.5-73.1); Platelet Count Result 175 k/mm3 (150-375); Red Blood Count 3.42 M/mm3 (4.2-5.4); Red Cell Distribution Width 14.1 % (11.5-14.5); White Blood Count 5.7 K/mm3 (4.5-10.0)
[2024-09-14 08:55] LABS: Albumin Level 3.2 g/dL (3.5-5.1); Anion Gap 9 mmol/L (4-12); Blood Urea Nitrogen 7 mg/dL (7-17); Calcium 7.9 mg/dL (8.4-10.2); Carbon Dioxide 25 mmol/L (22-30); Chloride 100 mmol/L (98-107); Estimated CRCL calculation 61 ml/min; Estimated Glomerular Filt Rate > 60; Glucose 110 mg/dL (65-110); Potassium 3.3 mmol/L (3.4-5.0); Sodium 134 mmol/L (137-145)
[2024-09-14] MEDS: BENZONATATE 100 MG CAPSULE PO ×2 (12:33→16:46)
[2024-09-14] MEDS: POTASSIUM CHLORIDE 20 MEQ PACKET (FOR LIQUID) PO (12:33)
--- NOTE | 2024-09-14 13:45 | P.PNNP_ITS ---
Progress Note: A&P Assessment and Plan (1) Hyponatremia: Code(s): E87.1 - Hypo-osmolality and hyponatremia Status: Acute Assessment and Plan: * slow improvement noted * acute * normal sodium in March 2024 * no significant improvement with IVFs or IV lasix * risk factors for low sodium: * influenza * excessive free water intake (drinks alot of water per nursing and ) * medications (risperidone can cause this; buspar can as well but more rare) * other(?) * continue with fluid restriction * risperidone on hold (not sure if this would have resulted in improvement in sodium so fast).... * evaluation to date noted: * TSH normal * cortisol okay * serum/urine osmo and SPEP/UPEP pending * urine electrolytes prerenal * follow trend of repeat sodium levels (2) Influenza A: Code(s): J10.1 - Influenza due to other identified influenza virus with other respiratory manifestations Status: Acute Assessment and Plan: * positive testing noted in ER * on Tamiflu * continue supportive therapy (3) Fall from bed: Code(s): W06.XXXA - Fall from bed, initial encounter Status: Acute Assessment and Plan: * as noted by admission history * possibly due to influenza and low sodium level * treatment initiated for hyponatremia and influenza * PT/OT as tolerated Will continue to follow. L Subjective Date/time seen: 09/14/24 13:45 Interval history: Follow-up for acute hyponatremia. Sodium level continue to improve with just with fluid restriction as noted by trend of labs in the last few days; no apparent distress voiced at the time of my visit; no other acute complaints voiced at this time; no events/issues overnight or earlier this morning. Exam 2 Narrative: General: elderly but WD/WN female in NAD Heart: normal S1 and S2; no rub Lungs: clear to auscultation Abdomen: soft, nontender, nondistended, positive bowel sounds Extremities: no cyanosis or clubbing; no edema Skin: warm and dry Objective Data Vital Signs Vital Signs: Vital Signs Temp Pulse Resp BP Pulse Ox O2 Del Method 09/14/24 13:25 87 18 09/14/24 13:15 92 18 09/14/24 08:00 85 09/14/24 07:45 78 20 09/14/24 07:35 75 18 09/14/24 07:35 73 18 96 Room Air 09/14/24 06:05 127/62 09/14/24 06:05 129/67 09/14/24 06:00 98.0 F 110 H 16 138/62 94 09/14/24 04:00 106 H 09/14/24 00:00 113 H 09/13/24 21:16 97.4 F L 113 H 22 H 157/69 H 95 09/13/24 20:00 138/62 09/13/24 20:00 108 H 09/13/24 20:00 Room Air Intake/Output Intake/Output: Intake & Output 09/11/24 09/12/24 09/13/24 09/14/24 23:59 23:59 23:59 23:59 Intake Total 500 2280 2280 926 Output Total 2300 2000 300 Balance 500 -20 280 626 Meds/Results Medications: Active Medications Generic Name Dose Route Start Last Admin Trade Name Freq PRN Reason Stop Dose Admin Acetaminophen 650 mg 09/11/24 22:07 Acetaminophen 325 Mg Tablet PO Q6H PRN Mild Pain (1-3) or Fever Albuterol/Ipratropium 3 ml 09/12/24 20:00 09/14/24 13:15 Ipratropium 0.5 Mg/Albuterol Sulfate 2.5 Mg Ampul.Neb 3 Ml INHALATION 3 ml Q6HRT NEHA Administration Benzonatate 100 mg 09/14/24 09:00 09/14/24 16:46 Benzonatate 100 Mg Capsule PO 100 mg TID NEHA Administration Buspirone HCl 2.5 mg 09/12/24 09:00 09/14/24 16:46 Buspirone Hcl 2.5 Mg Tablet PO 2.5 mg BID NEHA Administration Diphenhydramine HCl 25 mg 09/14/24 20:00 Diphenhydramine Hcl Inj 50 Mg/Ml Vial IV PUSH 09/14/24 20:01 ONCE ONE Divalproex Sodium 250 mg 09/11/24 21:00 09/14/24 08:[address] 250 Mg Tabec PO 250 mg Q12H NEHA Administration Fish Oil 1 gm 09/12/24 09:00 09/14/24 08:27 [place] 3 Polyunsat Fatty Acids 1 Gm Cap PO 1 gm DAILY NEHA Administration Guaifenesin/Dextromethorphan 10 ml 09/12/24 16:00 09/14/24 16:46 Guaifenesin/Dextromethorphan 10 Ml Udc PO 10 ml Q4H NEHA Administration Multivitamins/Calcium 1 tablet 09/12/24 09:00 09/14/24 08:27 Therapeutic Multivitamins/Minerals Tab (*Bkc) PO 1 tablet DAILY NEHA Administration Ondansetron HCl 4 mg 09/11/24 23:14 09/11/24 23:23 Ondansetron Inj 4 Mg/2 Ml Vial IV PUSH 4 mg Q4H PRN Administration Nausea And Vomiting Oseltamivir Phosphate 30 mg 09/11/24 21:00 09/14/24 08:27 Oseltamivir Phosphate 30 Mg Capsule PO 09/16/24 20:59 30 mg Q12HR NEHA Administration Radiology Results: ITS Impressions Head CT 09/11/24 11:20 Impression: No intracranial hemorrhage, mass, or acute infarct. Atrophy and chronic white matter changes, as above. Chest X-Ray 09/11/24 11:32 IMPRESSION: 1. Mild left basilar atelectasis. Pelvis X-Ray 09/11/24 11:33 Impression: 1: No acute fracture. Labs Labs: Laboratory Tests 09/14/24 08:27 09/14/24 08:27 Calcium 7.9 L Phosphorus 3.0 Albumin 3.2 L
[2024-09-14 19:29] LABS: Albumin 2.9 g/dL (3.8-4.8); Alpha 1 Globulin 0.4 g/dL (0.2-0.3); Alpha 2 Globulin 0.8 g/dL (0.5-0.9); Beta 1 Globulin 0.4 g/dL (0.4-0.6); Gamma Globulin 0.7 g/dL (0.8-1.7)
[2024-09-14] MEDS: diphenhydrAMINE HCl INJ 50 MG/ML VIAL 25 MG IV PUSH (21:29)
[2024-09-15] VITALS (10 sets, daily range): BP systolic 126–151; BP diastolic 56–64; PULSE 76–110; RESP 14–22; TEMP 36.6–37; O2SAT 93–100
[2024-09-15] MEDS: IPRATROPIUM 0.5 MG/ALBUTEROL SULFATE 2.5 MG AMPUL.NEB 3 ML INHALATION ×4 (03:01→20:06)
[2024-09-15] MEDS: guaiFENesin/DEXTROMETHORPHAN 10 ML UDC PO ×5 (05:30→20:40)
[2024-09-15 07:13] LABS: Basophils Percent Auto 0.2 % (0.2-1.2); Eosinophils Percent Auto 0.4 % (0-4.4); Hematocrit 30.1 % (37.0-47.0); Hemoglobin 9.9 g/dL (12.0-15.0); Immature Granulocyte Absolute 0.12 K/mm3 (0.00-0.031); Immature Granulocyte Percent A 2.3 % (0-0.5); Lymphocytes Absolute Auto 1.19 K/mm3 (0.9-3.2); Mean Corpuscular HGB Conc 32.9 g/dl (32-36); Mean Corpuscular Hemoglobin 30.3 pg (26-34); Monocytes Absolute Auto 0.5 K/mm3 (0.1-0.6); Monocytes Percent Auto 9.3 % (2.6-8.5); Neutrophils Absolute Auto 3.4 K/mm3 (1.3-6.7); Neutrophils Percent Auto 64.8 % (45.5-73.1); Platelet Count Result 220 k/mm3 (150-375); Red Blood Count 3.27 M/mm3 (4.2-5.4); Red Cell Distribution Width 14.1 % (11.5-14.5); White Blood Count 5.2 K/mm3 (4.5-10.0)
[2024-09-15 07:26] LABS: Alanine Aminotransferase 36 U/L (6-35); Albumin Level 3.3 g/dL (3.5-5.1); Alkaline Phosphatase 52 U/L (38-126); Anion Gap 8 mmol/L (4-12); Aspartate Amino Transferase 41 U/L (14-36); Bilirubin,Total 0.4 mg/dL (0.2-1.3); Blood Urea Nitrogen 9 mg/dL (7-17); Calcium 8.3 mg/dL (8.4-10.2); Carbon Dioxide 27 mmol/L (22-30); Chloride 100 mmol/L (98-107); Estimated CRCL calculation 67 ml/min; Estimated Glomerular Filt Rate > 60; Glucose 104 mg/dL (65-110); Phosphorus 3.3 mg/dL (2.5-4.5); Potassium 3.8 mmol/L (3.4-5.0); Sodium 135 mmol/L (137-145)
[2024-09-15] MEDS: DIVALPROEX SODIUM DR 250 MG TABEC PO ×2 (08:06→20:40)
[2024-09-15] MEDS: busPIRone HCL 2.5 MG TABLET PO ×2 (08:06→16:53)
[2024-09-15] MEDS: THERAPEUTIC MULTIVITAMINS/MINERALS TAB (*BKC) 1 TABLET PO (08:06)
[2024-09-15] MEDS: BENZONATATE 100 MG CAPSULE PO ×3 (08:06→16:53)
[2024-09-15] MEDS: OSELTAMIVIR PHOSPHATE 30 MG CAPSULE PO ×2 (08:06→20:40)
[2024-09-15] MEDS: OMEGA 3 POLYUNSAT FATTY ACIDS 1 GM CAP PO (08:06)
--- NOTE | 2024-09-15 08:12 | P.PNIM_ITS ---
Progress Note: A&P Assessment and Plan (1) Pneumonia: Code(s): J18.9 - Pneumonia, unspecified organism Status: Acute Assessment and Plan: Started on azithromycin an Rocephin 09/15 (2) Extrapyramidal and movement disorder: Code(s): G25.9 - Extrapyramidal and movement disorder, unspecified Status: Acute Assessment and Plan: Improving Home Risperdal IV Benadryl 50 x1 09/12 IV Benadryl 12.5 09/13 IV Benadryl at bedtime 09/14, 09/15 Swallow evaluation-patient passed swallow exam, coughing is presumed to be from the flu will add Gee Almaraz (3) Influenza A: Code(s): J10.1 - Influenza due to other identified influenza virus with other respiratory manifestations Status: Acute Assessment and Plan: oseltamivir x5 days Gee Almaraz Robitussin (4) Hyponatremia: Code(s): E87.1 - Hypo-osmolality and hyponatremia Status: Acute Assessment and Plan: Improving 1000 mL was given in the ED and a repeat sodium is pending as well as urine and serum osmolalities and urine sodium and creatinine. IVF 20 mg of Lasix x1 Nephrology on board Per nursing patient is chugging water Free water restriction 2000 mL, encourage Rufina DC telemetry (5) Fall from bed: Code(s): W06.XXXA - Fall from bed, initial encounter Status: Acute Assessment and Plan: Likely secondary to extrapyramidal side effects and flu Initiate fall precautions. PT OT evaluation UA negative for infection (6) Elevated creatine kinase level: Code(s): R74.8 - Abnormal levels of other serum enzymes Status: Acute Assessment and Plan: Daily CK (7) Anxiety: Code(s): F41.9 - Anxiety disorder, unspecified Status: Acute Assessment and Plan: Continue Buspar (8) Mood disorder: Code(s): F39 - Unspecified mood [affective] disorder Status: Acute Assessment and Plan: Discontinue Risperidone Will need to follow-up outpatient with Psychiatry Time Spent With Patient Time with patient: Greater than 35 minutes Subjective Date/time seen: 09/15/24 08:12 Interval history: 79-year-old female with history of mood disorder and anxiety presented to the emergency department via private vehicle accompanied by her for evaluation after a fall last night found to have influenza a and extrapyramidal side effects from risperidone. Sodium improving this morning. Per nursing patient is much more awake this morning after IV Benadryl yesterday and discontinuing risperidone. Adding Ensure shakes with meals, and daily calcium PT recommends skilled Patient with coarse lung sounds today, chest x-ray repeated showing early left basilar infiltrates started on antibiotics for pneumonia Review of Systems Review of Systems: 12 systems were reviewed and are negativ e except for as per HPI. Exam Narrative: General: Mildly ill-appearing female sitting up in bed in no acute distress. W eight: 72.1 kg. BMI: 29.1. HEENT: Normocephalic, atraumatic. PERRL, EOMI. Sclera anicteric. Moist mucous membranes. Neck: Supple. Respiratory: Respirations are nonlabored lung sounds are coarse throughout to auscultation. Occasional cough. Cardiovascular: Regular rate and rhythm with S1-S2. Gastrointestinal: Abdomen is soft and nontender with positive bowel sounds. Bladder feels a bit distended. Skin: Warm and dry. Generalized pallor. Extremities: No cyanosis, clubbing, or edema. Radial and pedal pulses intact. Tremors at rest and with activities, more apparent today Neurological: Alert. Cranial nerves 2-12 are grossly intact. No gross focal deficits to casual conversation. Psychiatric: Affect improving Objective Data Vital Signs Vital Signs: Vital Signs - 24 hr 09/14/24 13:15 09/14/24 13:25 09/14/24 14:00 Temperature 97.8 F Pulse Rate 92 87 88 Respiratory Rate 18 18 18 Blood Pressure 157/56 H Pulse Oximetry 98 Oxygen Delivery 09/14/24 20:00 09/14/24 21:05 09/14/24 21:17 Temperature Pulse Rate 78 78 Respiratory Rate 18 18 Blood Pressure Pulse Oximetry Oxygen Delivery Room Air 09/14/24 21:48 09/15/24 06:00 09/15/24 07:51 Temperature 98.6 F 98.4 F Pulse Rate 94 110 H 103 H Respiratory Rate 18 22 H 20 Blood Pressure 163/67 H 138/64 Pulse Oximetry 94 93 97 Oxygen Delivery Room Air 09/15/24 07:51 Temperature Pulse Rate 103 H Respiratory Rate 20 Blood Pressure Pulse Oximetry Oxygen Delivery Intake/Output Intake/Output: Intake & Output 09/12/24 09/13/24 09/14/24 09/15/24 23:59 23:59 23:59 23:59 Intake Total 2280 2280 1875 220 Output Total 2300 2000 300 1050 Balance -20 280 1575 -830 Meds/Results Medications: Active Medications Generic Name Dose Route Start Last Admin Trade Name Freq PRN Reason Stop Dose Admin Acetaminophen 650 mg 09/11/24 22:07 Acetaminophen 325 Mg Tablet PO Q6H PRN Mild Pain (1-3) or Fever Albuterol/Ipratropium 3 ml 09/12/24 20:00 09/15/24 07:50 Ipratropium 0.5 Mg/Albuterol Sulfate 2.5 Mg Ampul.Neb 3 Ml INHALATION 3 ml Q6HRT NEHA Administration Benzonatate 100 mg 09/14/24 09:00 09/15/24 08:06 Benzonatate 100 Mg Capsule PO 100 mg TID NEHA Administration Buspirone HCl 2.5 mg 09/12/24 09:00 09/15/24 08:06 Buspirone Hcl 2.5 Mg Tablet PO 2.5 mg BID NEHA Administration Divalproex Sodium 250 mg 09/11/24 21:00 09/15/24 08:[address] 250 Mg Tabec PO 250 mg Q12H NEHA Administration Fish Oil 1 gm 09/12/24 09:00 09/15/24 08:06 [place] 3 Polyunsat Fatty Acids 1 Gm Cap PO 1 gm DAILY NEHA Administration Guaifenesin/Dextromethorphan 10 ml 09/12/24 16:00 09/15/24 08:07 Guaifenesin/Dextromethorphan 10 Ml Udc PO 10 ml Q4H NEHA Administration Multivitamins/Calcium 1 tablet 09/12/24 09:00 09/15/24 08:06 Therapeutic Multivitamins/Minerals Tab (*Bkc) PO 1 tablet DAILY NEHA Administration Ondansetron HCl 4 mg 09/11/24 23:14 09/11/24 23:23 Ondansetron Inj 4 Mg/2 Ml Vial IV PUSH 4 mg Q4H PRN Administration Nausea And Vomiting Oseltamivir Phosphate 30 mg 09/11/24 21:00 09/15/24 08:06 Oseltamivir Phosphate 30 Mg Capsule PO 09/16/24 20:59 30 mg Q12HR NEHA Administration Radiology Results: ITS Impressions Head CT 09/11/24 11:20 Impression: No intracranial hemorrhage, mass, or acute infarct. Atrophy and chronic white matter changes, as above. Chest X-Ray 09/11/24 11:32 IMPRESSION: 1. Mild left basilar atelectasis. Pelvis X-Ray 09/11/24 11:33 Impression: 1: No acute fracture. Labs Labs: Laboratory Results - last 24 hr 09/13/24 09/14/24 09/15/24 07:10 08:27 07:00 WBC 5.7 5.2 RBC 3.42 L 3.27 L Hgb 10.3 L 9.9 L Hct 31.4 L 30.1 L MCV 91.8 92.0 MCH 30.1 30.3 MCHC 32.8 32.9 RDW 14.1 14.1 Plt Count 175 220 MPV 10.2 10.0 Immature Gran % (Auto) 1.6 H 2.3 H Neut % (Auto) 66.3 64.8 Lymph % (Auto) 24.0 23.0 Martin % (Auto) 7.7 9.3 H Eos % (Auto) 0.2 0.4 Baso % (Auto) 0.2 0.2 Lymph # (Auto) 1.37 1.19 [place] # (Auto) 0.4 0.5 Eos # (Auto) 0.0 0.0 Baso # (Auto) 0.0 0.0 Abs Immat Gran (auto) 0.09 H 0.12 H Absolute Neuts (auto) 3.8 3.4 Absolute Nucleated RBC 0.000 0.000 Nucleated RBC % 0.0 0.0 Sodium 134 L 135 L Potassium 3.3 L 3.8 Chloride 100 100 Carbon Dioxide 25 27 Anion Gap 9 8 BUN 7 9 Creatinine 0.56 L 0.50 L Estim Creat Clear Calc 61 67 Estimated GFR > 60 > 60 Glucose 110 104 Calcium 7.9 L 8.3 L Phosphorus 3.0 3.3 Magnesium 2.0 Total Bilirubin 0.4 AST 41 H ALT 36 H Alkaline Phosphatase 52 Total Protein 6.0 L Albumin 2.9 L 3.2 L 3.3 L Tpnge-7-Yceeiyiji 0.4 H Gzyzt-0-Qbtplgfim 0.8 Tzzh-3-Yksyaifd 0.4 Evie-0-Rrncfgfz 0.3 Gamma Globulins 0.7 L PEP Interpretation See note Quality VTE Prophylaxis VTE prophylaxis: mechanical ordered
[2024-09-15] MEDS: CALCIUM/VITAMIN D 500 MG/5 MCG (200 I.U.) TABLET PO (12:04)
--- NOTE | 2024-09-15 14:00 | P.PNNP_ITS ---
Progress Note: A&P Assessment and Plan (1) Hyponatremia: Code(s): E87.1 - Hypo-osmolality and hyponatremia Status: Acute Assessment and Plan: * slow improvement * acute * normal sodium in March 2024 * no significant improvement with IVFs or IV lasix * risk factors for low sodium: * influenza * excessive free water intake (drinks alot of water per nursing and ) * medications (risperidone can cause this; buspar can as well but more rare) * other(?) * continue with fluid restriction * risperidone on hold (not sure if this would have resulted in improvement in sodium so fast).... * evaluation to date noted: * TSH normal * cortisol okay * urine osmo and UPEP pending; SPEP negative for paraproteinemia; serum osmo 272 * urine electrolytes prerenal * follow trend of repeat sodium levels (2) Influenza A: Code(s): J10.1 - Influenza due to other identified influenza virus with other respiratory manifestations Status: Acute Assessment and Plan: * positive testing noted in ER * on Tamiflu * continue supportive therapy (3) Fall from bed: Code(s): W06.XXXA - Fall from bed, initial encounter Status: Acute Assessment and Plan: * as noted by admission history * possibly due to influenza and low sodium level * treatment initiated for hyponatremia and influenza * PT/OT as tolerated Not much else to add -- will continue to follow from a distance. L Subjective Date/time seen: 09/15/24 14:00 Interval history: Follow-up for acute hyponatremia. Sodium level appears to be slowly improving with current interventions/therapy (fluid restriction); no apparent distress noted at this time; started on antibiotics due to concerns for possible pneumonia by recent chest x-ray; no other acute issues/events overnight or earlier this morning. Exam 2 Narrative: General: elderly but WD/WN female in NAD Heart: normal S1 and S2; no rub Lungs: clear to auscultation Abdomen: soft, nontender, nondistended, positive bowel sounds Extremities: no cyanosis or clubbing; no edema Skin: warm and dry Objective Data Vital Signs Vital Signs: Vital Signs Temp Pulse Resp BP Pulse Ox O2 Del Method FiO2 09/15/24 14:00 98.6 F 76 18 126/56 L 100 09/15/24 08:00 103 H 20 97 Room Air 09/15/24 07:51 103 H 20 09/15/24 07:51 103 H 20 97 Room Air 09/15/24 06:00 98.4 F 110 H 22 H 138/64 93 09/14/24 21:48 98.6 F 94 18 163/67 H 94 09/14/24 21:17 78 18 09/14/24 21:05 78 18 09/14/24 20:00 Room Air Intake/Output Intake/Output: Intake & Output 09/12/24 09/13/24 09/14/24 09/15/24 23:59 23:59 23:59 23:59 Intake Total 2280 2280 1875 700 Output Total 2300 2000 300 1050 Balance -20 280 1575 -350 Meds/Results Medications: Active Medications Generic Name Dose Route Start Last Admin Trade Name Freq PRN Reason Stop Dose Admin Acetaminophen 650 mg 09/11/24 22:07 Acetaminophen 325 Mg Tablet PO Q6H PRN Mild Pain (1-3) or Fever Albuterol/Ipratropium 3 ml 09/12/24 20:00 09/15/24 14:44 Ipratropium 0.5 Mg/Albuterol Sulfate 2.5 Mg Ampul.Neb 3 Ml INHALATION 3 ml Q6HRT NEHA Administration Benzonatate 100 mg 09/14/24 09:00 09/15/24 16:53 Benzonatate 100 Mg Capsule PO 100 mg TID NEHA Administration Buspirone HCl 2.5 mg 09/12/24 09:00 09/15/24 16:53 Buspirone Hcl 2.5 Mg Tablet PO 2.5 mg BID NEHA Administration Calcium Carbonate 500 mg 09/15/24 08:00 09/15/24 12:04 Calcium/Vitamin D 500 Mg/5 Mcg (200 I.U.) Tablet PO 500 mg DAILY@0800 NEHA Administration Diphenhydramine HCl 25 mg 09/15/24 21:00 Diphenhydramine Hcl Inj 50 Mg/Ml Vial IV PUSH 09/15/24 21:01 ONCE ONE Divalproex Sodium 250 mg 09/11/24 21:00 09/15/24 08:[address] 250 Mg Tabec PO 250 mg Q12H NEHA Administration Fish Oil 1 gm 09/12/24 09:00 09/15/24 08:06 [place] 3 Polyunsat Fatty Acids 1 Gm Cap PO 1 gm DAILY NEHA Administration Guaifenesin/Dextromethorphan 10 ml 09/12/24 16:00 09/15/24 17:05 Guaifenesin/Dextromethorphan 10 Ml Udc PO 10 ml Q4H NEHA Administration Ceftriaxone Sodium 1 gm in 50 mls @ 100 mls/hr 09/15/24 15:00 09/15/24 16:52 Rocephin 1 Gm/Ns 50 Ml IVPB 100 mls/hr Q24H NEHA Administration Azithromycin 500 mg in 250 mls @ 250 mls/hr 09/16/24 15:00 Zithromax IVPB Q24H NEHA Multivitamins/Calcium 1 tablet 09/12/24 09:00 09/15/24 08:06 Therapeutic Multivitamins/Minerals Tab (*Bkc) PO 1 tablet DAILY NEHA Administration Ondansetron HCl 4 mg 09/11/24 23:14 09/11/24 23:23 Ondansetron Inj 4 Mg/2 Ml Vial IV PUSH 4 mg Q4H PRN Administration Nausea And Vomiting Oseltamivir Phosphate 30 mg 09/11/24 21:00 09/15/24 08:06 Oseltamivir Phosphate 30 Mg Capsule PO 09/16/24 20:59 30 mg Q12HR NEHA Administration Radiology Results: ITS Impressions Head CT 09/11/24 11:20 Impression: No intracranial hemorrhage, mass, or acute infarct. Atrophy and chronic white matter changes, as above. Pelvis X-Ray 09/11/24 11:33 Impression: 1: No acute fracture. Chest X-Ray 09/15/24 14:14 IMPRESSION: Early left basilar infiltrate suspected. Labs Labs: Laboratory Tests 09/15/24 07:00 09/15/24 07:00 Calcium 8.3 L Phosphorus 3.3 Magnesium 2.0 Total Bilirubin 0.4 AST 41 H ALT 36 H Alkaline Phosphatase 52 Total Protein 6.0 L Albumin 3.3 L
[2024-09-15] MEDS: diphenhydrAMINE HCl INJ 50 MG/ML VIAL 25 MG IV PUSH (20:40)
[2024-09-16] VITALS (7 sets, daily range): BP systolic 148–156; BP diastolic 66–86; PULSE 76–91; RESP 16–20; TEMP 36.3–36.7; O2SAT 94–95
[2024-09-16] MEDS: IPRATROPIUM 0.5 MG/ALBUTEROL SULFATE 2.5 MG AMPUL.NEB 3 ML INHALATION ×3 (07:32→22:58)
[2024-09-16 08:08] LABS: Creatine Kinase 135 U/L (30-135)
[2024-09-16] MEDS: THERAPEUTIC MULTIVITAMINS/MINERALS TAB (*BKC) 1 TABLET PO (08:27)
[2024-09-16] MEDS: DIVALPROEX SODIUM DR 250 MG TABEC PO ×2 (08:27→20:27)
[2024-09-16] MEDS: busPIRone HCL 2.5 MG TABLET PO ×2 (08:27→17:08)
[2024-09-16] MEDS: BENZONATATE 100 MG CAPSULE PO ×3 (08:27→17:08)
[2024-09-16] MEDS: CALCIUM/VITAMIN D 500 MG/5 MCG (200 I.U.) TABLET PO (08:27)
[2024-09-16] MEDS: OMEGA 3 POLYUNSAT FATTY ACIDS 1 GM CAP PO (08:27)
[2024-09-16] MEDS: OSELTAMIVIR PHOSPHATE 30 MG CAPSULE PO (08:28)
[2024-09-16] MEDS: guaiFENesin/DEXTROMETHORPHAN 10 ML UDC PO ×5 (08:29→23:03)
--- NOTE | 2024-09-16 08:46 | P.PNIM_ITS ---
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, unspecified Status: Acute Assessment and Plan: Improving Home Risperdal IV Benadryl 50 x1 09/12 IV Benadryl 12.5 09/13 IV Benadryl at bedtime 09/14, 09/15 Swallow evaluation-patient passed swallow exam, coughing is presumed to be from the flu will add Gee Almaraz (3) Influenza A: Code(s): J10.1 - Influenza due to other identified influenza virus with other respiratory manifestations Status: Acute Assessment and Plan: oseltamivir x5 days Gee Almaraz Robitussin (4) Hyponatremia: Code(s): E87.1 - Hypo-osmolality and hyponatremia Status: Acute Assessment and Plan: Improving 1000 mL was given in the ED and a repeat sodium is pending as well as urine and serum osmolalities and urine sodium and creatinine. IVF 20 mg of Lasix x1 Nephrology on board Per nursing patient is chugging water Free water restriction 2000 mL, encourage Rufina DC telemetry (5) Fall from bed: Code(s): W06.XXXA - Fall from bed, initial encounter Status: Acute Assessment and Plan: Likely secondary to extrapyramidal side effects and flu Initiate fall precautions. PT OT evaluation UA negative for infection (6) Elevated creatine kinase level: Code(s): R74.8 - Abnormal levels of other serum enzymes Status: Acute Assessment and Plan: Mild rhabdomyolysis Resolved Daily CK (7) Anxiety: Code(s): F41.9 - Anxiety disorder, unspecified Status: Acute Assessment and Plan: Continue Buspar (8) Mood disorder: Code(s): F39 - Unspecified mood [affective] disorder Status: Acute Assessment and Plan: Discontinue Risperidone due to hyponatremia and experimental side effects Will need to follow-up outpatient with Psychiatry Time Spent With Patient Time with patient: Greater than 35 minutes Subjective Date/time seen: 09/16/24 08:46 Interval history: 79-year-old female with history of mood disorder and anxiety presented to the emergency department via private vehicle accompanied by her for evaluation after a fall last night found to have influenza a and extrapyramidal side effects from risperidone. PT recommends skilled, patient is medically ready for discharge started on antibiotics for pneumonia yesterday, transition to p.o. today Review of Systems Review of Systems: 12 systems were reviewed and are negativ e except for as per HPI. Exam Narrative: General: Mildly ill-appearing female sitting up in bed in no acute distress. Weight: 72.1 kg. BMI: 29.1. HEENT: Normocephalic, atraumatic. PERRL, EOMI. Sclera anicteric. Moist mucous membranes. Neck: Supple. Respiratory: Respirations are nonlabored lung sounds are clear throughout to auscultation. Occasional cough. Cardiovascular: Regular rate and rhythm with S1-S2. Gastrointestinal: Abdomen is soft and nontender with positive bowel sounds. Bladder feels a bit distended. Skin: Warm and dry. Generalized pallor. Extremities: No cyanosis, clubbing, or edema. Radial and pedal pulses intact. Tremors at rest and with activities, more apparent today Neurological: Alert. Cranial nerves 2-12 are grossly intact. No gross focal deficits to casual conversation. Psychiatric: Affect improving Objective Data Vital Signs Vital Signs: Vital Signs - 24 hr 09/15/24 14:00 09/15/24 14:44 09/15/24 14:44 Temperature 98.6 F Pulse Rate 76 81 Respiratory Rate 18 16 Blood Pressure 126/56 L Pulse Oximetry 100 98 Oxygen Delivery Room Air Fraction of Inspired Oxygen 21 09/15/24 14:54 09/15/24 20:00 09/15/24 20:06 Temperature Pulse Rate 80 93 Respiratory Rate 16 16 Blood Pressure Pulse Oximetry 96 96 Oxygen Delivery Room Air Room Air Fraction of Inspired Oxygen 21 09/15/24 20:06 09/15/24 20:14 09/15/24 22:00 Temperature 97.9 F Pulse Rate 90 93 96 Respiratory Rate 16 16 14 Blood Pressure 151/57 H Pulse Oximetry 96 Oxygen Delivery Fraction of Inspired Oxygen 09/16/24 06:00 09/16/24 07:32 09/16/24 07:32 Temperature 97.4 F L Pulse Rate 86 86 Respiratory Rate 16 20 Blood Pressure 148/86 H Pulse Oximetry 95 95 Oxygen Delivery Room Air Fraction of Inspired Oxygen 09/16/24 07:38 Temperature Pulse Rate 90 Respiratory Rate 20 Blood Pressure Pulse Oximetry Oxygen Delivery Fraction of Inspired Oxygen Intake/Output Intake/Output: Intake & Output 09/13/24 09/14/24 09/15/24 09/16/24 23:59 23:59 23:59 23:59 Intake Total 2280 1875 940 390 Output Total 1999 300 1050 900 Balance 280 1575 -110 -510 Meds/Results Medications: Active Medications Generic Name Dose Route Start Last Admin Trade Name Freq PRN Reason Stop Dose Admin Acetaminophen 650 mg 09/11/24 22:07 Acetaminophen 325 Mg Tablet PO Q6H PRN Mild Pain (1-3) or Fever Albuterol/Ipratropium 3 ml 09/12/24 20:00 09/16/24 07:32 Ipratropium 0.5 Mg/Albuterol Sulfate 2.5 Mg Ampul.Neb 3 Ml INHALATION 3 ml Q6HRT NEHA Administration Benzonatate 100 mg 09/14/24 09:00 09/16/24 08:27 Benzonatate 100 Mg Capsule PO 100 mg TID NEHA Administration Buspirone HCl 2.5 mg 09/12/24 09:00 09/16/24 08:27 Buspirone Hcl 2.5 Mg Tablet PO 2.5 mg BID NEHA Administration Calcium Carbonate 500 mg 09/15/24 08:00 09/16/24 08:27 Calcium/Vitamin D 500 Mg/5 Mcg (200 I.U.) Tablet PO 500 mg DAILY@0800 NEHA Administration Divalproex Sodium 250 mg 09/11/24 21:00 09/16/24 08:[address] 250 Mg Tabec PO 250 mg Q12H NEHA Administration Fish Oil 1 gm 09/12/24 09:00 09/16/24 08:27 [place] 3 Polyunsat Fatty Acids 1 Gm Cap PO 1 gm DAILY NEHA Administration Guaifenesin/Dextromethorphan 10 ml 09/12/24 16:00 09/16/24 08:29 Guaifenesin/Dextromethorphan 10 Ml Udc PO 10 ml Q4H NEHA Administration Ceftriaxone Sodium 1 gm in 50 mls @ 100 mls/hr 09/15/24 15:00 09/15/24 16:52 Rocephin 1 Gm/Ns 50 Ml IVPB 100 mls/hr Q24H NEHA Administration Azithromycin 500 mg in 250 mls @ 250 mls/hr 09/16/24 15:00 Zithromax IVPB Q24H NEHA Multivitamins/Calcium 1 tablet 09/12/24 09:00 09/16/24 08:27 Therapeutic Multivitamins/Minerals Tab (*Bkc) PO 1 tablet DAILY NEHA Administration Ondansetron HCl 4 mg 09/11/24 23:14 09/11/24 23:23 Ondansetron Inj 4 Mg/2 Ml Vial IV PUSH 4 mg Q4H PRN Administration Nausea And Vomiting Oseltamivir Phosphate 30 mg 09/11/24 21:00 09/16/24 08:28 Oseltamivir Phosphate 30 Mg Capsule PO 09/16/24 20:59 30 mg Q12HR NEHA Administration Radiology Results: ITS Impressions Head CT 09/11/24 11:20 Impression: No intracranial hemorrhage, mass, or acute infarct. Atrophy and chronic white matter changes, as above. Pelvis X-Ray 09/11/24 11:33 Impression: 1: No acute fracture. Chest X-Ray 09/15/24 14:14 IMPRESSION: Early left basilar infiltrate suspected. Labs Labs: Laboratory Results - last 24 hr 09/16/24 07:41 Total Creatine Kinase 135 Quality VTE Prophylaxis VTE prophylaxis: mechanical ordered
[2024-09-16 09:17] LABS: Anion Gap 10 mmol/L (4-12); Blood Urea Nitrogen 11 mg/dL (7-17); Calcium 8.4 mg/dL (8.4-10.2); Carbon Dioxide 25 mmol/L (22-30); Chloride 101 mmol/L (98-107); Estimated CRCL calculation 55 ml/min; Estimated Glomerular Filt Rate > 60; Glucose 97 mg/dL (65-110); Potassium 4.1 mmol/L (3.4-5.0); Sodium 136 mmol/L (137-145)
--- OUTSIDE RECORDS SUMMARY | 2024-09-16 11:12 | XMS_ITS | Patient Health Record ---
Author Organization [facility] Address [address] [place] [address] Care Team Providers Care Manager Of Global Name Role Phone MohsenRegis freitas Primary Care Provider [facility] Unav ailable Unavailable Allergies Allergen (clinical drug ingredient) Drug/Non Drug Allergy documented on EMR Reaction Allergy Type Onset Date Status Monosodium glutamate MSG (uncoded) Unknown Allergy Active Results Component Value Reference Range Notes CBC With Differential/Platel et* Reviewed date:06/04/2024 04:08:17 PM Interpretation: Performing Lab:[facility] [place], [address] [facility], [place], Phone - [phone], Director - Hilario Notes/Report: WBC 3.7 3.4-10.8 [...] S Reviewed date:06/04/2024 04:07:13 PM Interpretation: Performing Lab:[facility] [place] [address] [facility], Phone - [phone], Director - [facility] Notes/Report: Valproic Acid (Depakote)(R),S 38 50-100 ug/m L Detection Limit = 4 <4 indicates None Detected . Toxicity may occur at levels of 100-500. Measurements of free unbound valproic acid may improve the assess- ment of clinical response. CMP 14 Comprehensive Metabol ic Panel* Reviewed date:06/04/2024 04:08:32 PM Interpretation: Performing Lab:[facility] [place], [address] [facility], Phone - [phone], Director - [facility] Notes/Report: Glucose 95 70-99 mg/dL BUN 14 [...] neede d Orally Once a day Not-Taking [place] 3 1000 MG 1 capsule Orally Onc [...] W/U Status Risk Notes Problem Schizoaffective disorder ([id number]) Schizoaffective disorder (F25.9) Active confirmed Vital Signs Heart Rate 77 /min 08/13/2024 Respiratory Rate 16 /min 08/13/2024 Oximetry 97 % 08/13/2024 Blood pressure diastolic 60 mm Hg 08/13/2024 Height 65 in 08/13/2024 Blood pressure systolic 128 mm Hg 08/13/2024 Weight 156.0 lbs 08/13/2024 BMI 25.96 kg/m2 08/13/2024 Encounters Encounter Location Date Provider Diagnosis [address] [place] [address] 09/22/2023 Arif Habib [address] [place] [address] 11/14/2023 Arif Habib Schizoaffective diso rder F25.[address] [place] [address] 05/21/2024 Arif Habib Nutritional counseli ng Z71.3 and Schizoaffective disorder F25.[address] [place] [address] 08/13/2024 Arif Habib Nutritional counseli ng Z71.3 and Schizoaffective disorder F25.[address] [place] [address] 2024 [facility] [address] [place] [address] [facility] Schizoaffective diso rder F25.9 Assessments Encounter Date [...] End Date [employer] A[employer] Medicare [address] [address] [place] [address] [id number] Joanie Hyde Self - patient is the insured 9 0 [employer] A[employer] Medicare [address] [address] [place] [address] [id number] Joanie yHde Self - patient is the insured 3 MEDICARE PART A [address] [place] [address] [id number] Joanie Hyde Self - patient is the insured 8 8 MEDICAID [address] [facility] [place] [address] [id number] Joanie Hyde Self - patient is the insured 7 7 AARP Medicare Complete [address] [address] [place] [address] [id number] Joanie Hyde Self - patient is the insured 2 2 Medical (General) History Surgical History Surgery Date(Month/Year) Hospitalization History Reason Date(Month/Year) Left knee surg at [facility] 05/10/20 21
--- OUTSIDE RECORDS SUMMARY | 2024-09-16 11:12 | XMS_ITS ---
Author Organization [facility] Address [address] [place] [address] Care Team Providers Care Plating Department Helper Name Role Phone Regis Amezcua Primary Care Provider [phone] [facility] Unav ailable Unavailable Allergies Allergen (clinical drug ingredient) Drug/Non Drug Allergy documented on EMR Reaction Allergy Type Onset Date Status Monosodium glutamate MSG (uncoded) Unknown Allergy Active REASON FOR VISIT labs Medications Medication SIG (Take, Route, Frequency, Duration) Notes Start Date End Date Status Magnesium Oxide 250 MG 1 tablet as neede d Orally Once a day Not-Taking [place] 3 1000 MG 1 capsule Orally Onc [...] Female Encounters Encounter Location Date Provider Diagnosis [address] [place] [address] 2024 [facility] Seven Plan Of Treatment No Information Progress Notes * Joanie LONGOB:[birth year] (79 yo F)Acc No.[id number]:2024 UNLOCKED PROGRESS NOTE Patient: Joanie LLAMAS Provider: Vicki Amezcua :1945 A ge:79 Y S ex:Female Date:2024 Address:[facility] [address] [place], [id number] Check In:08:06 AM BUILDING 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 Labs. * Medical History: * Medications: T aking Calcium Carbonate-Vitamin D 500-200 MG-UNIT Tablet 1 tablet with food Orally Once a day , Taking [place] 3 1000 MG Capsule 1 capsule Orally [...] * Electronic signature of Regis Amezcua MD, [id number] on 09/16/2024 at 11:12 AM BUILDING MAINTENANCE REPAIRER Sign off status: Pending * Provider: Vicki Amezcua Date: 1 07/27/2023 Generated for Jose forbes/Rosa Maria/Gopalitting on: 0 09/16/2024 11:12 AM BUILDING MAINTENANCE REPAIRER
--- OUTSIDE RECORDS SUMMARY | 2024-09-16 11:13 | XMS_ITS | Clinical Summary ---
Author Organization [facility] Address [address] [place] [address] Care Team Providers Care Curb And Gutter Laborer Name Role Phone Cristine Plunkett MD Primary Care Provider [phone] Source Comments [facility],non-[facility] Affiliates and Associated Physician Practices is amultiple site organization consisting of ambulatory clinics and hospital sitesin [place], [place], [place] and [place]. This disclosure is being madepursuant to the Care Everywhere program and may not contain all information available regarding this patient. Last updated 18.[facility] Allergies Active Allergy Reactions Criticality Noted Date [...] times daily Active Fluticasone Propionate (FLONASE NA) [place] into the nose as needed Active vitamin [...] age to complete this topic Care Teams Curb And Gutter Laborer Relationship Specialty Start Date End Date Cristine Plunkett MD [address] [place] [address] PCP - General 02/15/21
--- OUTSIDE RECORDS SUMMARY | 2024-09-16 11:13 | XMS_ITS ---
Author Organization [facility] Address [address] [place] [address] Care Team Providers Care Kettle Cook Name Role Phone Regis Amezcua Primary Care Provider [facility] Unav ailable Unavailable Allergies [...] neede d Orally Once a day Not-Taking [place] 3 1000 MG 1 capsule Orally Onc [...] 08/13/2024 Encounters Encounter Location Date Provider Diagnosis [address] [place] [address] 08/13/2024 Regis Amezcua Nutritional counseli ng Z71.3 [...] Joanie LONG AnniOB:[birth year] (79 yo F)Acc No.[id number]:08/13/2024 Patient: Joanie LLAMAS Provider: Vicki Amezcua :1945 A ge:79 Y S ex:Female Date:08/13/2024 Address:[facility] [address] [place], [id number] Check In:01:28 PM ARCHITECTURAL TECHNICIAN Subjective: * Chief Complaints: * 3 Month [...] Plan required at this time.. S creening: Allison Suicide Severity Rating Scale (LF) D o [...] vaccine . Had left knee replacement at [facility] in 04/2021. Took Stelazine in past for many years in . Was diagnosed with Schizoaffective disorder in past. Used to see Dr Doe at [facility] [place], [facility]. Her first psych admission in 1980. Also [...] stic Procedure: L eft knee surg at [facility] 05/10/2021 * Family History: F ather: [...] tablet with food Orally Once a day [place] 3 1000 MG Capsule 1 capsule Orally Once a day busPIRone HCl 5 MG Tablet 1 tablet Orally Twice a day risperiDONE 0.5 MG Tablet 1 tablet bedtime Orally twice a day Divalproex Sodium 250 MG Tablet Delayed Release 1 tablet Orally twice a day Taking Calcium Carbonate-Vitamin D 500-200 MG-UNIT Tablet 1 tablet with food Orally Once a day Taking [place] 3 1000 MG Capsule 1 capsule Orally [...] Procedure Codes: 3 008F BODY MASS INDEX [id number] MEDICAL NUTRITION, INDIV, [id number] TOBACCO [id number] [facility] VISIT ESTABLISHED PATIENT * Preventive Medicine: Counseling: C are goal follow-up plan: B MN management provided Y nazanin, Vicki morton Normal BMI Follow-up L ifestyle education regarding diet. * Follow Up: 3 Months * * ITECTURAL TECHNICIAN Sign off status: Completed true * Provider: Vicki Amezcua Date: 08/13/2024 Generated for Jose forbes/Rosa Maria/Bibiana on: 09/16/2024 11:12 AM ARCHITECTURAL TECHNICIAN History and Physical Notes * HPI (History [...] vaccine . Had left knee replacement at [facility] in 04/2021. Took Stelazine in past for many years in . Was diagnosed with Schizoaffective disorder in past. Used to see Dr Doe at [facility] [place], [facility]. Her first psych admission in 1980. Also [place] [address] [place]. Took Abilify,geodon in past. She showed me old Zoloft tablets prescribed in [address] Wagner. MSE--Alert,Ox3,mood pleasant. Affect is appropriate. Denies SI/HI. Denies manic or hypomanic sxs. Insight & judgement alright. Denies hopeless. Speech nl. Denies hallucination. Memory intact. Screening Allison Suicide Severity Rating Scale (LF) Do you [...]
--- OUTSIDE RECORDS SUMMARY | 2024-09-16 11:13 | XMS_ITS | Patient Health Summary ---
Author Organization [facility] Address [address] [place] [address] Care Team Providers Care Ekg Tech Name Role Phone Cristine Plunkett MD Primary Care Provider [phone] Note from [facility],non-owned Affiliates and Associated Physician Practices is amultiple site organization consisting of ambulatory clinics and hospital sitesin [place], [place], [place] and [place]. This disclosure is being madepursuant to the Care Everywhere program and may not contain all information available regarding this patient. Last updated 18.[facility] [place] Allergies * Kdc:Yellow Dye+Cocaine+Sodium Benzoate(Unknown) * Monosodium [...] times daily * Fluticasone Propionate (FLONASE NA) [place] into the nose as needed * vitamin [...] Sexual Orientation Not on file Procedures * MD DESTRUCT BENIGN LESION, 1-14(Performed 02/03/2020) Performed for Seborrheic keratoses, inflamed * MD DESTRUCT BENIGN LESION, 1-14(Performed 10/10/2018) Performed for Seborrheic keratoses, inflamed * DERMATOPATHOLOGY(Performed 08/15/2012) * DERMATOPATHOLOGY(Performed 08/03/2012) * DERMATOPATHOLOGY(Performed 05/08/2012) * DERMATOPATHOLOGY(Performed 02/07/2011) * PATHOLOGY/GENETICS HISTORICAL-ONBASE(Performed 01/13/2011) Results * MD DESTRUCT BENIGN LESION, 1-14 (02/03/2020 12:10 PM [...] and post-cryotherapy handout given. Javier Galindo MD [facility] Resident, PGY-2 Stephen Irving MD PROCEDURE/MINOR SURG ICAL ORDERABLES * DERMATOPATHOLOGY (08/15/2012 12:00 AM MODERN LANGUAGES PROFESSOR) Only the most recent of4 resultswithin the time period is included. Result CASE: [id number] PATIENT: [facility] PATHOLOGIC DIAGNOSIS: Right pinky toe: VERRUCA VULGARIS CLINICAL DATA: [place] vs Wart. GROSS DESCRIPTION: Received is one formalin filled container labeled with the patient's name and designated right pinky toe. The specimen consists of a punch biopsy measuring [id number], bisected. Jar 0. MICROSCOPIC DESCRIPTION: There is digitated epidermal hyperplasia, hypergranulos is, vacuolated granular layer cells, and compact hyperorthoker atosis. The rete ridges are in-turning. Final Diagnosis performed by Marianne Butler M.D. Electronicall y signed 08/17/2012 12:37:57PM [facility] Comment: Performed at: Dermatopathology Laboratory [facility] - Department of Dermatology [address] [place] [address], Room [address] [place] [address] Phone number: [phone] Toll Free: [phone] FAX: [phone] Skin (tissue) specimen (specimen) 08/15/2012 08/16/2012 Narrative [facility] - 08/17/2012 12:38 PM MODERN LANGUAGES PROFESSOR Specimen A: Type->Punch Site->right pinky toe History->yellow papule Impression->corn vs wart Check Margins:->N/A Prior Biopsy->No Catherine Rodriguez MD LAB - PATHOLOGY/ CYTOLOGY ORDERABLES Performing Organization Address [facility] Co de Phone Number [facility] [address] [place] [address]. 5th Floor Lab [address] [phone] * PATHOLOGY/GENETICS HISTORICAL-ONBASE (01/13/2011) 01/13/2011 Historical Provider LAB - CHEMISTRY O RDERABLES [facility] Care Teams Ekg Tech Relationship Specialty Start Date End Date Cristine Plunkett MD [address] [place] [address] PCP - General 02/15/21
--- OUTSIDE RECORDS SUMMARY | 2024-09-16 11:13 | XMS_ITS | Referral Summary ---
Author Organization [facility] Address [address] [place] [address] Care Team Providers Care Special Education Inclusion Teacher Name Role Phone Cristine Plunkett MD Primary Care Provider [phone] Source Comments [facility],non-[facility] Affiliates and Associated Physician Practices is amultiple site organization consisting of ambulatory clinics and hospital sitesin [place], [place], [place] and [place]. This disclosure is being madepursuant to the Care Everywhere program and may not contain all information available regarding this patient. Last updated 18.[facility] Allergies Active Allergy Reactions Criticality Noted Date [...] times daily Active Fluticasone Propionate (FLONASE NA) [place] into the nose as needed Active vitamin [...] of Treatment Not on file Care Teams Special Education Inclusion Teacher Relationship Specialty Start Date End Date Cristine Plunkett MD [address] [place] [address] PCP - General 02/15/21
--- OUTSIDE RECORDS SUMMARY | 2024-09-16 11:13 | XMS_ITS ---
Author Organization [facility] Address [address] [place] [address] Care Team Providers Care Fast Food Crew Member Name Role Phone Regis Amezcua Primary Care Provider [phone] [facility] Unav ailable Unavailable Allergies Allergen (clinical drug ingredient) Drug/Non Drug Allergy documented on EMR Reaction Allergy Type Onset Date Status Monosodium glutamate MSG (uncoded) Unknown Allergy Active Results Component Value Reference Range Notes CBC With Differential/Platel et* Reviewed date:06/04/2024 04:08:17 PM Interpretation: Performing Lab:[facility], [address] [facility], [place], Phone - [phone], Director - Hilario Notes/Report: WBC 3.7 3.4-10.8 [...] S Reviewed date:06/04/2024 04:07:13 PM Interpretation: Performing Lab:[email or web address] [place], [address] [facility], Phone - [phone], Director - [facility] Notes/Report: Valproic Acid (Depakote)(R),S 38 50-100 ug/m L Detection Limit = 4 <4 indicates None Detected . Toxicity may occur at levels of 100-500. Measurements of free unbound valproic acid may improve the assess- ment of clinical response. CMP 14 Comprehensive Metabol ic Panel* Reviewed date:06/04/2024 04:08:32 PM Interpretation: Performing Lab:[email or web address] [place], [address] [facility], Phone - [phone], Director - [facility] Notes/Report: Glucose 95 70-99 mg/dL BUN [...] twice a day for 90 days Active [place] 3 1000 MG 1 capsule Orally Onc [...] 05/21/2024 Encounters Encounter Location Date Provider Diagnosis [address] [address] 05/21/2024 Regis Amezcua Nutritional counseli ng Z71.3 [...] Joanie LONG LouDOB:[birth year] (78 yo F)Acc No.[id number]:05/21/2024 Patient: Joanie LLAMAS Provider: Vicki Amezcua :1945 A ge:78 Y S ex:Female Date:05/21/2024 Address:[facility] [address] [place], [id number] Check In:01:28 PM [employer] [facility] Subjective: * Chief Complaints: * 3 Month [...] way N ot at all. S creening: Miner Suicide Severity Rating Scale (LF) D o [...] vaccine . Had left knee replacement at [facility] in 04/2021. Took Stelazine in past for many years in s. Was diagnosed with Schizoaffective disorder in past. Used to see Dr Doe at [facility]. Her first psych admission in 1980. [...] tablet with food Orally Once a day [place] 3 1000 MG Capsule 1 capsule Orally Once a day busPIRone HCl 5 MG Tablet 1 tablet Orally Twice a day risperiDONE 0.5 MG Tablet 1 tablet bedtime Orally twice a day Divalproex Sodium 250 MG Tablet Delayed Release 1 tablet Orally twice a day Taking Calcium Carbonate-Vitamin D 500-200 MG-UNIT Tablet 1 tablet with food Orally Once a day Taking [place] 3 1000 MG Capsule 1 capsule Orally [...] * Shey Lora 2024 1 1:12:22 AM [employer] [facility] >Specimen collected, patient tolerated well.This lab was reviewed by Regis Amezcua on 06/04/2024 at 16:08 PM [employer] [facility] ?LAB: Valproic Acid (Depakote)(R),S* Value Reference Range V alproic Acid (Depakote)(R),S 38 L 50-100 - ug /mL * Shey Lora 2024 1 1:12:22 AM [employer] [facility] >Specimen collected, patient tolerated well.This lab was reviewed by Regis Amezcua on 06/04/2024 at 16:07 PM [employer] [facility] ?LAB: CMP 14 Comprehensive Metabolic Panel Value [...] * Shey Lora 2024 1 1:12:22 AM [employer] [facility] >Specimen collected, patient tolerated well.This lab was reviewed by Regis Amezcua on 06/04/2024 at 16:08 PM [employer] [facility] Notes:risk & benefits discussed. Continue current treatment. [...] Procedure Codes: 3 008F BODY MASS INDEX [id number] MEDICAL NUTRITION, INDIV, [id number] TOBACCO [id number] [facility] VISIT ESTABLISHED PATIENT * Preventive Medicine: Counseling: C are goal follow-up plan: B NM management provided Vicki Hope Normal BMI Follow-up L ifestyle education regarding diet. * Follow Up: 3 Months * * Sign off status: Completed true * Provider: Vicki Amezcua Date: 1 Generated for Jose forbes/Rosa Maria/eTransmjose m on: 0 09/16/2024 11:12 AM [employer] [facility] History and Physical Notes * HPI (History [...] vaccine . Had left knee replacement at [facility] in 04/2021. Took Stelazine in past for many years in . Was diagnosed with Schizoaffective disorder in past. Used to see Dr Doe at [facility]. Her first psych admission in 1980. Also [place] [address] [place]. Took Abilify,geodon in past. She showed me old Zoloft tablets prescribed [place] [address] Wagner. MSE--Alert,Ox3,mood pleasant. Affect is appropriate. Denies SI/HI. Denies manic or hypomanic sxs. Insight & judgement alright. Denies hopeless. Speech nl. Denies hallucination. Memory intact. Screening Miner Suicide Severity Rating Scale (LF) Do you [...]
--- OUTSIDE RECORDS SUMMARY | 2024-09-16 11:13 | XMS_ITS | Clinical Summary ---
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
[2024-09-16 11:34] LABS: Kappa\\Lambda Light Chains 1.14 (0.26-1.65); Lambda Light Chain 19.6 mg/L (5.7-26.3)
[2024-09-16] MEDS: AZITHROMYCIN 250 MG TABLET 500 MG PO (18:43)
[2024-09-16] MEDS: AMOXICILLIN/CLAVULANATE K 875-125 MG TAB 1 TABLET PO (18:43)
[2024-09-17] VITALS (8 sets, daily range): BP systolic 131–145; BP diastolic 72–86; PULSE 85–118; RESP 16–22; TEMP 36.4–36.8; O2SAT 94–96
[2024-09-17] MEDS: IPRATROPIUM 0.5 MG/ALBUTEROL SULFATE 2.5 MG AMPUL.NEB 3 ML INHALATION ×3 (01:44→14:48)
[2024-09-17] MEDS: guaiFENesin/DEXTROMETHORPHAN 10 ML UDC PO ×4 (04:23→16:10)
[2024-09-17 06:36] LABS: Anion Gap 5 mmol/L (4-12); Blood Urea Nitrogen 12 mg/dL (7-17); Calcium 8.9 mg/dL (8.4-10.2); Carbon Dioxide 29 mmol/L (22-30); Chloride 102 mmol/L (98-107); Creatine Kinase 130 U/L (30-135); Estimated CRCL calculation 53 ml/min; Estimated Glomerular Filt Rate > 60; Glucose 100 mg/dL (65-110); Sodium 136 mmol/L (137-145)
[2024-09-17] MEDS: THERAPEUTIC MULTIVITAMINS/MINERALS TAB (*BKC) 1 TABLET PO (08:06)
[2024-09-17] MEDS: OMEGA 3 POLYUNSAT FATTY ACIDS 1 GM CAP PO (08:07)
[2024-09-17] MEDS: AMOXICILLIN/CLAVULANATE K 875-125 MG TAB 1 TABLET PO (08:07)
[2024-09-17] MEDS: AZITHROMYCIN 250 MG TABLET 500 MG PO (08:07)
[2024-09-17] MEDS: CALCIUM/VITAMIN D 500 MG/5 MCG (200 I.U.) TABLET PO (08:07)
[2024-09-17] MEDS: busPIRone HCL 2.5 MG TABLET PO ×2 (08:07→16:10)
[2024-09-17] MEDS: BENZONATATE 100 MG CAPSULE PO ×3 (08:07→16:10)
[2024-09-17] MEDS: DIVALPROEX SODIUM DR 250 MG TABEC PO (08:07)
--- NOTE | 2024-09-17 08:08 | P.PNIM_ITS ---
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, unspecified Status: Acute Assessment and Plan: Improving Home Risperdal IV Benadryl 50 x1 09/12 IV Benadryl 12.5 09/13 IV Benadryl at bedtime 09/14, 09/15 Swallow evaluation-patient passed swallow exam, coughing is presumed to be from the flu will add Gee Almaraz (3) Influenza A: Code(s): J10.1 - Influenza due to other identified influenza virus with other respiratory manifestations Status: Acute Assessment and Plan: oseltamivir x5 days Gee Almaraz Robitussin (4) Hyponatremia: Code(s): E87.1 - Hypo-osmolality and hyponatremia Status: Acute Assessment and Plan: Improving 1000 mL was given in the ED and a repeat sodium is pending as well as urine and serum osmolalities and urine sodium and creatinine. IVF 20 mg of Lasix x1 Nephrology on board Per nursing patient is chugging water Free water restriction 2000 mL, encourage Rufina DC telemetry (5) Fall from bed: Code(s): W06.XXXA - Fall from bed, initial encounter Status: Acute Assessment and Plan: Likely secondary to extrapyramidal side effects and flu Initiate fall precautions. PT OT evaluation UA negative for infection (6) Elevated creatine kinase level: Code(s): R74.8 - Abnormal levels of other serum enzymes Status: Acute Assessment and Plan: Mild rhabdomyolysis Resolved Daily CK (7) Anxiety: Code(s): F41.9 - Anxiety disorder, unspecified Status: Acute Assessment and Plan: Continue Buspar (8) Mood disorder: Code(s): F39 - Unspecified mood [affective] disorder Status: Acute Assessment and Plan: Discontinue Risperidone due to hyponatremia and experimental side effects Will need to follow-up outpatient with Psychiatry Subjective Date/time seen: 09/17/24 08:08 Interval history: 79-year-old female with history of mood disorder and anxiety presented to the emergency department via private vehicle accompanied by her for evaluation after a fall last night found to have influenza a and extrapyramidal side effects from risperidone. PT recommends skilled, patient is medically ready for discharge transition to p.o. for pneumonia Patient complaining of hip pain with PT and OT, pelvis x-ray shows no acute fracture, Tylenol scheduled Review of Systems Review of Systems: 12 systems were reviewed and are negativ e except for as per HPI. Exam Narrative: General: Mildly ill-appearing female sitting up in bed in no acute distress. Weight: 72.1 kg. BMI: 29.1. HEENT: Normocephalic, atraumatic. PERRL, EOMI. Sclera anicteric. Moist mucous membranes. Neck: Supple. Respiratory: Respirations are nonlabored lung sounds are clear throughout to auscultation. Occasional cough. Cardiovascular: Regular rate and rhythm with S1-S2. Gastrointestinal: Abdomen is soft and nontender with positive bowel sounds. Bladder feels a bit distended. Skin: Warm and dry. Generalized pallor. Extremities: No cyanosis, clubbing, or edema. Radial and pedal pulses intact. Tremors at rest and with activities, more apparent today Neurological: Alert. Cranial nerves 2-12 are grossly intact. No gross focal deficits to casual conversation. Psychiatric: Affect improving Objective Data Vital Signs Vital Signs: Vital Signs - 24 hr 09/16/24 14:00 09/16/24 14:39 09/16/24 14:39 Temperature 97.8 F Pulse Rate 76 91 Respiratory Rate 18 20 Blood Pressure 152/73 H Pulse Oximetry 94 95 Oxygen Delivery Room Air Fraction of Inspired Oxygen 21 09/16/24 14:44 09/16/24 20:00 09/16/24 22:00 Temperature 98.1 F Pulse Rate 88 82 Respiratory Rate 20 20 Blood Pressure 156/66 H Pulse Oximetry 95 Oxygen Delivery Room Air Fraction of Inspired Oxygen 09/17/24 01:44 09/17/24 01:44 09/17/24 01:50 Temperature Pulse Rate 85 86 Respiratory Rate 18 18 Blood Pressure Pulse Oximetry 96 Oxygen Delivery Room Air Fraction of Inspired Oxygen 09/17/24 06:00 Temperature 97.6 F Pulse Rate 87 Respiratory Rate 22 H Blood Pressure 145/86 H Pulse Oximetry 94 Oxygen Delivery Fraction of Inspired Oxygen Intake/Output Intake/Output: Intake & Output 09/14/24 09/15/24 09/16/24 09/17/24 23:59 23:59 23:59 23:59 Intake Total 7501 612 1551 300 Output Total 300 3409 894 1403 Balance 1575 -110 210 -800 Meds/Results Medications: Active Medications Generic Name Dose Route Start Last Admin Trade Name Freq PRN Reason Stop Dose Admin Acetaminophen 650 mg 09/11/24 22:07 Acetaminophen 325 Mg Tablet PO Q6H PRN Mild Pain (1-3) or Fever Albuterol/Ipratropium 3 ml 09/12/24 20:00 09/17/24 01:44 Ipratropium 0.5 Mg/Albuterol Sulfate 2.5 Mg Ampul.Neb 3 Ml INHALATION 3 ml Q6HRT NEHA Administration Amoxicillin/Clavulanate Potassium 1 tablet 09/16/24 12:40 09/17/24 08:07 Amoxicillin/Clavulanate K 875-125 Mg Tab PO 09/21/24 21:01 1 tablet Q12HR NEHA Administration Azithromycin 500 mg 09/16/24 12:35 09/17/24 08:07 Azithromycin 250 Mg Tablet PO 09/20/24 09:01 500 mg DAILY NEHA Administration Benzonatate 100 mg 09/14/24 09:00 09/17/24 08:07 Benzonatate 100 Mg Capsule PO 100 mg TID NEHA Administration Buspirone HCl 2.5 mg 09/12/24 09:00 09/17/24 08:07 Buspirone Hcl 2.5 Mg Tablet PO 2.5 mg BID NEHA Administration Calcium Carbonate 500 mg 09/15/24 08:00 09/17/24 08:07 Calcium/Vitamin D 500 Mg/5 Mcg (200 I.U.) Tablet PO 500 mg DAILY@0800 NEHA Administration Divalproex Sodium 250 mg 09/11/24 21:00 09/17/24 08:[address] 250 Mg Tabec PO 250 mg Q12H NEHA Administration Fish Oil 1 gm 09/12/24 09:00 09/17/24 08:07 [place] 3 Polyunsat Fatty Acids 1 Gm Cap PO 1 gm DAILY NEHA Administration Guaifenesin/Dextromethorphan 10 ml 09/12/24 16:00 09/17/24 08:06 Guaifenesin/Dextromethorphan 10 Ml Udc PO 10 ml Q4H NEHA Administration Multivitamins/Calcium 1 tablet 09/12/24 09:00 09/17/24 08:06 Therapeutic Multivitamins/Minerals Tab (*Bkc) PO 1 tablet DAILY NEHA Administration Ondansetron HCl 4 mg 09/11/24 23:14 09/11/24 23:23 Ondansetron Inj 4 Mg/2 Ml Vial IV PUSH 4 mg Q4H PRN Administration Nausea And Vomiting Radiology Results: ITS Impressions Head CT 09/11/24 11:20 Impression: No intracranial hemorrhage, mass, or acute infarct. Atrophy and chronic white matter changes, as above. Pelvis X-Ray 09/11/24 11:33 Impression: 1: No acute fracture. Chest X-Ray 09/15/24 14:14 IMPRESSION: Early left basilar infiltrate suspected. Labs Labs: Laboratory Results - last 24 hr 09/13/24 09/16/24 09/17/24 07:10 07:41 06:18 Sodium 136 L 136 L Potassium 4.1 4.0 Chloride 101 102 Carbon Dioxide 25 29 Anion Gap 10 5 BUN 11 12 Creatinine 0.65 L 0.67 L Estim Creat Clear Calc 55 53 Estimated GFR > 60 > 60 Glucose 97 100 Calcium 8.4 8.9 Total Creatine Kinase 135 130 [place]/Lambda Ratio 1.14 Free [place] Light Chains 22.3 H Free [place] Light Chain 19.6 Quality VTE Prophylaxis VTE prophylaxis: mechanical ordered
--- NOTE | 2024-09-17 09:33 | PCPTNOTE ---
On 09/17/24, the student, DIANDRA Del Toro, provided care and completed [facility] documentation on this patient. I have reviewed the student's documentation and agree with the findings.
[2024-09-17] MEDS: ACETAMINOPHEN 325 MG TABLET 650 MG PO (12:06)
--- NOTE | 2024-09-17 14:20 | P.DS_ITS ---
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, unspecified Status: Acute Assessment and Plan: Improving Home Risperdal IV Benadryl 50 x1 09/12 IV Benadryl 12.5 09/13 IV Benadryl at bedtime 09/14, 09/15 Swallow evaluation-patient passed swallow exam, coughing is presumed to be from the flu will add Gee Almaraz (3) Influenza A: Code(s): J10.1 - Influenza due to other identified influenza virus with other respiratory manifestations Status: Acute Assessment and Plan: oseltamivir x5 days Gee Almaraz Robitussin (4) Hyponatremia: Code(s): E87.1 - Hypo-osmolality and hyponatremia Status: Acute Assessment and Plan: Improving 1000 mL was given in the ED and a repeat sodium is pending as well as urine and serum osmolalities and urine sodium and creatinine. IVF 20 mg of Lasix x1 Nephrology on board Per nursing patient is chugging water Free water restriction 2000 mL, encourage Rufina BAILEY telemetry (5) Fall from bed: Code(s): W06.XXXA - Fall from bed, initial encounter Status: Acute Assessment and Plan: Likely secondary to extrapyramidal side effects and flu Initiate fall precautions. PT OT evaluation UA negative for infection (6) Elevated creatine kinase level: Code(s): R74.8 - Abnormal levels of other serum enzymes Status: Acute Assessment and Plan: Mild rhabdomyolysis Resolved Daily CK (7) Anxiety: Code(s): F41.9 - Anxiety disorder, unspecified Status: Acute Assessment and Plan: Continue Buspar (8) Mood disorder: Code(s): F39 - Unspecified mood [affective] disorder Status: Acute Assessment and Plan: Discontinue Risperidone due to hyponatremia and experimental side effects Will need to follow-up outpatient with Psychiatry DS: Summary Hospital Course Reason for hospitalization: Flu a and extrapyramidal side effects Hospital Course: 79-year-old female with history of mood disorder and anxiety presented to the emergency department via private vehicle accompanied by her for evaluation after a fall last night. The patient and her provides the following history. She has not been feeling well for about a week or more with symptoms to include a wet but nonproductive cough, congestion, runny nose, and generalized malaise. has also noticed that she seems to be getting up to urinate more frequently and has had increasing episodes of urinary inco ntinence. Patient found to have influenza a, and severe hyponatremia she was started on Tamiflu and IV fluids. Patient was found almost be catatonic, with tremors. The states that several months ago she started with a shuffling gait, and aggressively declined over the last couple months and is worried that risperidone is causing issues. Patient given IV Benadryl for possible extrapyramidal side effects. The next morning patient had severe tremors however she was more interactive and was able or with PT and OT which was acute improvement compared with the stated she was doing at home. Patient ended up receiving a total of 3 doses of IV Benadryl home, has some tremoring and upper and lower extremities however it is drastically improved since admission. The patient had no change in sodium with IV fluids, Lasix was given with no change. Nephrology was consulted for patient. Patient was found by nurses to be drinking water more than 2 L a day, which likely worsened her hyponatremia. Per Nephrology risperidone also probably contributed to her severe hypernatremia. Risperidone has been discontinued recommendations to not start again. Patient recommended to follow up with Psychiatry for medication management in the future. On day 3 of hospitalization the patient's cough became more congested, x-ray taken possible pneumonia patient started on antibiotics. With improvement. Status at Discharge Functional status at discharge: uses cane/walker Time Spent with Patient Time attestation: Total time spent providing and/or coordinating discharge services: Time spent: Greater than 30 minutes Exam Narrative: General: Mildly ill-appearing female sitting up in bed in no acute distress. Weight: 72.1 kg. BMI: 29.1. HEENT: Normocephalic, atraumatic. PERRL, EOMI. Sclera anicteric. Moist mucous membranes. Neck: Supple. Respiratory: Respirations are nonlabored lung sounds are clear throughout to auscultation. Occasional cough. Cardiovascular: Regular rate and rhythm with S1-S2. Gastrointestinal: Abdomen is soft and nontender with positive bowel sounds. Bladder feels a bit distended. Skin: Warm and dry. Generalized pallor. Extremities: No cyanosis, clubbing, or edema. Radial and pedal pulses intact. Tremors at rest and with activities, more apparent today Neurological: Alert. Cranial nerves 2-12 are grossly intact. No gross focal deficits to casual conversation. Psychiatric: Affect improving DS: Data Data Completed and Pending Labs on day of discharge: Labs from last 24 hours 09/17/24 06:18 Sodium 136 L Potassium 4.0 Chloride 102 Carbon Dioxide 29 Anion Gap 5 BUN 12 Creatinine 0.67 L Estim Creat Clear Calc 53 Estimated GFR > 60 Glucose 100 Calcium 8.9 Total Creatine Kinase 130 Discharge Plan Discharge Consulting providers: Se Orozco Activity: may shower Diet: regular Discharge Instructions: Discharge instructions: Take medications as prescribed New medications prescribed: Antibiotics at discharge Your is risperidone has been stopped with recommendations to not continue, due to extrapyramidal side effects and is listed as an allergy. You are activity as tolerated Monitor blood pressures Avoid social areas, you wear a mask when in social settings Encouraged to continue with yearly vaccinations Return to the emergency department if he developed sudden shortness of breath, chest pain, nausea, vomiting, upset stomach or intractable diarrhea Return to the emergency department if you develop fever greater than 101.5 Follow-up with: Your primary care physician within 1-2 weeks for post hospitalization check up Follow-up with Psychiatry outpatient Thank you for choosing [facility] for your healthcare needs Patient Instructions: Bacterial Pneumonia (DC), Extrapyramidal Symptoms (DC) Patient Language: Polish Follow-up/Referrals: Cristine Plunkett MD [Primary Care Provider] - 2 Weeks Discharge Medications: New azithromycin [Zithromax] 250 mg Tablet 500 mg PO DAILY 2 Days Qty: 4 0RF amoxicillin-pot clavulanate 875-125 mg tablet 1 tablet PO Q12H Qty: 10 0RF Continued divalproex 250 mg tablet,delayed release (DR/EC) 250 mg PO Q12H multivitamin with minerals [Multiple Vitamin-Minerals] Tablet 1 tablet PO DAILY buspirone 5 mg tablet 2.5 mg PO BID omega 5-djf-ysu-fish oil [Fish Oil] 1,000 (120-180) mg capsule 1 cap PO DAILY Discontinued risperidone [Risperdal] 0.5 mg tablet 0.5 mg PO HS divalproex 250 mg tablet,delayed release (DR/EC) 250 mg PO Q12H Date of admission: 09/12/24 14:59 Primary Care Provider: Cristine Plunkett Admitting Provider: Teresita Goncalves Attending physician on admission: Teresita Goncalves Condition: Stable Quality VTE Prophylaxis VTE prophylaxis: mechanical ordered Hospitalist MIPS Heart Failure (Exclusion) Patient has history of Heart Transplant or Left Ventricular Assistive Device?: No IF YES, STOP HERE Heart Failure (Qualifier) Patient has current or prior documentation of LVEF less than or equal to 40%, or mod/servere depressed LVSF?: No IF NO, STOP HERE
[2024-09-17 15:38] LABS: SARS-CoV-2 RNA PCR Negative (Negative)
--- OUTSIDE RECORDS SUMMARY | 2024-09-17 16:24 | XMS_ITS ---
Author Organization [facility] Address [address] [place] [address] Care Team Providers Care Telehealth Nurse Educator Name Role Phone Regis Amezcua Primary Care Provider [facility] Unav ailable Unavailable Allergies Allergen (clinical drug ingredient) Drug/Non Drug Allergy documented on EMR Reaction Allergy Type Onset Date Status Monosodium glutamate MSG (uncoded) Unknown Allergy Active REASON FOR VISIT labs Medications Medication SIG (Take, Route, Frequency, Duration) Notes Start Date End Date Status Magnesium Oxide 250 MG 1 tablet as neede d Orally Once a day Not-Taking [place] 3 1000 MG 1 capsule Orally Onc [...] Female Encounters Encounter Location Date Provider Diagnosis [address] [place] [address] 2024 Ozzy Seven Plan Of Treatment No Information Progress Notes * Joanie LONGOB:[birth year] (79 yo F)Acc No.[id number]:2024 UNLOCKED PROGRESS NOTE Patient: Joanie LLAMAS Provider: Vicki Amezcua :1945 A ge:79 Y S ex:Female Date:2024 Address:[facility] [place] [address] [place], [id number] 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 Labs. * Medical History: * Medications: T aking Calcium Carbonate-Vitamin D 500-200 MG-UNIT Tablet 1 tablet with food Orally Once a day , Taking [place] 3 1000 MG Capsule 1 capsule Orally [...] * Electronic signature of Regis Amezcua MD, [id number] on 09/17/2024 at 04:23 PM VICE PRESIDENT EDUCATION Sign off status: Pending * Provider: Vicki Amezcua Date: 1 07/27/2023 Generated for Jose forbes/Rosa Maria/Bibiana on: 0 09/17/2024 04:23 PM VICE PRESIDENT EDUCATION
--- OUTSIDE RECORDS SUMMARY | 2024-09-17 16:24 | XMS_ITS | Clinical Summary ---
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
--- OUTSIDE RECORDS SUMMARY | 2024-09-17 16:24 | XMS_ITS | Referral Summary ---
Author Organization [facility] Address [address] [place] [address] Care Team Providers Care Whizzer Hand Name Role Phone Cristine Plunkett MD Primary Care Provider [phone] Source Comments [facility],non-[facility] Affiliates and Associated Physician Practices is amultiple site organization consisting of ambulatory clinics and hospital sitesin [place], [place], [place] and [place]. This disclosure is being madepursuant to the Care Everywhere program and may not contain all information available regarding this patient. Last updated 18.[facility] Allergies Active Allergy Reactions Criticality Noted [...] times daily Active Fluticasone Propionate (FLONASE NA) [place] into the nose as needed Active vitamin [...] of Treatment Not on file Care Teams Whizzer Hand Relationship Specialty Start Date End Date Cristine Plunkett MD [address] [place] [address] PCP - General 02/15/21
--- OUTSIDE RECORDS SUMMARY | 2024-09-17 16:24 | XMS_ITS | Patient Health Summary ---
Author Organization [facility] Address [address] [facility] [place] [address] Care Team Providers Care Tank Truck Driver Name Role Phone Cristine Plunkett MD Primary Care Provider [phone] Note from [facility][note 3],non-owned Affiliates and Associated Physician Practices is amultiple site organization consisting of ambulatory clinics and hospital sitesin [place], [place], [place] and [place]. This disclosure is being madepursuant to the Care Everywhere program and may not contain all information available regarding this patient. Last updated 18.[facility] [employer] Allergies * Kdc:Yellow Dye+Cocaine+Sodium Benzoate(Unknown) * Monosodium [...] times daily * Fluticasone Propionate (FLONASE NA) [place] into the nose as needed * vitamin [...] Sexual Orientation Not on file Procedures * NM DESTRUCT BENIGN LESION, 1-14(Performed 02/03/2020) Performed for Seborrheic keratoses, inflamed * NM DESTRUCT BENIGN LESION, 1-14(Performed 10/10/2018) Performed for Seborrheic keratoses, inflamed * DERMATOPATHOLOGY(Performed 08/15/2012) * DERMATOPATHOLOGY(Performed 08/03/2012) * DERMATOPATHOLOGY(Performed 05/08/2012) * DERMATOPATHOLOGY(Performed 02/07/2011) * PATHOLOGY/GENETICS HISTORICAL-ONBASE(Performed 01/13/2011) Results * NM DESTRUCT BENIGN LESION, 1-14 (02/03/2020 12:10 PM [...] and post-cryotherapy handout given. Javier Galindo MD [facility] Dermatology Resident, PGY-2 Stephen Irving MD PROCEDURE/MINOR SURG ICAL ORDERABLES * DERMATOPATHOLOGY (08/15/2012 12:00 AM TRUST EVALUATION SUPERVISOR) Only the most recent of4 resultswithin the time period is included. Result CASE: [id number] PATIENT: ISIS LONG PATHOLOGIC DIAGNOSIS: Right pinky toe: VERRUCA VULGARIS CLINICAL DATA: [place] vs Wart. GROSS DESCRIPTION: Received is one formalin filled container labeled with the patient's name and designated right pinky toe. The specimen consists of a punch biopsy measuring [id number], bisected. Jar 0. MICROSCOPIC DESCRIPTION: There is digitated epidermal hyperplasia, hypergranulos is, vacuolated granular layer cells, and compact hyperorthoker atosis. The rete ridges are in-turning. Final Diagnosis performed by Marianne Butler M.D. Electronicall y signed 08/17/2012 12:37:57PM [facility] DERMAT[facility] Comment: Performed at: Dermatopathology Laboratory [facility] - Department of Dermatology [address] [place] [address], Room [address] [place] [address] Phone number: [phone] Toll Free: [phone] FAX: [phone] Skin (tissue) specimen (specimen) 08/15/2012 08/16/2012 Narrative [facility] - 08/17/2012 12:38 PM TRUST EVALUATION SUPERVISOR Specimen A: Type->Punch Site->right pinky toe History->yellow papule Impression->corn vs wart Check Margins:->N/A Prior Biopsy->No Catherine Rodriguez MD LAB - PATHOLOGY/ CYTOLOGY ORDERABLES Performing Organization Address [facility] Co de Phone Number [facility] [address] [place] [address]. 5th Floor Lab [address] [phone] * PATHOLOGY/GENETICS HISTORICAL-ONBASE (01/13/2011) 01/13/2011 Historical Provider LAB - CHEMISTRY O RDERABLES [facility] Care Teams Tank Truck Driver Relationship Specialty Start Date End Date Cristine Plunkett MD [address] [place] [address] PCP - General 02/15/21
--- OUTSIDE RECORDS SUMMARY | 2024-09-17 16:24 | XMS_ITS ---
Author Organization [facility] Address [address] [place] [address] Care Team Providers Care Universal Banker Name Role Phone Regis Amezcua Primary Care Provider [facility] Unav ailable Unavailable Allergies Allergen [...] neede d Orally Once a day Not-Taking [place] 3 1000 MG 1 capsule Orally Onc [...] Answer Notes Tobacco use: Nonsmoker Vital Signs Blood pressure systolic 128 mm Hg 08/13/19 25 Blood pressure diastolic 60 mm Hg 025 Heart Rate 77 /min 08/13/2024 Respiratory Rate 16 /min 08/13/2024 Height 65 in 08/13/2024 Weight 156.0 lbs 08/13/2024 BMI 25.96 kg/m2 08/13/2024 Oximetry 97 % 08/13/2024 Encounters Encounter Location Date Provider Diagnosis [address] [place] [address] 08/13/2024 Regis Amezcua Nutritional counseli ng Z71.3 [...] Joanie LONG AnniOB:[birth year] (79 yo F)Acc No.[id number]:08/13/2024 Patient: Joanie LLAMAS Provider: Vicki Amezcua :1945 A ge:79 Y S ex:Female Date:08/13/2024 Address:[facility] [address] [place], [id number] Check In:01:28 PM PLYWOOD FACTORY WORKER Subjective: * Chief Complaints: * 3 Month [...] Plan required at this time.. S creening: [place] Suicide Severity Rating Scale (LF) D o [...] vaccine . Had left knee replacement at [facility] in 04/2021. Took Stelazine in past for [...] stic Procedure: L eft knee surg at [facility] 05/10/2021 * Family History: F ather: [...] tablet with food Orally Once a day [place] 3 1000 MG Capsule 1 capsule Orally Once a day busPIRone HCl 5 MG Tablet 1 tablet Orally Twice a day risperiDONE 0.5 MG Tablet 1 tablet bedtime Orally twice a day Divalproex Sodium 250 MG Tablet Delayed Release 1 tablet Orally twice a day Taking Calcium Carbonate-Vitamin D 500-200 MG-UNIT Tablet 1 tablet with food Orally Once a day Taking [place] 3 1000 MG Capsule 1 capsule Orally [...] Procedure Codes: 3 008F BODY MASS INDEX [id number] MEDICAL NUTRITION, INDIV, [id number] TOBACCO [id number] [facility] VISIT ESTABLISHED PATIENT * Preventive Medicine: Counseling: C are goal follow-up plan: B KS management provided Y nazanin, Vicki morton Normal BMI Follow-up L ifestyle education regarding diet. * Follow Up: 3 Months * * OOD FACTORY WORKER Sign off status: Completed true * Provider: Vicki Amezcua Date: 0 08/13/2024 Generated for Jose forbes/Rosa Maria/Bibiana on: 0 09/17/2024 04:23 PM PLYWOOD FACTORY WORKER History and Physical Notes * HPI (History [...] vaccine . Had left knee replacement at [facility] in 04/2021. Took Stelazine in past for [...] Speech nl. Denies hallucination. Memory intact. Screening [place] Suicide Severity Rating Scale (LF) Do you [...]
--- OUTSIDE RECORDS SUMMARY | 2024-09-17 16:24 | XMS_ITS | Clinical Summary ---
Author Organization [facility] Address [address] [facility] [place] [address] Care Team Providers Care Armor Senior Sergeant Name Role Phone Cristine Plunkett MD Primary Care Provider [phone] Source Comments [facility],non-[facility] Affiliates and Associated Physician Practices is amultiple site organization consisting of ambulatory clinics and hospital sitesin [place], [place], [place] and [place]. This disclosure is being madepursuant to the Care Everywhere program and may not contain all information available regarding this patient. Last updated 18.[facility] Allergies Active Allergy Reactions Criticality Noted Date [...] times daily Active Fluticasone Propionate (FLONASE NA) [place] into the nose as needed Active vitamin [...] age to complete this topic Care Teams Armor Senior Sergeant Relationship Specialty Start Date End Date Cristine Plunkett MD [address] [place] [address] PCP - General 02/15/21
--- OUTSIDE RECORDS SUMMARY | 2024-09-17 16:24 | XMS_ITS | Patient Health Record ---
Author Organization [facility] Address [address] [place] [address] Care Team Providers Care Metal Drawer Name Role Phone MohsenRegis freitas Primary Care Provider [facility] Unav ailable Unavailable Allergies Allergen (clinical drug ingredient) Drug/Non Drug Allergy documented on EMR Reaction Allergy Type Onset Date Status Monosodium glutamate MSG (uncoded) Unknown Allergy Active Results Component Value Reference Range Notes CBC With Differential/Platel et* Reviewed date:06/04/2024 04:08:17 PM Interpretation: Performing Lab:[facility] [place], [address] [facility] [place], Phone - [phone], Director - Hilario Notes/Report: WBC 3.7 3.4-10.8 [...] S Reviewed date:06/04/2024 04:07:13 PM Interpretation: Performing Lab:[facility] [address] [facility], Phone - [phone], Director - [facility] Notes/Report: Valproic Acid (Depakote)(R),S 38 50-100 ug/m L Detection Limit = 4 <4 indicates None Detected . Toxicity may occur at levels of 100-500. Measurements of free unbound valproic acid may improve the assess- ment of clinical response. CMP 14 Comprehensive Metabol ic Panel* Reviewed date:06/04/2024 04:08:32 PM Interpretation: Performing Lab:[facility] [place], [address] [facility], Phone - [phone], Director - [facility] Notes/Report: Glucose 95 70-99 mg/dL BUN [...] neede d Orally Once a day Not-Taking [place] 3 1000 MG 1 capsule Orally Onc [...] W/U Status Risk Notes Problem Schizoaffective disorder ([id number]) Schizoaffective disorder (F25.9) Active confirmed Vital Signs Heart Rate 77 /min 08/13/2024 Respiratory Rate 16 /min 08/13/2024 Oximetry 97 % 08/13/2024 Blood pressure diastolic 60 mm Hg 08/13/2024 Height 65 in 08/13/2024 Blood pressure systolic 128 mm Hg 08/13/2024 Weight 156.0 lbs 08/13/2024 BMI 25.96 kg/m2 08/13/2024 Encounters Encounter Location Date Provider Diagnosis [address] [place] [address] 09/22/2023 Arif Habib [address] [place] [address] 11/14/2023 Arif Habib Schizoaffective diso rder F25.[address] [place] [address] 05/21/2024 Arif Habib Nutritional counseli ng Z71.3 and Schizoaffective disorder F25.[address] [place] [address] 08/13/2024 Arif Habib Nutritional counseli ng Z71.3 and Schizoaffective disorder F25.[address] [place] [address] 2024 [facility] Seven [address] [place] [address] [facility] Schizoaffective diso rder F25.9 Assessments Encounter Date Diagnosis (ICD Code) Assessment Notes Treatment Notes Treatment Clinical Notes Section Notes 02/20/2024 Schizoaffective disorder (ICD-10 - F25.9) risk & benefits discussed. Continue current treatment. Depakote level was 45 on 08/24/23, was 42.0 on 12/02/22, 40.6 was on 04/25/22 . Was 36 on 05/06/21. Her CBC & CMP were unremarkable . Has regular follow up with PCP. No involuntary movement reported. 05/21/2024 Nutritional counseling (ICD-10 - Z71.3) 11/14/2023 Schizoaffective disorder (ICD-10 - F25.9) risk [...] End Date [employer] Medicare [address] [address] [place] [address] [phone] [id number] Joanie Hyde Self - patient is the insured 9 0 [employer] A[employer] Medicare [address] [address] [place] [address] [id number] Joanie Hyde Self - patient is the insured 3 MEDICARE PART A [address] [place] [address] [id number] Joanie Hyde Self - patient is the insured 8 8 MEDICAID [address] [place] [address] [id number] Joanie Hyde Self - patient is the insured 7 7 AARP Medicare Complete [address] [address] [place] [address] [id number] Joanie Hyde Self - patient is the insured 2 2 Medical (General) History Surgical History Surgery Date(Month/Year) Hospitalization History Reason Date(Month/Year) Left knee surg at [facility] 05/10/20 21
--- OUTSIDE RECORDS SUMMARY | 2024-09-17 16:24 | XMS_ITS ---
Author Organization [facility] Address [address] [place] [address] Care Team Providers Care Yarn Cleaner Name Role Phone Regis Amezcua Primary Care Provider [facility] Unav ailable Unavailable Allergies Allergen (clinical drug ingredient) Drug/Non Drug Allergy documented on EMR Reaction Allergy Type Onset Date Status Monosodium glutamate MSG (uncoded) Unknown Allergy Active Results Component Value Reference Range Notes CBC With Differential/Platel et* Reviewed date:06/04/2024 04:08:17 PM Interpretation: Performing Lab:[facility], [address] [facility], [place], Phone - [phone], Director - Hilario Notes/Report: WBC 3.7 3.4-10.8 [...] S Reviewed date:06/04/2024 04:07:13 PM Interpretation: Performing Lab:[facility] [place], [address] [facility], Phone - [phone], Director - [facility] Notes/Report: Valproic Acid (Depakote)(R),S 38 50-100 ug/m L Detection Limit = 4 <4 indicates None Detected . Toxicity may occur at levels of 100-500. Measurements of free unbound valproic acid may improve the assess- ment of clinical response. CMP 14 Comprehensive Metabol ic Panel* Reviewed date:06/04/2024 04:08:32 PM Interpretation: Performing Lab:[facility] [place], [address] [facility], Phone - [phone], Director - [facility] Notes/Report: Glucose 95 70-99 mg/dL BUN [...] twice a day for 90 days Active [place] 3 1000 MG 1 capsule Orally Onc [...] use: Nonsmoker Vital Signs Blood pressure systolic 122 mm Hg 05/21/20 24 Blood pressure diastolic 76 mm Hg 024 Heart Rate 99 /min 05/21/2024 Height 65 in 05/21/2024 Weight 153 lb 2 oz lbs 05/21/2024 BMI 25.48 kg/m2 05/21/2024 Oximetry 96 % 05/21/2024 Encounters Encounter Location Date Provider Diagnosis [address] [address] 05/21/2024 Regis Amezcua Nutritional counseli ng Z71.3 [...] Joanie LONG LouDOB:[birth year] (78 yo F)Acc No.[id number]:05/21/2024 Patient: Joanie LLAMAS Provider: Vicki Amezcua :1945 A ge:78 Y S ex:Female Date:05/21/2024 Address:[facility] [place] [address] [place], [id number] Check In:01:28 PM BOWLING ALLEY ATTENDANT Subjective: * Chief Complaints: * 3 Month [...] way N ot at all. S creening: Collier Suicide Severity Rating Scale (LF) D o [...] vaccine . Had left knee replacement at [facility] in 04/2021. Took Stelazine in past for many years in s. Was diagnosed with Schizoaffective disorder in past. Used to see Dr Doe at [facility]. Her first psych admission in [...] tablet with food Orally Once a day [place] 3 1000 MG Capsule 1 capsule Orally Once a day busPIRone HCl 5 MG Tablet 1 tablet Orally Twice a day risperiDONE 0.5 MG Tablet 1 tablet bedtime Orally twice a day Divalproex Sodium 250 MG Tablet Delayed Release 1 tablet Orally twice a day Taking Calcium Carbonate-Vitamin D 500-200 MG-UNIT Tablet 1 tablet with food Orally Once a day Taking [place] 3 1000 MG Capsule 1 capsule Orally [...] * Shey Lora 2024 1 1:12:22 AM BOWLING ALLEY ATTENDANT >Specimen collected, patient tolerated well.This lab was reviewed by Regis Amezcua on 06/04/2024 at 16:08 PM BOWLING ALLEY ATTENDANT ?LAB: Valproic Acid (Depakote)(R),S* Value Reference Range V alproic Acid (Depakote)(R),S 38 L 50-100 - ug /mL * Shey Lora 2024 1 1:12:22 AM BOWLING ALLEY ATTENDANT >Specimen collected, patient tolerated well.This lab was reviewed by Regis Amezcua on 06/04/2024 at 16:07 PM BOWLING ALLEY ATTENDANT ?LAB: CMP 14 Comprehensive Metabolic Panel Value [...] * Shey Lora 2024 1 1:12:22 AM BOWLING ALLEY ATTENDANT >Specimen collected, patient tolerated well.This lab was reviewed by Regis Amezcua on 06/04/2024 at 16:08 PM BOWLING ALLEY ATTENDANT Notes:risk & benefits discussed. Continue current treatment. [...] Procedure Codes: 3 008F BODY MASS INDEX [id number] MEDICAL NUTRITION, INDIV, [id number] TOBACCO [id number] [facility] VISIT ESTABLISHED PATIENT * Preventive Medicine: Counseling: C are goal follow-up plan: B MT management provided Vicki Hope Normal BMI Follow-up L ifestyle education regarding diet. * Follow Up: 3 Months * * Sign off status: Completed true * Provider: Vicki Amezcua Date: 1 Generated for Jose ofrbes/Rosa Maria/eTransmjose m on: 0 09/17/2024 04:24 PM BOWLING ALLEY ATTENDANT History and Physical Notes * HPI (History [...] vaccine . Had left knee replacement at [facility] in 04/2021. Took Stelazine in past for many years in . Was diagnosed with Schizoaffective disorder in past. Used to see Dr Doe at [facility]. Her first psych admission in 1980. Also [place] [address] [place]. Took Abilify,geodon in past. She showed me old Zoloft tablets prescribed [place] [address] Wagner. MSE--Alert,Ox3,mood pleasant. Affect is appropriate. Denies SI/HI. Denies manic or hypomanic sxs. Insight & judgement alright. Denies hopeless. Speech nl. Denies hallucination. Memory intact. Screening Collier Suicide Severity Rating Scale (LF) Do you [...]
== END 2024-09-17 16:55 | DRG 194 ==
LOC: ANHED 11:50 → ANH2MED 16:24 → ANH3MEDSUR 09-13 14:03 → ANH2MED 09-17 14:11
PROVIDERS: Internal Medicine Nephrology; Physician Assistant; Admitting Provider Internal Medicine; Emergency Provider Physician Assistant; PCP Family Medicine; Visit Provider Nurse Practitioner Gerontology
DX: J10.1 Influenza due to other identified influenza virus with other respiratory manifestations (principal); E87.1 Hypo-osmolality and hyponatremia; G25.9 Extrapyramidal and movement disorder, unspecified; J18.9 Pneumonia, unspecified organism; E78.5 Hyperlipidemia, unspecified; T43.595A Adverse effect of other antipsychotics and neuroleptics, initial encounter; F41.9 Anxiety disorder, unspecified; F39 Unspecified mood [affective] disorder; W06.XXXA Fall from bed, initial encounter; Z96.652 Presence of left artificial knee joint; Z20.822 Contact with and (suspected) exposure to COVID-19; Z89.421 Acquired absence of other right toe(s); Z11.52 Encounter for screening for COVID-19
CPT/HCPCS: 36415; 70450; 71045; 71046; 72170; 80048; 80053; 80069; 80164; 81001; 82533; 82550; 82570; 83735; 83883; 83930; 84100; 84146; 84155; 84165; 84295; 84300; 84443; 84540; 85025; 85027; 85610; 85730; 87635; 87637; 92526; 92610; 93005; 94640; 96361; 96374; 97110; 97116; 97161; 97165; 97530; 97535; 99285; A9270; G0378; J0696; J1200; J1940; J2405; J7030; J7040

== ENCOUNTER 2024-12-03 13:10 | Emergency (ER) | payer MEDICARE, SELFPAY ==
--- NOTE | ~2024-12-03 | CT_ITS ---
CT cervical spine wo con Ordering provider: Olamide Echols History: . fall . Comparison: None. Technique: CT of the cervical spine was performed without contrast. Sagittal and coronal reformatted images were also obtained and reviewed. Automated exposure control and iterative reconstruction bina hnique were employed. The dose-length product was 124.76 mGy-cm. FINDINGS: VERTEBRAE: Minimal anterolisthesis at the level of C4-C5 and C7-T1 with retrolisthesis at the level o f C5-C6. Otherwise, No subluxation or acute fracture. The occipital condyles are intact. DISC SPACES: Narrowing of the disc C3-C4, C5-C6 and C6-C7. Multilevel facet joint disease. Multilevel uncovertebral joint osteoarthritic changes. Narrowing of the right foramen at the level of C3-C4. Bilateral narrowing of the foramina at the leve l of C5-C6 and C6-C7 with moderate spinal canal stenosis. PARASPINOUS SOFT TISSUES: Bilateral atherosclerotic changes of the carotids. Calcified nodule in the left thyroid. Ultrasound evaluation advised. IMPRESSION: No acute osseous abnormality cervical spine. Anterolisthesis at the level of C4-C5 and C7-T1. Retrolisthesis at the level of C5-C6. Multilevel degenerative disc disease. Reviewed, dictated and finalized at location A.
--- NOTE | ~2024-12-03 | CT_ITS ---
CT OF right shoulder EXAMINATION: CT shoulder RT wo con DATE: 12/03/2024 16:25 INDICATION: Right shoulder trauma TECHNIQUE: Computed tomography (CT) of the right shoulder was performed without intravenous contrast. Automated exposure control and iterative reconstruction technique were employed. The dose-length pro duct was 285.73 mGy-cm. COMPARISON: X-ray right shoulder, same date FINDINGS: Limitations: None Bones: Osteopenia. Mildly comminuted fracture of the greater tuberosity, with minimal 2 mm lateral di straction of lateral and anterior fragments and minimal 2 mm inferior displacement of an inferolatera l fragment. Mild degenerative change at the AC joint and glenohumeral joint. There are no erosive or destructive bony lesions. Soft Tissues:The soft tissues appear within normal limits. No evidence of mass or fluid collection. Coronary artery calcifications. Fluid: No significant fluid within the joint capsule or surrounding bursal spaces. IMPRESSION: Mildly comminuted and minimally displaced right greater tuberosity fracture. Reviewed, dictated and finalized at location K.
--- NOTE | ~2024-12-03 | XR_ITS ---
EXAMINATION: XR elbow RT min 3V DATE: 12/03/2024 13:59 INDICATION: Right elbow pain post fall TECHNIQUE: Anteroposterior, 2 oblique and lateral views of the right elbow were obtained. COMPARISON: None. FINDINGS: Alignment is normal. No fracture or joint effusion. 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 Soft t issues are unremarkable. IMPRESSION: 1. 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 No joint effusion or acute osseous abnormality. Reviewed, dictated and finalized at location A. IMPRESSION: 1. 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 No joint effusion or acute osseou s abnormality.
--- NOTE | ~2024-12-03 | XR_ITS ---
EXAMINATION: XR shoulder RT min 2V DATE: 12/03/2024 13:59 INDICATION: Right shoulder pain and limited range of motion post fall TECHNIQUE: AP and transscapular Y views of the right shoulder were obtained. COMPARISON: None FINDINGS: Fracture of the proximal right humerus with separation and possibly 5 mm displacement of a fragment c omprising of the greater tuberosity. The humeral head appears shortened on the transcatheter Y view w hich could be due to angulation of the arm relative to the plane of imaging or more likely due to a p osteriorly impacted fracture at the surgical neck. No other fractures identified. Mild glenohumeral a nd acromioclavicular osteoarthritis. Visualized portion of the right lung are clear. Soft tissues are unremarkable. IMPRESSION: 1 part fracture of the proximal right humerus which appears likely comminuted with fracture planes at the surgical neck and the greater tuberosity. Reviewed, dictated and finalized at location A. IMPRESSION: 1 part fracture of the proximal right humerus which appears likely comminuted w [facility] fracture planes at the surgical neck and the greater tuberosity.
--- NOTE | ~2024-12-03 | CT_ITS ---
CT brain wo con Ordering provider: Olamide Echols PA-C History: 79 years Female with . fall . Comparison: None. Technique: CT of the head without contrast. Radiation reduction technique utilized.The dose-length pr oduct was 605.33 mGy-cm. FINDINGS: BRAIN PARENCHYMA AND CSF SPACES: Mild leukoaraiosis and diffuse cortical atrophy. Mild atheromatous d isease. No midline shift, mass effect or hemorrhage. The brain parenchyma and CSF spaces are otherwi se normal. VISUALIZED PARANASAL SINUSES: Left ethmoid sinus disease. Well aerated. MASTOIDS: Well aerated. BONES: The bones appear intact. SOFT TISSUES: Visualized nasopharynx is normal. Superficial soft tissues are normal. IMPRESSION: No acute intracranial findings. Reviewed, dictated and finalized at location A.
--- OUTSIDE RECORDS SUMMARY | 2024-12-03 13:30 | XMS_ITS | Clinical Summary ---
Author Organization [facility] Address [address] [place] [address] Care Team Providers Care Mine Laborer Name Role Phone Unavailable Primary Care Provider Unavailabl e Immunizations Immunization Administration Dates Next Due Covid-19, Mrna, Lnp-s, Pf, 30 Mcg/0.3 Ml Dose (P fizer) 07/28/2021 Social History Tobacco Use Types Packs/Day Years Used Date Smoking Tobacco: Never Assessed Comments Unknown Sex and Gender Information Value Date Recorded Sex Assigned at Not on file Legal Sex Female 12:47 PM DIRECTOR OF RETENTION Gender Identity Not on file Sexual Orientation Not on file Plan of Treatment Health Maintenance Due Date Last Done Comments Hepatitis C Virus (HCV) Screening 1945 TdaP Immunization 1945 Pneumococcal Immunization (5 0+ years) (1 of 1 - PCV) 1993 Zoster Immunization (1 of 2) 1993 Respiratory Syncytial Virus (RSV) Immunization (Adult) (1 - 1-dose 75+ series) 2018 Influenza Immunization (#1) 2024 SARS-COV-2 Immunization ( season) 2024 07/28/2021 Hepatitis B Immunization Aged Out No longer eligible based on patient's age to complete this topic Meningococcal Immunization (ACWY) Aged Out No longer eligible based on patient's age to complete this topic Rotavirus Immunization Aged Out No lo nger eligible based on patient's age to complete this topic
--- OUTSIDE RECORDS SUMMARY | 2024-12-03 13:30 | XMS_ITS | Clinical Summary ---
Author Organization [facility] Address [address] [facility] [place] [address] Care Team Providers Care Composition Mixer Name Role Phone Cristine Plunkett MD Primary Care Provider [phone] Source Comments [facility],non-[facility] Affiliates and Associated Physician Practices is amultiple site organization consisting of ambulatory clinics and hospital sitesin [place], [place], [place] and [place]. This disclosure is being madepursuant to the Care Everywhere program and may not contain all information available regarding this patient. Last updated 18.[facility] Jarvam Allergies Active Allergy Reactions Criticality Noted Date Comments Kdc:Yellow Dye+Cocaine+Sodium Benzoate Unknown 02/15/2021 Monosodium Glutamate Unknown 02/15/2021 Medications * Be aware that medications may not be up to date on this document. Alwaysverify current medications with the patient. busPIRone (BUSPAR) 5 MG tablet Take 5 [...] times daily Active Fluticasone Propionate (FLONASE NA) [place] into the nose as needed Active vitamin [...] Date Smoking Tobacco: Never Smokeless Tobacco: Never Comments Unknown Sex and Gender Information Value Date Recorded Sex Assigned at Not on file Legal Sex Female 5:59 AM GEAR CUTTER Gender Identity Not on file Sexual Orientation [...] (2 - 2023-2 5 season) 2024 07/28/2021 DEPRESSION SCREENING 07/24/2024 INFLUENZA VACCINE (Season Ended) 2025 HEPATITIS B VACCINE Aged Out No longe r eligible based on patient's age to complete this topic HIB VACCINE Aged Out No longer eligi ble based on patient's age to complete this topic HPV VACCINE Aged Out No longer eligi ble based on patient's age to complete this topic MENINGOCOCCAL (Group B) VACC INE SHARED DECISION-MAKING Aged Out No longer eligibl e based on patient's age to complete this topic MENINGOCOCCAL GROUPS A/C/Y/W VACCINE Aged Out No longer eligible b ased on patient's age to complete this topic Insurance MEDICARE [facility] Care Teams Composition Mixer Relationship Specialty Start Date End Date Cristine Plunkett MD [address] [place] [address] PCP - General 02/15/21
--- OUTSIDE RECORDS SUMMARY | 2024-12-03 13:30 | XMS_ITS ---
Author Organization [facility] Address [address] [place] [address] Care Team Providers Care Industrial Automation Specialist Name Role Phone Regis Amezcua Primary Care Provider [phone] [facility] Unav ailable Unavailable Allergies Allergen (clinical drug ingredient) Drug/Non Drug Allergy documented on EMR Reaction Allergy Type Onset Date Status Monosodium glutamate MSG (uncoded) Unknown Allergy Active REASON FOR VISIT labs Medications Medication SIG (Take, Route, Frequency, Duration) Notes Start Date End Date Status Magnesium Oxide 250 MG 1 tablet as neede d Orally Once a day Not-Taking [place] 3 1000 MG 1 capsule Orally Onc [...] Female Encounters Encounter Location Date Provider Diagnosis [address] [place] [address] 2024 Ozzy Seven Plan Of Treatment No Information Progress Notes * Joanie LONGOB:[birth year] (79 yo F)Acc No.[id number]:2024 UNLOCKED PROGRESS NOTE Patient: Joanie LLAMAS Provider: Vicki Amezcua :1945 A ge:79 Y S ex:Female Date:2024 Address: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 Labs. * Medical History: * Medications: T aking Calcium Carbonate-Vitamin D 500-200 MG-UNIT Tablet 1 tablet with food Orally Once a day , Taking [place] 3 1000 MG Capsule 1 capsule Orally [...] * Electronic signature of Regis Amezcua MD, [id number] on 12/03/2024 at 01:29 PM CDT Sign off status: Pending * Provider: Vicki Amezcua Date: 07/27/2023 Generated for Jose forbes/Rosa Maria/Bibiana on: 0 12/03/2024 01:29 PM CDT
--- OUTSIDE RECORDS SUMMARY | 2024-12-03 13:30 | XMS_ITS | Patient Health Record ---
Author Organization [facility] Address [address] [place] [address] Care Team Providers Care Bass Viol Repairer Name Role Phone MohsenRegis freitas Primary Care Provider [facility] Unav ailable Unavailable Allergies Allergen (clinical drug ingredient) Drug/Non Drug Allergy documented on EMR Reaction Allergy Type Onset Date Status Monosodium glutamate MSG (uncoded) Unknown Allergy Active Results Component Value Reference Range Notes CBC With Differential/Platel et* Reviewed date:06/04/2024 04:08:17 PM Interpretation: Performing Lab:[facility] [place], [address] [facility], [place], Phone - [phone], Director - Hilario Notes/Report: WBC 3.7 3.4-10.8 [...] S Reviewed date:06/04/2024 04:07:13 PM Interpretation: Performing Lab:[facility] [address] [facility], Phone - [phone], Director - [facility] Notes/Report: Valproic Acid (Depakote)(R),S 38 50-100 ug/m L Detection Limit = 4 <4 indicates None Detected . Toxicity may occur at levels of 100-500. Measurements of free unbound valproic acid may improve the assess- ment of clinical response. CMP 14 Comprehensive Metabol ic Panel* Reviewed date:06/04/2024 04:08:32 PM Interpretation: Performing Lab:[facility] [place], [address] [facility], Phone - [phone], Director - [facility] Notes/Report: Glucose 95 70-99 mg/dL BUN 14 [...] Duration) Notes Start Date End Date Status [place] 3 1000 MG 1 capsule Orally Onc e a day Active Magnesium Oxide 250 MG 1 tablet as neede d Orally Once a day Not-Taking risperiDONE 0.25 MG 1 tablet bedtime Ora lly Once a day for 90 days Active Divalproex Sodium 250 MG 1 tablet Orally twice a day for 90 days Active busPIRone HCl 5 MG 1 tablet Orally Twic e a day for 90 days Active Calcium [...] W/U Status Risk Notes Problem Schizoaffective disorder (50524204) Schizoaffective disorder (F25.9) Active confirmed Vital Signs Heart Rate 104 /min 11/05/2024 Respiratory Rate 16 /min 11/05/2024 Blood pressure diastolic 84 mm Hg 11/05/2024 Oximetry 98 % 11/05/2024 Height 65 in 11/05/2024 Blood pressure systolic 122 mm Hg 11/05/2024 Weight 148.6 lbs 11/05/2024 BMI 24.73 kg/m2 11/05/2024 Encounters Encounter Location Date Provider Diagnosis [address] [address] 2024 Arif Habib [address] [address] 02/20/2024 Arif Habib Schizoaffective diso rder F25.[address] [address] 05/21/2024 Arif Habib Nutritional counseli ng Z71.3 and Schizoaffective disorder F25.[address] [address] 08/13/2024 Arif Habib Nutritional counseli ng Z71.3 and Schizoaffective disorder F25.[address] [place] [address] 11/05/2024 Regis Amezcua Nutritional counseli ng Z71.3 and [...] Z71.3) 08/13/2024 Nutritional counseling (ICD-10 - Z71.3) 11/05/2024 Nutritional counseling (ICD-10 - Z71.3) 05/21/2024 Schizoaffective disorder (ICD-10 - F25.9) risk & benefits discussed. Continue current treatment. Repeat depakote level, CBC, CMPDepakote level was 45 on 08/24/23, was 42.0 on 12/02/22, 40.6 was on 04/25/22 . Was 36 on 05/06/23. Has regular follow up with PCP. No involuntary movement reported. 11/05/2024 Schizoaffective disorder (ICD-10 - F25.9) risk & benefits discussed. Last time Risperdal was lowered to 0.25 mg HS due to gait issues. Now she is completely off Risperdal. Continue other treatment with depakote, Buspar. Depakote [...] End Date [employer] A[employer] Medicare [address] [address] [place] [address] [id number] Joanie Hyde Self - patient is the insured 3 MEDICARE PART A [address] [place] [address] [id number] Joanie Hyde Self - patient is the insured 8 8 AARP Medicare Complete [address] [address] [place] [address] [id number] Joanie Hyde Self - patient is the insured 2 2 MEDICAID [address] [facility] [place] [address] [id number] Joanie Hyde Self - patient is the insured 7 7 [facility] Medicare [address] [address] [place] [address] [phone] [id number] Joanie Hyde Self - patient is the insured 9 0 Medical (General) History Surgical History Surgery Date(Month/Year) Hospitalization History Reason Date(Month/Year) Left knee surg at [facility] 05/10/20 21
[2024-12-03 13:59] VITALS: BP 139/44; PULSE 78; RESP 18; TEMP 36.6; O2SAT 99
[2024-12-03] MEDS: HYDROcodone/acetaminophen (*CRX) 5-325 MG TABLET 1 TAB PO (15:14)
--- OUTSIDE RECORDS SUMMARY | 2024-12-03 15:16 | XMS_ITS | Clinical Summary ---
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
--- OUTSIDE RECORDS SUMMARY | 2024-12-03 15:16 | XMS_ITS | Clinical Summary ---
Author Organization [facility] Address [address] [place] [address] Care Team Providers Care Film Writer Name Role Phone Cristine Plunkett MD Primary Care Provider [phone] [facility],non-[facility] Affiliates and Associated Physician Practices is amultiple site organization consisting of ambulatory clinics and hospital sitesin [place], [place], [place] and [place]. This disclosure is being madepursuant to the Care Everywhere program and may not contain all information available regarding this patient. Last updated 18.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
--- NOTE | 2024-12-03 16:22 | ED.UPPEXIN ---
HPI - Extremity Injury (Upper) General Chief Complaint: Extremity Injury, Upper Stated Complaint: fall R shoulder/elbow pain Time Seen by Provider: 12/03/24 14:56 History of Present Illness HPI narrative: Patient is an 79-year-old female who presents ER after a fall. She was sitting on shower chair and was trying to put on her depends when she fell off to the right side. She landed on her right arm causing pain at the shoulder and elbow. She hit her head but did not lose consciousness. She is not on any blood thinners. No numbness or tingling to the arm but has referred pain to her shoulder when she tries to move at the elbow or fingers. Pain is worse when moving the arm and better at rest. Related Data Home Medications ?Medication ?Instructions ?Recorded ?Confirmed ?Last Taken ?Type divalproex 250 mg tablet,delayed 250 mg PO Q12H 09/16/19 10/10/24 05/10/21 04:10 History release multivitamin with minerals 1 tablet PO DAILY 09/16/19 10/10/24 09/11/24 History (Multiple Vitamin-Minerals tablet) omega 3-zbk-aws-fish oil 1,000 mg 1 cap PO DAILY 09/11/24 10/10/24 Unknown History (120 mg-180 mg) capsule (Fish Oil) buspirone 5 mg tablet 5 mg PO BID 10/10/24 10/10/24 Unknown History ciclopirox 0.77 % topical cream 1 applic topical ONCE 10/10/24 10/10/24 Unknown History Allergies Allergy/AdvReac Type Severity Reaction Status Date / Time Iodinated Contrast Media Allergy Unknown Hives Verified 12/03/24 14:08 iohexol (From contrast - CT, Allergy Unknown Hives Verified 12/03/24 14:08 X-RAY) risperidone AdvReac Severe Extrapyrami Verified 12/03/24 14:08 mary beth Review of Systems Review of Systems: All systems reviewed & are unremarkable except as noted in HPI and below Constitutional: Constitutional: Reports no additional constitutional complaints Cardiovascular: Cardiovascular: Reports no additional cardiovascular complaints Respiratory: Respiratory: Reports no additional respiratory complaints Musculoskeletal: Musculoskeletal: Reports no additional musculoskeletal complaints [facility] Past Medical History Medical History Acute psychosis Bilateral cataracts Anxiety Dyslipidemia Mood disorder Surgical History Surgical History History of left knee replacement History of toe surgery wart removal-right foot 5th toe History of hysterectomy Family History Family History Mother Family history of Parkinson's disease Sibling Patient's sister is in good health Family history of throat cancer, Onset Age: 39 Patient's brother is Other Family history of malignant neoplasm of breast Family history of malignant neoplasm of breast in first degree relative Social History Social History Social History: Surrogate medical decision maker: Antolin Hamilton, spouse ([phone]). Code status: Full code. Smoking status: Never smoker Second hand tobacco smoke exposure: No Alcohol intake: never Substance use: never Substance use type: does not use Do You Feel Safe in your Home?: Yes Lack of Transportation: No Lack of Food: Never True Current Housing: I Have Housing Concerned About Future Housing: No Difficulty Paying Gas/Electric Bills: No Difficulty Paying for Meds: No Currently Unemployed: No Education: Master's Degree or Higher Difficulty w/ Childcare or Family Care: No Living arrangements: with family Occupation/Education: retired Spiritual care concerns: No Agree to blood products: Yes Exam Narrative: GENERAL: Well-appearing, well-nourished, and in no acute distress. HEAD: Normocephalic, atraumatic. ENT: Mucous membranes moist. CHEST: Clear to auscultation. No respiratory distress. HEART: Regular rate and rhythm. Normal peripheral pulses. ABDOMEN: Soft, nontender, nondistended. EXTREMITIES: Right upper extremity tenderness at the right shoulder with limited range of motion due to pain. Mild effusion. No tenderness at the elbow or hand. No skin breakdown. SKIN: Warm, dry, no rash. NEURO: Alert and oriented x3. PSYCH: Normal mood and affect. Course Course Emergency Course: Dr. Armijo evaluated the patient at the bedside. She has been placed in a shoulder immobilizer. She may be discharged after a noncontrast CT of the shoulders performed. Will prescribe pain medication for home and she will follow-up in his clinic. Vital Signs Vital signs: Vital Signs Temperature 97.9 F 12/03/24 13:59 Pulse Rate 78 12/03/24 13:59 Respiratory Rate 18 12/03/24 13:59 Blood Pressure 139/44 L 12/03/24 13:59 Pulse Oximetry 99 12/03/24 13:59 Temperature 97.9 F 12/03/24 13:59 Pulse Rate 78 12/03/24 13:59 Respiratory Rate 18 12/03/24 13:59 Blood Pressure 139/44 L 12/03/24 13:59 Pulse Oximetry 99 12/03/24 13:59 MDM - Extremity Injury (Upper) Imaging Data Radiologist's impression: ITS Impressions Head CT 12/03/24 13:37 IMPRESSION: No acute intracranial findings. Cervical Spine CT 12/03/24 13:51 IMPRESSION: No acute osseous abnormality cervical spine. Anterolisthesis at the level of C4-C5 and C7-T1. Retrolisthesis at the level of C5-C6. Multilevel degenerative disc disease. Elbow X-Ray 12/03/24 14:08 IMPRESSION: 1. 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 No joint effusion or acute osseous abnormality. Shoulder X-Ray 12/03/24 14:12 IMPRESSION: 1 part fracture of the proximal right humerus which appears likely comminuted with fracture planes at the surgical neck and the greater tuberosity. Discharge Plan Discharge Clinical Impression: Fracture of proximal humerus Patient Disposition: Home Condition: Stable Instructions: Proximal Humerus Fracture (ED), Shoulder Immobilizer (ED) Additional Instructions: Return ER if you suffered a new injury, you develop new numbness/weakness in her arm, or you have additional concerns. Wear shoulder immobilizer to help reduce pain. Take Tylenol with hydrocodone to decrease your pain as well. Patient Language: Gambian Prescriptions: New hydrocodone-acetaminophen 5-325 mg tablet 1 tablet PO Q6H PRN (Reason: pain) Qty: 16 0RF No Action divalproex 250 mg tablet,delayed release (DR/EC) 250 mg PO Q12H multivitamin with minerals [Multiple Vitamin-Minerals] Tablet 1 tablet PO DAILY ciclopirox 0.77 % cream 1 applic topical ONCE Rx Instructions: apply thin layer once a day before bedtime buspirone 5 mg tablet 5 mg PO BID omega 7-dyt-kqt-fish oil [Fish Oil] 1,000 (120-180) mg capsule 1 cap PO DAILY Follow-up/Referrals: Cristine Plunkett MD [Primary Care Provider] - Adams Armijo MD [Physician] - 1 Week
[2024-12-03 16:52] VITALS: BP 136/57; PULSE 80; RESP 18; O2SAT 99
== END 2024-12-03 16:56 | disposition home or self-care (01) ==
PROVIDERS: Emergency Provider Emergency Medicine; PCP Family Medicine
DX: S42.211A Unspecified displaced fracture of surgical neck of right humerus, initial encounter for closed fracture (principal); F41.9 Anxiety disorder, unspecified; E78.5 Hyperlipidemia, unspecified; W07.XXXA Fall from chair, initial encounter
CPT/HCPCS: 70450; 72125; 73030; 73080; 73200; 99284; A4565; A9270

== ENCOUNTER 2025-05-22 11:28 | Emergency (ER) | payer MEDICARE, SELFPAY ==
--- OUTSIDE RECORDS SUMMARY | 2024-02-06 09:00 | XMS_ITS ---
Author Organization [facility] Address [address] [place] [address] Care Team Providers Care Farm Rancher Name Role Phone Regis Amezcua Primary Care Provider [facility] Unav ailable Unavailable REASON FOR VISIT Psych F/U Social History Sex Assigned At : Social History Observation Description Sex Assigned At Female Encounters Encounter Location Date Provider Diagnosis [place] [address] [place] [address] 02/06/2024 Regis Amezcua Plan Of Treatment Next Appt Details Provider Name:Regis Amezcua, 02:00:00 PM, [address] [facility] , [place], [address], Progress Notes * Joanie LONG LouDOB:[birth year] (79 yo F)Acc No.[id number]:02/06/2024 UNLOCKED PROGRESS NOTE Patient: Joanie LLAMAS Provider: Vicki Amezcua :1945 A ge:78 Y S ex:Female Date:02/06/2024 Address:[facility] [address], [id number] Subjective: * Chief Complaints: * 1 . Psych F/U. * Medical History: Objective: * Vitals: Assessment: Plan: * Treatment: * * Electronic signature of Regis Amezcua MD, [id number] on 05/22/2025 at 12:42 PM CDT Sign off status: Pending * Provider: Vicki Amezcua Date: 0 02/06/2024 Generated for Jose forbes/Rosa Maria/Bibiana on: 1 12:42 PM CDT
--- OUTSIDE RECORDS SUMMARY | 2024-02-13 08:40 | XMS_ITS ---
Author Organization [facility] Address [address] [place] [address] Care Team Providers Care Undercoat Sprayer Name Role Phone Regis Amezcua Primary Care Provider [facility] Unav ailable Unavailable REASON FOR VISIT LM change to PHONE-mlr psych f/u Social History Sex Assigned At : Social History Observation Description Sex Assigned At Female Encounters Encounter Location Date Provider Diagnosis [facility] [address] [place] [address] 02/13/2024 Regis Amezcua Plan Of Treatment Next Appt Details Provider Name:Regis Amezcua, 02:00:00 PM, [address] [facility] [address] [address] [address], [place], [address], Progress Notes * Joanie LONG LouDOB:[birth year] (79 yo F)Acc No.[id number]:02/13/2024 UNLOCKED PROGRESS NOTE Patient: Joanie LLAMAS Provider: Vicki Amezcua :1945 A ge:78 Y S ex:Female Date:02/13/2024 Address:[address], [id number] Subjective: * Chief Complaints: * 1 . LM change to PHONE-mlr psych f/u. * Medical History: Objective: * Vitals: Assessment: Plan: * Treatment: * * Electronic signature of Regis Amezcua MD, [id number] on 05/22/2025 at 12:42 PM CDT Sign off status: Pending * Provider: Vicki Connollyib Date: 0 02/13/2024 Generated for Jose Brown/Bibiana on: 1 12:42 PM CDT
--- OUTSIDE RECORDS SUMMARY | 2024-05-27 03:20 | XMS_ITS ---
Author Organization [facility] Address [address] [place] [address] Care Team Providers Care Door Closer Mechanic Name Role Phone Regis Amezcua Primary Care Provider [phone] [facility] Unav ailable Unavailable Allergies Allergen (clinical drug ingredient) Drug/Non Drug Allergy documented on EMR Reaction Allergy Type Onset Date Status Monosodium glutamate MSG (uncoded) Unknown Allergy Active REASON FOR VISIT labs Medications Medication SIG (Take, Route, Frequency, Duration) Notes Start Date End Date Status Magnesium Oxide 250 MG 1 tablet as neede d Orally Once a day Not-Taking [place] 3 1000 MG 1 capsule Orally Onc e a day Active busPIRone HCl 5 MG 1 tablet Orally Twic e a day; Duration: 90 days Active risperiDONE 0.5 MG 1 tablet bedtime Ora lly twice a day; Duration: 90 days Active Calcium Carbonate-Vitamin D 500-200 MG-UNIT 1 tablet with food Orally Once a day Active Divalproex Sodium 250 MG 1 tablet Orally twice a day; Duration: 90 days Active Social History Sex Assigned At : Social History Observation Description Sex Assigned At Female Encounters Encounter Location Date Provider Diagnosis [facility] [address] [place] [address] 2024 Regis Amezcua Plan Of Treatment Next Appt Details Provider Name:Regis Amezcua, 02:00:00 PM, [address] [place], [address], Progress Notes * Joanie LONGOB:[birth year] (79 yo F)Acc No.[id number]:2024 UNLOCKED PROGRESS NOTE Patient: Joanie LLAMAS Provider: Vicki Amezcua :1945 A ge:79 Y S ex:Female Date:2024 Address:[facility] [address] [place], [place] Check In:08:06 AM REPLANTER Subjective: * Chief Complaints: * 1 . Labs. * Medical History: * Medications: T aking Calcium Carbonate-Vitamin D 500-200 MG-UNIT Tablet 1 tablet with food Orally Once a day , Taking [place] 3 1000 MG Capsule 1 capsule Orally Once a day , Taking busPIRone HCl 5 MG Tablet 1 tablet Orally Twice a day , Taking risperiDONE 0.5 MG Tablet 1 tablet bedtime Orally twice a day , Taking Divalproex Sodium 250 MG Tablet Delayed Release 1 tablet Orally twice a day , Not-Taking Magnesium Oxide 250 MG Tablet 1 tablet as needed Orally Once a day * Allergies: M SG. Objective: * Vitals: Assessment: Plan: * Treatment: * * Electronic signature of Regis Amezcua MD, [id number] on 05/22/2025 at 12:42 PM CDT Sign off status: Pending * Provider: Vicki Amezcua Date: 07/27/2023 Generated for Jose forbes/Rosa Maria/Bibiana on: 12:42 PM CDT
--- NOTE | ~2025-05-22 | XR_ITS ---
EXAMINATION: XR chest 2V 05/22/2025 12:38 INDICATION: Chest pain TECHNIQUE:Frontal and lateral images of the chest were obtained. COMPARISON: 09/11/2024 FINDINGS: Heart is mildly enlarged. No pneumothorax. No pleural effusion. No free air the diaphragm. No focal pulmonary consolidation. IMPRESSION: 1: NO ACUTE CARDIOPULMONARY DISEASE. Reviewed, dictated and finalized at location Q.
--- NOTE | 2025-05-22 11:29 | ECG_ITS ---
Test Date: 2025-05-22 11:36:21 Measurements Intervals [place] Rate: 69 P: 38 MD: 171 QRS: 10 QRSD: 81 T: 43 QT: 397 QTc: 426 Interpretive Statements SINUS RHYTHM VOLTAGE CRITERIA FOR LVH BASELINE ARTIFACT- I, II, III, AVR, AVL, AVF, V4-V6 BORDERLINE ECG Compared to ECG 09/11/2024 12:01:04 No significant changes Electronically Signed On 05-22-2025 11:38:42 CDT by Jason Maldonado D.O.
[2025-05-22 11:35] VITALS: BP 150/55; PULSE 63; RESP 18; TEMP 36.4; O2SAT 100
[2025-05-22 11:46] LABS: Hematocrit 39.5 % (37.0-47.0); Hemoglobin 12.8 g/dL (12.0-15.0); Immature Granulocyte Percent A 1.0 % (0-0.5); Lymphocytes Absolute Auto 1.85 K/mm3 (0.9-3.2); Mean Corpuscular HGB Conc 32.4 g/dl (32-36); Mean Corpuscular Hemoglobin 30.5 pg (26-34); Mean Corpuscular Volume 94.3 fl (80-100); Nucleated Red Blood Cells Absolute Auto 0.000 K/mm3 (0.0-0.012); Nucleated Red Blood Cells Perc 0.0 % (0.0-0.2); Platelet Count Result 229 k/mm3 (150-375); Red Blood Count 4.19 M/mm3 (4.2-5.4); White Blood Count 4.1 K/mm3 (4.5-10.0)
[2025-05-22 11:58] LABS: Alanine Aminotransferase 19 U/L (6-35); Albumin Level 4.5 g/dL (3.5-5.1); Alkaline Phosphatase 81 U/L (38-126); Anion Gap 9 mmol/L (4-12); Aspartate Amino Transferase 30 U/L (14-36); Bilirubin,Total 0.5 mg/dL (0.2-1.3); Blood Urea Nitrogen 14 mg/dL (7-17); Calcium 9.4 mg/dL (8.4-10.2); Carbon Dioxide 25 mmol/L (22-30); Chloride 99 mmol/L (98-107); Estimated CRCL calculation 41 ml/min; Estimated Glomerular Filt Rate > 60; Glucose 99 mg/dL (65-110); INR 1.0; Lipase 107 U/L (23-300); Partial Thromboplastin Time 31.6 Seconds (22.3-36.8); Potassium 4.0 mmol/L (3.4-5.0); Prothrombin Time 12.9 Seconds (11.1-14.7); Sodium 133 mmol/L (137-145); Total Protein 7.7 g/dL (6.3-8.2)
[2025-05-22 12:08] LABS: Troponin I < 0.012 ng/mL (0.000-0.034)
--- OUTSIDE RECORDS SUMMARY | 2025-05-22 12:42 | XMS_ITS | Clinical Summary ---
Author Organization [facility] Address [address] [place] [address] Care Team Providers Care Primary Substance Abuse Counselor Name Role Phone Cristine Plunkett MD Primary Care Provider [phone] Source Comments [facility],non-[facility] Affiliates and Associated Physician Practices is amultiple site organization consisting of ambulatory clinics and hospital sitesin [place], [place], [place] and [place]. This disclosure is being madepursuant to the Care Everywhere program and may not contain all information available regarding this patient. 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
--- OUTSIDE RECORDS SUMMARY | 2025-05-22 12:43 | XMS_ITS | Clinical Summary ---
Author Organization [facility] Address [address] [place] [phone] Care Team Providers Care Relocation Manager Name Role Phone Cristine Plunkett MD Primary Care Provider [phone] Allergies Active Allergy Reactions Criticality Noted Date Comments Monosodium Glutamate Unknown 02/15/2021 Medications risperiDONE (RisperDAL) 0.5 mg tablet Take 1 tablet (0.5 mg total) by mouth 2 (two) times a day 01/11/[address] (DEPAKOTE) 250 mg EC tablet Take 1 tablet (250 mg total) by mouth 2 (two) times a day 02/06/2018 Active calcium citrate (CALCITRATE) 950 mg (200 mg of elemental calcium) tablet Take 125 mg by mouth daily Active busPIRone (BUSPAR) 5 mg tablet Take 1 tablet (5 mg total) by mouth 2 (two) times a day 08/16/2017 Active biotin 5 mg tablet Take 5,000 mcg by mouth daily Active Active Problems No known active problems Encounters Date Type Department Care Team Description 04/17/2025 11:00 AM CDT Office Visit [facility] Neurology [address] [place] [phone] Filippo Lowery Si, MD Imbalance (Primary Dx); 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 Social History Tobacco Use Types Packs/Day Years Used Date Smoking Tobacco: Never Assessed Comments Unknown Sex and Gender Information Value Date Recorded Sex Assigned at Not on file Legal Sex Female 10:44 AM CDT Gender Identity Not on file Sexual Orientation Not on file Last Filed Vital Signs Vital Sign Reading Time Taken Comments Blood Pressure 116/60 04/17/2025 10:31 AM CDT Pulse 65 04/17/2025 10:31 AM CDT Temperature - - Respiratory Rate - - Oxygen Saturation - - Inhaled Oxygen Concentration - - Weight 68 kg (150 lb) 04/17/2025 10:31 AM CDT Height 157.5 cm (5' 2) 04/17/2025 10:31 AM CDT Body Mass Index 27.44 04/17/2025 10:31 AM CDT Plan of Treatment Health Maintenance Due Date Last Done Comments Depression Screening 1943 Fall Risk Assessment 1943 Osteoporosis Screening-Bone Density Scan 1943 Hepatitis B Screening 1961 Zoster Vaccine (1 of 2) 1993 Well Visit 65+ 2008 Covid-19 Vaccine ( season) 2025 07/28/2021, 10/09/2020, 09/11/2020 Influenza Vaccine (#1) 2025 , 04/30/2021, 05/01/2020 DTaP/Tdap/Td Vaccine (3 - Td or Tdap) 12/07/2030 12/07/2020, 08/10/2010, 12/14/1992 Pneumococcal vaccine 65+ Completed 04/30/2021, 09/23 Insurance MEDICARE ADVANTAGE Care Teams Relocation Manager Relationship Specialty Start Date End Date Cristine Plunkett MD PCP - General Family Medicine 02/14/25
--- OUTSIDE RECORDS SUMMARY | 2025-05-22 12:43 | XMS_ITS | Patient Health Record ---
Author Organization [facility] Address [address] [place] [address] Care Team Providers Care Tender Coordinator Name Role Phone Regis Amezcua Primary Care Provider [facility] Unav ailable Unavailable Allergies Allergen (clinical drug ingredient) Drug/Non Drug Allergy documented on EMR Reaction Allergy Type Onset Date Status Monosodium glutamate MSG (uncoded) Unknown Allergy Active Reason For Referral No Information Medications Medication SIG (Take, Route, Frequency, Duration) Notes Start Date End Date Status [place] 3 1000 MG 1 capsule Orally Onc e a day Active Magnesium Oxide 250 MG 1 tablet as neede d Orally Once a day Not-Taking Calcium Carbonate-Vitamin D 500-200 MG-UNIT 1 tablet with food Orally Once a day Active Divalproex Sodium ER 250 MG 1 tablet at bedtime Orally Once a day; Duration: 90 days Active busPIRone HCl 5 MG 1 tablet Orally Once a day; Duration: 90 days Active risperiDONE 0.25 MG 1 tablet bedtime Ora lly Once a day; Duration: 90 days Active Social History Tobacco Use: [...] W/U Status Risk Notes Problem Schizoaffective disorder (60268828) Schizoaffective disorder (F25.9) Active confirmed Problem Overweight (562056001) Over weight (E66.3) Active confirmed Vital Signs Heart Rate 65 /min 04/22/2025 Respiratory Rate 16 /min 04/22/2025 Blood pressure diastolic 70 mm Hg 04/22/2025 Oximetry 98 % 04/22/2025 Height 65in in 04/22/2025 Blood pressure systolic 116 mm Hg 04/22/2025 Weight 150.8lbs lbs 04/22/2025 BMI 25.09 kg/m2 04/22/2025 Encounters Encounter Location Date Provider Diagnosis [address] [address] 2024 Arif Habib [address] [address] 08/13/2024 Arif Habib Nutritional counseli ng Z71.3 and Schizoaffective disorder F25.[address] [address] 11/05/2024 Arif Habib Nutritional counseli ng Z71.3 and Schizoaffective disorder F25.[address] [address] 01/28/2025 Arif Habib Over weight E66.3 ; Nutritional counseling Z71.3 and Schizoaffective disorder F25.[address] [address] 04/22/2025 Arif Habib Over weight E66.3 ; Nutritional counseling Z71.3 and Schizoaffective disorder F25.[address] [address] 04/14/2025 Arif Habib Assessments Encounter Date Diagnosis (ICD Code) Assessment Notes Treatment Notes Treatment Clinical Notes Section Notes 08/13/2024 Nutritional counseling (ICD-10 - Z71.3) 04/22/2025 Over weight (ICD-10 - E66.3) 01/28/2025 Over weight (ICD-10 - E66.3) 11/05/2024 Nutritional counseling (ICD-10 - Z71.3) 01/28/2025 Nutritional counseling (ICD-10 - Z71.3) 11/05/2024 Schizoaffective disorder (ICD-10 - F25.9) risk [...] up with PCP. No involuntary movement reported. 04/22/2025 Nutritional counseling (ICD-10 - Z71.3) 08/13/2024 Schizoaffective disorder (ICD-10 - F25.9) risk & benefits discussed. Lower Risperdal 0.25 mg HS due to gait issues. Continue other treatment with depakote, Buspar. Depakote level was 38 on 05/27/24. 45 on 08/24/23, was 42.0 on 12/02/22, 40.6 was on 04/25/22 . Was 36 on 05/06/23. Has regular follow up with PCP. No involuntary movement reported. 04/22/2025 Schizoaffective disorder (ICD-10 - F25.9) risk & benefits discussed. Depakote to ER was lowered 250 mg daily because pt and her think causing gait issues. Previously Risperdal was lowered to 0.25 mg HS and then stopped completely due to gait issues. Now she is completely off Risperdal. But still having gait issues. Depakote level was 38 on 05/27/24. 45 on 08/24/23, was 42.0 on 12/02/22, 40.6 was on 04/25/22 . Was 36 on 05/06/23. Has regular follow up with PCP. No involuntary movement reported. 01/28/2025 Schizoaffective disorder (ICD-10 - F25.9) risk & benefits discussed. Lower Depakote to ER 250 mg daily because pt and her think causing gait issues. Previously Risperdal was lowered to 0.25 mg HS and then stopped completely due to gait issues. Now she is completely off Risperdal. But still having gait issues. Depakote level was 38 on 05/27/24. 45 on 08/24/23, was 42.0 on 12/02/22, 40.6 was on 04/25/22 . Was 36 on 05/06/23. Has regular follow up with PCP. No involuntary movement reported. Plan Of Treatment Pending Test Test Name Order Date CBC With Differential/Platelet* 09/24/19 17 Valproic Acid (Depakote)(R),S 09/23/2016 CMP13 09/23/2016 Next Appt Details Provider Name:Regis Amezcua, 02:00:00 PM, [address] [place], [address], Insurance Providers Payer Name Payer Address Payer Phone Subscriber Number Group Number Insured Name Patient Relationship to Insured Coverage Start Date Coverage End Date [facility] Medicare [address] [address] [place] [address] [id number] Joanie Hyde Self - patient is the insured 3 MEDICARE PART A [address] [place] [address] [id number] Joanie Hyde Self - patient is the insured 8 8 AARP Medicare Complete [address] [address] [place] [address] [id number] Joanie Hyde Self - patient is the insured 2 2 MEDICAID [address] [address] [id number] Joanie Hyde Self - patient is the insured 7 7 [facility] Medicare [address] [address] [place] [address] [id number] Joanie Hyde Self - patient is the insured 9 0 Medical (General) History Surgical History Surgery Date(Month/Year) Hospitalization History Reason Date(Month/Year) Left knee surg at [facility] 05/10/20 21
[2025-05-22 12:45] VITALS: BP 149/55; PULSE 71; RESP 20; O2SAT 99
[2025-05-22 12:48] VITALS: PULSE 70
--- OUTSIDE RECORDS SUMMARY | 2025-05-22 13:25 | XMS_ITS | Clinical Summary ---
Author Organization [facility] Address [address] [address] Care Team Providers Care Power Transformer Repairer Name Role Phone Cristine Plunkett MD Primary Care Provider [phone] [facility],non-[facility] medical center Affiliates and Associated Physician Practices is amultiple site organization consisting of ambulatory clinics and hospital sitesin [place], [place], [place] and [place]. This disclosure is being madepursuant to the Care Everywhere program and may not contain all information available regarding this patient. 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
--- OUTSIDE RECORDS SUMMARY | 2025-05-22 13:25 | XMS_ITS | Clinical Summary ---
Author Organization [facility] Address [address] [place] [address] Care Team Providers Care Bowling Pin Refinisher Name Role Phone Cristine Plunkett MD Primary Care Provider Allergies Active Allergy Reactions Criticality Noted Date [...] Description 04/17/2025 11:00 AM CDT Office Visit [facility] Neurology [address] [place] [phone] Filippo Lowery Si, MD Imbalance (Primary [...] 65+ Completed 04/30/2021, 09/23 [place] [address] Care Teams Bowling Pin Refinisher Relationship Specialty Start Date End Date Cristine Plunkett MD PCP - General Family Medicine 02/14/25
[2025-05-22 13:48] VITALS: BP 131/72; PULSE 61; RESP 18; O2SAT 100
[2025-05-22 14:05] LABS: Add Urine Microscopic? YES; Appearance Urine Cloudy (Clear); Glucose Urine UA Negative (Negative); Leukocyte Esterase Ur Negative LEU/UL (Negative); Nitrate Urine Negative (Negative); Non Pathogenic Casts 0-2; Specific Grav Ur 1.012 (1.001-1.035)
--- NOTE | 2025-05-22 14:18 | ECG_ITS ---
Test Date: 2025-05-22 14:37:11 Measurements Intervals [place] Rate: 62 P: 21 IN: 167 QRS: 9 QRSD: 83 T: 20 QT: 436 QTc: 444 Interpretive Statements SINUS RHYTHM CONSIDER RIGHT VENTRICULAR CONDUCTION DELAY LEFT VENTRICULAR HYPERTROPHY BASELINE WANDER- I, III, AVL, AVF BORDERLINE ECG Compared to ECG 05/22/2025 11:36:21 NO SIGNIFICANT CHANGE Electronically Signed On 05-22-2025 14:57:18 CDT by Jason Maldonado D.O.
[2025-05-22 15:04] LABS: Troponin I < 0.012 ng/mL (0.000-0.034)
--- NOTE | 2025-05-22 15:45 | ED_ITS ---
HPI - Chest Pain General Chief Complaint: Chest Pain Stated Complaint: Chest pain x 3 nights Time Seen by Provider: 05/22/25 12:40 Source: patient Mode of arrival: ambulatory Limitations: no limitations History of Present Illness HPI narrative: 79-year-old with a history of mood disorder presents to the ER with the complaints left-sided chest pain for last 3 days. Patient states it is constant in nature and nonradiating. Patient states that she called her sister was 5 years younger to her has Wellens syndrome and she thinks she has the same condition. No previous history of CAD. Denies any cough shortness of breath. Onset (ago): day(s) (3) Timing of current episode: constant Pain location: left chest Pain radiation: none Quality: aching Relieving factors: nothing Exacerbating factors: nothing Related Data Home Medications ?Medication ?Instructions ?Recorded ?Confirmed ?Last Taken ?Type multivitamin with minerals 1 tablet PO DAILY 09/16/19 04/02/25 09/11/24 History (Multiple Vitamin-Minerals tablet) omega 7-kbg-cby-fish oil 1,000 mg 1 cap PO DAILY 09/1104/02/25 Unknown History (120 mg-180 mg) capsule (Fish Oil) ciclopirox 0.77 % topical cream 1 applic topical ONCE 10/10/24 04/02/25 Unknown History buspirone 5 mg tablet 5 mg PO ONCE 02/03/25 Unknown History divalproex 250 mg tablet,delayed 250 mg PO ONCE 04/02/25 Unknown History release Allergies Allergy/AdvReac Type Severity Reaction Status Date / Time Iodinated Contrast Media Allergy Unknown Hives Verified 05/22/25 12:44 iohexol (From contrast - CT, Allergy Unknown Hives Verified 05/22/25 12:44 X-RAY) risperidone AdvReac Severe Extrapyrami Verified 05/22/25 12:44 mary beth Review of Systems 2 Review of Systems: All systems reviewed & are unremarkable except as noted in HPI and below Constitutional: Constitutional: Reports no additional constitutional complaints Eyes: Eyes: Reports no additional eye complaints ENT: Reports system reviewed and no additional complaints, except as documented Cardiovascular: Cardiovascular: Reports as per HPI Respiratory: Respiratory: Reports no additional respiratory complaints Gastrointestinal: Gastrointestinal: Reports no additional gastrointestinal complaints Musculoskeletal: Musculoskeletal: Reports no additional musculoskeletal complaints [facility] Past Medical History Medical History Hypothyroidism in adult Broken shoulder Acute psychosis Bilateral cataracts Anxiety Dyslipidemia Mood disorder Surgical History Surgical History History of left knee replacement History of toe surgery wart removal-right foot 5th toe History of hysterectomy Family History Family History Mother Family history of Parkinson's disease Sibling Patient's sister is in good health Family history of throat cancer, Onset Age: 39 Patient's brother is Other Family history of malignant neoplasm of breast Family history of malignant neoplasm of breast in first degree relative Social History Social History Social History: Surrogate medical decision maker: Antolin Hamilton, spouse ([phone]). Code status: Full code. Smoking status: Never smoker Second hand tobacco smoke exposure: No Alcohol intake: never Substance use: never Substance use type: does not use Do You Feel Safe in your Home?: Yes Lack of Transportation: No Lack of Food: Never True Current Housing: I Have Housing Concerned About Future Housing: No Difficulty Paying Gas/Electric Bills: No Difficulty Paying for Meds: No Currently Unemployed: No Education: Master's Degree or Higher Difficulty w/ Childcare or Family Care: No Living arrangements: with family Occupation/Education: retired Spiritual care concerns: No Agree to blood products: Yes Exam 2 Narrative: GENERAL: Well-appearing, well-nourished, and in no acute distress. HEAD: Normocephalic, atraumatic. EYES: PERRLA and EOMI. ENT: Nares clear, no rhinorrhea or epistaxis. Mucous membranes moist. NECK: Supple. CHEST: Clear to auscultation. No respiratory distress. HEART: Regular rate and rhythm. No murmur heard. Normal peripheral pulses. ABDOMEN: Soft, nontender, nondistended, normal active bowel sounds. EXTREMITIES: Normal range of motion. No edema. SKIN: Warm, dry, no rash. NEURO: No focal deficits. Alert and oriented x3. PSYCH: Normal mood and affect. Course Course Emergency Course: Notified patient and about her lab work, EKG and chest x-ray findings. Cause of her pain is unknown however recommend had follow-up with the hardware engineering manager for outpatient stress test. Vital Signs Vital signs: Vital Signs Temperature 36.4 C 05/22/25 11:35 Pulse Rate 63 05/22/25 11:35 Respiratory Rate 18 05/22/25 11:35 Blood Pressure 150/55 H 05/22/25 11:35 Pulse Oximetry 100 05/22/25 11:35 Oxygen Delivery Room Air 05/22/25 11:35 Temperature 36.4 C 05/22/25 11:35 Pulse Rate 61 05/22/25 13:48 Respiratory Rate 18 05/22/25 13:48 Blood Pressure 131/72 05/22/25 13:48 Pulse Oximetry 100 05/22/25 13:48 Oxygen Delivery Room Air 05/22/25 11:35 MDM - Chest Pain Differential Diagnosis Differential diagnosis: Likely unstable angina pectoris, atypical chest pain and chest pain Medical Records Data Attestation: I reviewed the patient's medical records. Lab Data Attestation: I reviewed the patient's lab results. 05/22/25 11:40 05/22/25 11:40 Labs: Lab Results 05/22/25 05/22/25 05/22/25 Range/Units 11:40 13:54 14:32 WBC 4.1 L (4.5-10.0) K/mm3 RBC 4.19 L (4.2-5.4) M/mm3 Hgb 12.8 (12.0-15.0) g/dL Hct 39.5 (37.0-47.0) % MCV 94.3 (80-100) fl MCH 30.5 (26-34) pg MCHC 32.4 (32-36) g/dl RDW 13.6 (11.5-14.5) % Plt Count 229 (150-375) k/mm3 MPV 10.6 H (7.4-10.4) fl Immature Gran % (Auto) 1.0 H (0-0.5) % Neut % (Auto) 43.7 L (45.5-73.1) % Lymph % (Auto) 45.3 H (18.3-44.2) % [place] % (Auto) 9.1 H (2.6-8.5) % Eos % (Auto) 0.7 (0-4.4) % Baso % (Auto) 0.2 (0.2-1.2) % Lymph # (Auto) 1.85 (0.9-3.2) K/mm3 [place] # (Auto) 0.4 (0.1-0.6) K/mm3 Eos # (Auto) 0.0 (0-0.3) K/mm3 Baso # (Auto) 0.0 (0.0-0.1) K/mm3 Abs Immat Gran (auto) 0.04 H (0.00-0.031) K/mm3 Absolute Neuts (auto) 1.8 (1.3-6.7) K/mm3 Absolute Nucleated RBC 0.000 (0.0-0.012) K/mm3 Nucleated RBC % 0.0 (0.0-0.2) % PT 12.9 (11.1-14.7) Seconds INR 1.0 APTT 31.6 (22.3-36.8) Seconds Sodium 133 L (137-145) mmol/L Potassium 4.0 (3.4-5.0) mmol/L Chloride 99 (98-107) mmol/L Carbon Dioxide 25 (22-30) mmol/L Anion Gap 9 (4-12) mmol/L BUN 14 (7-17) mg/dL Creatinine 0.84 (0.7-1.0) mg/dL Estim Creat Clear Calc 41 ml/min Estimated GFR > 60 (59 - ) Glucose 99 (65-110) mg/dL Calcium 9.4 (8.4-10.2) mg/dL Total Bilirubin 0.5 (0.2-1.3) mg/dL AST 30 (14-36) U/L ALT 19 (6-35) U/L Alkaline Phosphatase 81 (38-126) U/L Troponin I < 0.012 < 0.012 (0.000-0.034) ng/mL Total Protein 7.7 (6.3-8.2) g/dL Albumin 4.5 (3.5-5.1) g/dL Lipase 107 (23-300) U/L Urine Color Yellow (Yellow) Urine Appearance Cloudy H (Clear) Urine pH 7.0 (5.0-9.0) Ur Specific [place] 1.012 (1.001-1.035) Urine Protein Negative (Negative) mg/dL Urine Glucose (UA) Negative (Negative) mg/dL Urine Ketones Trace H (Negative) mg/dL Ur Blood (Man) Negative (Negative) Urine Nitrate Negative (Negative) Urine Bilirubin Negative (Negative) Urine Urobilinogen 0.2 (<2.0) mg/dL Leukocyte Esterase Rfl Negative (Negative) MIYA/UL Urine RBC 0-2 (0-2) /hpf Urine WBC 0-5 (0-3) /hpf Ur Squamous Epith Cells None seen (Few) /hpf Urine Bacteria None seen /hpf Urine Casts 0-2 Imaging Data Radiologist's impression: ITS Impressions Chest X-Ray 05/22/25 12:48 IMPRESSION: 1: NO ACUTE CARDIOPULMONARY DISEASE. ECG Data EKG #1: ECG completion date: 05/22/25 ECG completion time: 11:36 EKG Interpretation: normal rate (69), sinus rhythm, no ectopy, no ST changes and normal QRS EKG #2: ECG completion date: 05/22/25 ECG completion time: 14:37 EKG Interpretation: normal rate (62), sinus rhythm, no ectopy, no ST changes, normal QRS, normal QT and NL axis Discharge Plan Discharge Clinical Impression: Chest pain Qualifiers: Chest pain type: unspecified Qualified Code(s): R07.9 - Chest pain, unspecified Patient Disposition: Home Condition: Stable Instructions: Chest Pain (ED) Additional Instructions: continue home medications ,follow with your doctor as well as hardware engineering manager number given below. Patient Language: Bulgarian Prescriptions: No Action multivitamin with minerals [Multiple Vitamin-Minerals] Tablet 1 tablet PO DAILY divalproex 250 mg tablet,delayed release (DR/EC) 250 mg PO ONCE ciclopirox 0.77 % cream 1 applic topical ONCE Rx Instructions: apply thin layer once a day before bedtime buspirone 5 mg tablet 5 mg PO ONCE omega 9-etb-ctt-fish oil [Fish Oil] 1,000 (120-180) mg capsule 1 cap PO DAILY Follow-up/Referrals: Cristine Plunkett MD [Primary Care Provider, Family Practice] Time of Disposition: 15:46
[2025-05-22 15:56] VITALS: BP 172/70; PULSE 65; RESP 17; O2SAT 96
== END 2025-05-22 15:58 | disposition home or self-care (01) ==
PROVIDERS: Emergency Provider Family Medicine; PCP Family Medicine
DX: R07.9 Chest pain, unspecified (principal); E03.9 Hypothyroidism, unspecified; E78.5 Hyperlipidemia, unspecified; F41.9 Anxiety disorder, unspecified; F39 Unspecified mood [affective] disorder; Z96.652 Presence of left artificial knee joint; Z90.710 Acquired absence of both cervix and uterus; Z79.899 Other long term (current) drug therapy; R94.31 Abnormal electrocardiogram [ECG] [EKG]; I51.7 Cardiomegaly
CPT/HCPCS: 36415; 71046; 80053; 81001; 83690; 84484; 85025; 85610; 85730; 93005; 99284

== ENCOUNTER 2025-07-09 08:24 | Outpatient (CLI) | payer MEDICARE, SELFPAY ==
--- OUTSIDE RECORDS SUMMARY | 2024-02-06 14:00 | XMS_ITS ---
Author Organization [facility] Address [address] [place] [address] Phone [phone] Care Team Providers Care Pricing Coordinator Name Role Phone Seven BACA, Regis Primary Care Provider [facility] Services Unav ailable Unavailable REASON FOR VISIT Psych F/U Social History Sex Observation Social History Observation Description Sex Observation Female Sexual Orientation Social History Observation Description Sexual Orientation Straight or heterose xual Gender Identity Social History Observation Description Gender Identity Female Encounters Date Time Type Facility Location Provider Diagnosis 02/06/2024 02:00 PM Office Visit [place] [address] [place] [address] Regis Amezcua Plan Of Treatment Next Appt Details Provider Name:Regis Amezcua, 02:00:00 PM, [address] [facility], [place], [address], Medical (General) History Surgical History Surgery Date(Month/Year) Hospitalization History Reason Date(Month/Year) Left knee surg at [facility] 05/10/20 21 Progress Notes * Joanie LONGOB:[birth year] (80 yo F)Acc No.[id number]:02/06/2024 UNLOCKED PROGRESS NOTE Patient: Joanie LLAMAS Provider: Vicki Amezcua :1945 A ge:78 Y S ex:Female Date:02/06/2024 Address:[facility] [address] [place], [place] Subjective: * Chief Complaints: * 1 . Psych F/U. * Screening: * * Medical History: Objective: * Vitals: Assessment: Plan: * Treatment: * * Electronic signature of Regis Amezcua MD, [id number] on 07/09/2025 at 08:46 AM ACUTE CARE PHYSICIAN Sign off status: Pending * Provider: Vicki Amezcua Date: 0 02/06/2024 Generated for Jose forbes/Rosa Maria/Bibiana on: 1 09/09/2024 08:46 AM ACUTE CARE PHYSICIAN
--- OUTSIDE RECORDS SUMMARY | 2024-02-13 13:40 | XMS_ITS ---
Author Organization [facility] Address [address] [place] [address] Phone [phone] Care Team Providers Care Global Marketing Manager Name Role Phone Regis Amezcua MD Primary Care Provider [phone] [facility] Unav ailable Unavailable REASON FOR VISIT LM change to PHONE-mlr psych f/u Social History Sex Observation Social History Observation Description Sex Observation Female Sexual Orientation Social History Observation Description Sexual Orientation Straight or heterose xual Gender Identity Social History Observation Description Gender Identity Female Encounters Date Time Type Facility Location Provider Diagnosis 02/13/2024 01:40 PM Office Visit [facility] [place] [place] [address] Regis Amezcua Plan Of Treatment Next Appt Details Provider Name:Regis Amezcua, 02:00:00 PM, [address] [facility] [facility] [place], [address], Medical (General) History Surgical History Surgery Date(Month/Year) Hospitalization History Reason Date(Month/Year) Left knee surg at [facility] 05/10/20 21 Progress Notes * SIMONEJoanie SIMMONS AnniOB:[birth year] (80 yo F)Acc No.[id number]:02/13/2024 UNLOCKED PROGRESS NOTE Patient: Joanie LLAMAS Provider: Vicki Amezcua :1945 A ge:78 Y S ex:Female Date:02/13/2024 [facility] [address] [id number] Subjective: * Chief Complaints: * 1 . LM change to PHONE-mlr psych f/u. * Screening: * * Medical History: Objective: * Vitals: Assessment: Plan: * Treatment: * * Electronic signature of Regis Amezcua MD, [id number] on 07/09/2025 at 08:45 AM BIGHT MAKER Sign off status: Pending * Provider: Vicki Amezcua Date: 0 02/13/2024 Generated for Jose forbes/Rosa Maria/Bibiana on: 1 09/09/2024 08:45 AM BIGHT MAKER
--- OUTSIDE RECORDS SUMMARY | 2024-05-27 08:20 | XMS_ITS ---
Author Organization [facility] Address [address] [place] [address] Phone [phone] Care Team Providers Care Fusing Machine Tender Name Role Phone Seven BACA, [facility] Primary Care Provider [phone] [facility] Unav ailable Unavailable Allergies Allergen (clinical drug ingredient) Drug/Non Drug Allergy documented on EMR Reaction Allergy Type Onset Date Status Monosodium glutamate MSG (uncoded) Unknown Allergy Active REASON FOR VISIT labs Medications Medication SIG (Take, Route, Frequency, Duration) Notes Start Date End Date Diagnosis (ICD Code) Status Magnesium Oxide 250 MG Tablet 1 tablet as needed Orally Once a day Not-Taking [place] 3 1000 MG Capsule 1 capsule Orally Once a day Active busPIRone HCl 5 MG Tablet 1 tablet Orally Twice a day; Duration: 90 days Schizoaffective disorder (ICD_10 - F25.9) Active risperiDONE 0.5 MG Tablet 1 tablet bedtime Orally twice a day; Duration: 90 days Schizoaffective disorder (ICD_10 - F25.9) Active Calcium Carbonate-Vitami n D 500-200 MG-UNIT Tablet 1 tablet with food Orally Once a day Active Divalproex Sodium 250 MG Tablet Delayed Release 1 tablet Orally twice a day; Duration: 90 days Schizoaffective disorder (ICD_10 - F25.9) Active Social History Sex Observation Social History Observation Description Sex Observation Female Sexual Orientation Social History Observation Description Sexual Orientation Straight or heterose xual Gender Identity Social History Observation Description Gender Identity Female Encounters Date Time Type Facility Location Provider Diagnosis 2024 08:20 AM Office Visit [facility] [address] [place] [address] Regis Amezcua Plan Of Treatment Next Appt Details Provider Name:Regis Amezcua, 02:00:00 PM, [address] [facility] , [place], [address], Medical (General) History Surgical History Surgery Date(Month/Year) Hospitalization History Reason Date(Month/Year) Left knee surg at [facility] 05/10/20 21 Progress Notes * Joanie LONGOB:[birth year] (80 yo F)Acc No.[id number]:2024 UNLOCKED PROGRESS NOTE Patient: Joanie LLAMAS Provider: Vicki Amezcua :1945 A ge:79 Y S ex:Female Date:2024 Address:[facility] [address] [facility] [facility] Check In:08:06 AM ASPHALT TILE FLOOR LAYER Subjective: * Chief Complaints: * 1 . Labs. * Screening: * * Medical History: * Medications: T aking Calcium Carbonate-Vitamin D 500-200 MG-UNIT Tablet 1 tablet with food Orally Once a day , Taking [place] 3 1000 MG Capsule 1 capsule Orally [...] * Electronic signature of Regis Amezcua MD, [id number] on 07/09/2025 at 08:46 AM ASPHALT TILE FLOOR LAYER Sign off status: Pending * Provider: Vicki Amezcua Date: 07/27/2023 Generated for Jose forbes/Rosa Maria/eTransmitting on: 1 09/09/2024 08:46 AM ASPHALT TILE FLOOR LAYER
--- NOTE | ~2025-07-09 | NM_ITS ---
EXAMINATION: NM kirk stress w perfusion DATE: 07/09/2025 12:28 INDICATION: Chest pain TECHNIQUE: Rest images were obtained following intravenous administration of 10.3 mCi Tc99m tetrofosmin (Myoview). The patient was infused intravenously with Lexiscan (Regadenoson). Then, 31.2 mCi Tc99m tetrofosmin (Myoview) was administered intravenously, and stress images were obtained. Data was vilma nstructed into short axis and horizontal and vertical long axis SPECT images. Gated SPECT images were also obtained. COMPARISON: None. FINDINGS: There is no definite reversible or fixed perfusion abnormality to suggest ischemia or infarction. There is normal left ventricular chamber size, wall motion and ejection fraction. Left ventricular ejection fraction measures >70%. IMPRESSION: 1. Normal myocardial perfusion at rest and during stress. 2. Left ventricular ejection fraction measuring >70%. Reviewed, dictated and finalized at location A. [facility]
--- OUTSIDE RECORDS SUMMARY | 2025-07-09 08:46 | XMS_ITS | Clinical Summary ---
Author Organization [facility] Address [address] [place] [id number] Care Team Providers Care Burglar Alarm Assembler Name Role Phone Cristine Plunkett MD Primary Care Provider [phone] Allergies Active Allergy Reactions Criticality Noted Date [...] Description 04/17/2025 11:00 AM CDT Office Visit [facility] Neurology [address] [facility] [address] [place] [phone] Filippo Lowery Si, MD Imbalance (Primary [...] 65+ Completed 04/30/2021, 09/23 Insurance MEDICARE [facility] Address: [facility] [address] [place] [address] Care Teams Burglar Alarm Assembler Relationship Specialty Start Date End Date Cristine Plunkett MD PCP - General Family Medicine 02/14/25
--- OUTSIDE RECORDS SUMMARY | 2025-07-09 08:46 | XMS_ITS | Patient Health Record ---
Author Organization [facility] Address [address] [place] [address] Phone [phone] Care Team Providers Care Furniture Crater Name Role Phone Seven [place], [facility] Primary Care Provider [phone] [facility] Unav ailable Unavailable Allergies Allergen (clinical drug ingredient) Drug/Non Drug Allergy documented on EMR Reaction Allergy Type Onset Date Status Monosodium glutamate MSG (uncoded) Unknown Allergy Active Reason For Referral No Information Medications Medication SIG (Take, Route, Frequency, Duration) Notes Start Date End Date Diagnosis (ICD Code) Status [place] 3 1000 MG Capsule 1 capsule Orally Once a day Active Magnesium Oxide 250 MG Tablet 1 tablet as needed Orally Once a day Not-Taking Calcium Carbonate-Vitami n D 500-200 MG-UNIT Tablet 1 tablet with food Orally Once a day Active Divalproex Sodium ER 250 MG Tablet Extended Release 24 Hour 1 tablet at bedtime Orally Once a day; Duration: 90 days Nutritional counseling (ICD_10 - Z71.3) Active busPIRone HCl 5 MG Tablet 1 tablet Orally Once a day; Duration: 90 days Schizoaffective disorder (ICD_10 - F25.9) Active risperiDONE 0.25 MG Tablet 1 tablet bedtime Orally Once a day; Duration: 90 days Schizoaffective disorder (ICD_10 - F25.9) Active Social History Tobacco Use: Social History Observation Description Date Details (start date - stop date) Never Smoker NA - NA Sex Observation Social History Observation Description Sex Observation Female Sexual Orientation Social History Observation Description Sexual Orientation Straight or heterose xual Gender Identity Social History Observation Description Gender Identity Female Social History Miscellaneous Social Info Question Answer Notes Method of learning: Preferred method of learning: Read ing,Demonstration Primary Social History Social Info Question Answer Notes Living Arrangement Living Arrangement: Independent Sherlyn ing Is this a supportive environment? Yes Single Question Alcohol Screening How ma ny times in the past year have you had (4 for women, or 5 for men) or more drinks in a day? 0 Employment Status Employment Status: Unemployed reti red Illicit Substance Usage Illicit Substance Usage: No Alcohol Use Alcohol Use Frequency: Never Tobacco Use: Social Info Question Answer Notes Dont use, Tobacco Use/Smoking Are you a nonsmoker Tobacco Control (Standard) Tobacco use: Nonsmoker Problems Problem Type SNOMED Code ICD Code Dates Problem Status W/U Status Risk Notes Problem Schizoaffective disorder (33856270) Schizoaffective disorder (F25.9) Added On:09/20 Active confirmed Problem Overweight (019031948) Over weight (E66.3) Added On:01/28 Active confirmed Vital Signs Vital Sign Value Notes Appt Date Heart Rate 65 /min 04/22/2025 Respiratory Rate 16 /min 04/22/2025 Blood pressure diastolic 70 mm Hg Oximetry 98 % 04/22/2025 Height 65in in 04/22/2025 Blood pressure systolic 116 mm Hg 03/26 Weight 150.8lbs lbs 04/22/2025 BMI 25.09 kg/m2 04/22/2025 Encounters Date Time Type Facility Location Provider Diagnosis 08/13/19 25 01:40 PM Office Visit, Est Pt., Level 3 ([address]66) [address] [place] [address] Arif Habib Nutritional counseling Z71.3 and Schizoaffective disorder F25.9 11/06/19 25 02:00 PM Office Visit, Est Pt., Level 3 ([address]81) [address] [place] [address] Arif Habib Nutritional counseling Z71.3 and Schizoaffective disorder F25.9 01/29/20 25 02:00 PM Office Visit, Est Pt., Level 3 ([address]) [address] [address] Arif Habib Over weight E66.3 ; Nutritional counseling Z71.3 and Schizoaffective disorder F25.9 04/22/20 25 02:00 PM Office Visit, Est Pt., Level 3 (29090) [address] [address] Arif Habib Over weight E66.3 ; Nutritional counseling Z71.3 and Schizoaffective disorder F25.9 04/14/20 25 02:29 PM Telephone Encounter [address] [address] Arif Habib Assessments Encounter Date Diagnosis (ICD Code) Assessment Notes Treat ment Notes Section Notes 08/13/2024 Nutritional counseli ng (ICD-10 - Z71.3) 11/05/2024 Nutritional counseli ng (ICD-10 - Z71.3) 01/28/2025 Over weight (ICD-10 - E66.3) 04/22/2025 Over weight (ICD-10 - E66.3) 04/22/2025 Nutritional counseli ng (ICD-10 - Z71.3) 01/28/2025 Nutritional counseli ng (ICD-10 - Z71.3) 11/05/2024 Schizoaffective disorder (ICD-10 [...] [id number] 09/23/2016 Next Appt Details Provider Name:Regis Connollyzena, 02:00:00 PM, [address] [facility] [address], [place], [address], Insurance Providers Payer Name Payer Address Payer Phone Subscriber Number Group Number Insured Name Patient Relationship to Insured Coverage Start Date Coverage End Date U[employer] AARP Medicare [address] [address] [place] [address] [id number] Joanie Hyde Self - patient is the insured 3 MEDICARE PART A [address] [place] [phone] [id number] Joanie Hyde Self - patient is the insured 8 8 AARP Medicare Complete [address] [address] [place] [address] [id number] Joanie Hyde Self - patient is the insured 2 2 MEDICAID [address] [facility] [place] [address] [id number] Joanie Hyde Self - patient is the insured 7 7 UHC AARP Medicare [address] [address] [place] [address] [id number] Joanie Hyde Self - patient is the insured 9 0 Medical (General) History Surgical History Surgery Date(Month/Year) Hospitalization History Reason Date(Month/Year) Left knee surg at [facility] 05/10/20 21
--- OUTSIDE RECORDS SUMMARY | 2025-07-09 08:46 | XMS_ITS | Clinical Summary ---
Author Organization [facility] Address [address] [facility] [place] [address] Care Team Providers Care Top Case Assembler Name Role Phone Cristine Plunkett MD Primary Care Provider [phone] Source Comments [facility] Affiliates and Associated Physician Practices is amultiple site organization consisting of ambulatory clinics and hospital sitesin [place], [place], [place] and [place]. This disclosure is being madepursuant to the Care Everywhere program and may not contain all information available regarding this patient. 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
--- NOTE | 2025-07-09 08:58 | ECHO_ITS ---
Patient Info Name: Joanie Hyde Age: 80 years : 1945 Gender: Female Ht: 62 in Wt: 150 lbs BSA: 1.74 m2 HR: 98 bpm BP: 133 / 77 mmHg Heart Rhythm: Sinus Rhythm Technical Quality: Good Exam Date: 07/09/2025 9:19 AM Patient Status: O Admit Date: 07/09/2025 Exam Type: CA echo doppler color flow Complete two-dimensional, color flow and Doppler transthoracic echocardiogram is performed. Staff Referring Physician: Jason Maldonado DO Heel Brusher: Pari Coates Attending Provider: Jason Maldonado DO Summary 1. Complete two-dimensional, color flow and Doppler transthoracic echocardiogram is performed. 2. Left ventricular chamber dimension is normal. 3. Left ventricular systolic function is normal, estimated at 60-65. 4. There is mild concentric increased left ventricular wall thickness. 5. The left ventricular diastolic function is normal. 6. E/e' 9 is minimally elevated. 7. No pulmonary hypertension, estimated pulmonary arterial systolic pressure is 22 mmHg. Left Ventricle E/e' 9 is minimally elevated. Left ventricular chamber dimension is normal. Left ventricular systolic function is normal, estimated at 60-65. There is mild concentric increased left ventricular wall thickness. The left ventricular diastolic function is normal. Right Ventricle Right ventricular chamber dimension is normal. Right ventricular systolic function is normal and with normal TAPSE 2.0 cm. Left Atria Left atrial chamber dimension is normal. Right Atria Right atrial chamber dimension is normal. Aortic Valve The aortic valve is trileaflet. There is no aortic valve stenosis. There is no aortic valve regurgitation. Pulmonic Valve There is no pulmonic regurgitation. Mitral Valve There is no mitral valve stenosis. There is no mitral valve regurgitation. Tricuspid Valve There is no tricuspid valve regurgitation. No pulmonary hypertension, estimated pulmonary arterial systolic pressure is 22 mmHg. Pericardium/Pleural There is no pericardial effusion. Inferior Vena Cava Normal inferior vena cava with >50% collapse upon inspiration consistent with normal right atrial pressure, 5 mmHg. Aorta The aortic root size at the sinus of Valsalva is normal. Left Ventricular Outflow Tract Name Value Normal LVOT 2D LVOT Diameter 2.0 cm LVOT Doppler LVOT Peak Velocity 78 cm/s LVOT Peak Gradient 2 mmHg LVOT Mean Gradient 1 mmHg LVOT VTI 15 cm LVOT VTI/AV VTI Ratio 0.7 LVOT Stroke Volume 47 ml LVOT CO 4.3 l/min LVOT CI 2.5 l/min/m2 Pulmonic Valve Name Value Normal RVOT Doppler RVOT Peak Velocity 61 cm/s RVOT Peak Gradient 1 mmHg PV Doppler PV Peak Velocity 80 cm/s PV Peak Gradient 3 mmHg Mitral Valve Name Value Normal MV Diastolic Function MV E Peak Velocity 131 cm/s MV A Peak Velocity 2 cm/s MV E/A 80.9 MV Decel Time (PW) 154 ms MV Annular TDI MV E/e' (Septal) 11.5 MV E/e' (Lateral) 8.2 MV E/e' (Average) 9.8 Tricuspid Valve Name Value Normal TV Regurgitation Doppler TR Peak Velocity 207 cm/s TR Peak Gradient 17 mmHg Estimated PAP/RSVP RA Pressure 5 mmHg <=5 PA Systolic Pressure 22 mmHg <36 RV Systolic Pressure 22 mmHg <36 TV Annular TDI TV Lateral Ilsa s' Velocity 9.4 cm/s >=9.5 Aorta Name Value Normal Ascending Aorta Ao Root Diameter (MM) 2.7 cm Ao Root Diam Index (MM) 1.6 cm/m2 Aortic Valve Name Value Normal AV Doppler AV Peak Velocity 121 cm/s AV Peak Gradient 6 mmHg AV Mean Gradient 3 mmHg AV VTI 23 cm AV Area (Cont Eq VTI) 2.1 cm2 >=3.0 AV Area (Cont Eq Ted) 1.9 cm2 AV DI (Ted) 0.64 AV Regurgitation 2D LVOT Area 3.0 cm2 Ventricles Name Value Normal LV Dimensions 2D/MM IVS Diastolic Thickness (2D) 0.8 cm 0.6-1.0 LVID Diastole (2D) 3.9 cm 3.8-5.2 LVIW Diastolic Thickness (2D) 0.8 cm 0.6-0.9 LVID Systole (2D) 2.5 cm 2.2-3.5 LVOT Diameter 2.0 cm LV Mass (2D Cubed) 90.25 g 67.00-162.00 LV Mass Index (2D Cubed) 52 g/m2 43-95 Relative Wall Thickness (2D) 0.40 <=0.42 LV Fractional Shortening/Ejection Fraction 2D/MM LV Fractional Shortening (2D) 37 % 27-45 LV EF (2D Teichholz) 67 % LV Diastolic Volume (4C MOD) 45 ml LV EF (4C MOD) 62 % LV Diastolic Volume (2C MOD) 39 ml LV EF (2C MOD) 64 % LV Diastolic Volume (BP MOD) 42 ml 46-106 LV Diastolic Volume Index (BP MOD) 24 ml/m2 29-61 LV Systolic Volume (BP MOD) 16 ml 14-42 LV Systolic Volume Index (BP MOD) 9 ml/m2 8-24 LV EF (BP MOD) 62 % 54-74 LV Diastolic Length (4C) 7.1 cm LV Systolic Length (4C) 5.6 cm LV Stroke Volume (4C MOD) 28 ml Atria Name Value Normal LA Dimensions LA Dimension (MM) 3.1 cm 2.7-3.8 LA Volume (4C A-L) 35 ml LA Volume (BP A-L) 41 ml RA Dimensions RA Area (4C) 10.4 cm2 <=18.0 Report Signatures
--- NOTE | 2025-07-09 08:58 | EST_ITS ---
Patient Info Name: Joanie Hyde Age: 80 years : 1945 Gender: Female Ht: 62 in Wt: 150 lbs BSA: 1.74 m2 HR: 93 bpm BP: 144 / 76 mmHg Exam Date: 07/09/2025 8:58 AM Patient Status: O Admit Date: 07/09/2025 Exam Type: CA stress kirk w NM A regadenoson stress test was performed. Staff Referring Physician: Jason Maldonado DO Attending Provider: Jason Maldonado DO Exercise Technologist: Jane Echeverria Exercise Physician: Jason Maldonado DO Summary 1. 1. Negative lexiscan stress test for ischemic ST changes by ECG criteria. 2. 2. Baseline hypertension. 3. 3. Nuclear scan to follow and will be reported separately. Please correlate with it. 4. 4. Patient informed of the above results. Protocol: Lexiscan Stress ECG Details Stage: REST Duration (min): 1 min : 1 sec HR (bpm): 94 SBP (mmHg): 144 DBP (mmHg): 76 Stage: REST Duration (min): 3 min : 58 sec HR (bpm): 93 SBP (mmHg): 144 DBP (mmHg): 76 Stage: STAGE 1 Duration (min): 0 min : 59 sec HR (bpm): 123 SBP (mmHg): 130 DBP (mmHg): 77 Stage: RECOVERY Duration (min): 1 min : 0 sec HR (bpm): 128 SBP (mmHg): 130 DBP (mmHg): 77 Stage: RECOVERY Duration (min): 2 min : 0 sec HR (bpm): 122 SBP (mmHg): 130 DBP (mmHg): 77 Stage: RECOVERY Duration (min): 3 min : 0 sec HR (bpm): 123 SBP (mmHg): 137 DBP (mmHg): 70 Stage: RECOVERY Duration (min): 4 min : 0 sec HR (bpm): 119 SBP (mmHg): 137 DBP (mmHg): 70 Stage: RECOVERY Duration (min): 5 min : 0 sec HR (bpm): 120 SBP (mmHg): 140 DBP (mmHg): 64 Stage: RECOVERY Duration (min): 6 min : 0 sec HR (bpm): 119 SBP (mmHg): 140 DBP (mmHg): 64 Stage: RECOVERY Duration (min): 7 min : 0 sec HR (bpm): 116 SBP (mmHg): 139 DBP (mmHg): 59 Stage: RECOVERY Duration (min): 7 min : 21 sec HR (bpm): 116 SBP (mmHg): 139 DBP (mmHg): 59 Rest HR: 93 bpm Peak HR: 130 bpm Rest Sys BP: 144 mmHg Peak Sys BP: 140 mmHg Max Pred HR: 138 bpm % Max Pred HR: 94 % Target HR: 117 bpm Max RPP: 18,200 bpm*mmHg Termination Reason: Completed protocol Cardiac Symptoms: Shortness of breath Total Time: 1 min : 0 sec Rest May BP: 76 mmHg Peak May BP: 64 mmHg Total Dose: 0.4 mg Resting ECG Sinus rhythm. Stress ECG No ST changes. Arrhythmias None. Report Signatures
== END 2025-07-09 08:25 | disposition home or self-care (01) ==
PROVIDERS: Visit Provider Internal Medicine Cardiovascular Disease
DX: R06.09 Other forms of dyspnea (principal); R93.1 Abnormal findings on diagnostic imaging of heart and coronary circulation; I10 Essential (primary) hypertension
CPT/HCPCS: 78452; 93017; 93306; A9502; J2785